=== PATIENT | female | born 1970 | race African-American/Black ===

== ENCOUNTER 2016-11-16 19:51 | Emergency (ER) | payer MEDICARE, MEDICAID ==
[2016-11-16] MEDS ORDERED: ASPIRIN 81 MG TABLET, CHEWABLE PO ONE (20:00)
--- NOTE | 2016-11-16 20:00 | ER Document Report ---
ED Medical Screen (RME) - General Stated Complaint: LEG CRAMPING,DIZZINESS Time seen by provider: 19:54 Mode of Arrival: Wheelchair Information source: Patient Notes: 45-year-old female presents to ED for dizziness and leg cramps with body aches. This happened last week and actually passed out she went to the doctor received a new diagnosis she is unsure of the exact Today she states she was very dizzy felt like she was going pass out again had leg cramps both legs and body aches. Now is having some chest tightness feels like somebody is pushing on her chest for the last 20 minutes. She states again she felt like she was can pass out and she was starting to fall with when her fianc had to call catcher. States her mother had a heart attack or first one in her 40s she is now. I have greeted and performed a rapid initial assessment of this patient. A comprehensive ED assessment and evaluation of the patient, analysis of test results and completion of medical decision making process will be conducted by an additional ED providers. TRAVEL OUTSIDE OF THE [place] IN LAST 30 DAYS: No - Related Data Allergies/Adverse Reactions: codeine [Codeine] Allergy (Verified 11/16/16 19:54) Penicillins Allergy (Verified 11/16/16 19:54) Sulfa (Sulfonamide Antibiotics) Allergy (Verified 11/16/16 19:54) Past Medical History - Past Medical History Cardiac Medical History: Reports: Hx Hypertension - stopped meds 2 years ago Musculoskeltal Medical History: Reports Hx Arthritis - Rheumatoid Past Surgical History: Reports: Hx Cholecystectomy, Hx Orthopedic Surgery - Immunizations Immunizations up to date: No Hx Diphtheria, Pertussis, Tetanus Vaccination: Yes - unknown
[2016-11-16] MEDS ORDERED: ASPIRIN 81 MG TABLET, CHEWABLE ONE (20:02)
[2016-11-16] MEDS ORDERED: NORMAL SALINE 1000 ML 500 ML IV ONE (20:51)
[2016-11-16] MEDS ORDERED: LEVOFLOXACIN 500 MG/D5W RTU 100 ML IV ONE (20:51)
--- NOTE | 2016-11-16 20:54 | EKG REPORT ---
SEVERITY:- BORDERLINE ECG - SINUS RHYTHM BORDERLINE T WAVE ABNORMALITIES : Confirmed by: Moises Amezquita MD 16-Nov-2016 20:53:22
[2016-11-16 22:19] LABS: ALANINE AMINOTRANSFERASE 34 U/L (9-52); ALBUMIN 3.5 g/dL (3.5-5.0); ALKALINE PHOSPHATASE 63 U/L (38-126); ANION GAP 9 (5-19); ASPARTATE AMINO TRANSFERASE 19 U/L (14-36); BILIRUBIN,DIRECT 0.1 mg/dL (0.0-0.3); BILIRUBIN,TOTAL 0.3 mg/dL (0.2-1.3); BLOOD UREA NITROGEN 11 mg/dL (7-20); CALCIUM 8.6 mg/dL (8.4-10.2); CARBON DIOXIDE 29 mmol/L (22-30); CHLORIDE 101 mmol/L (98-107); CREATINE KINASE 25 U/L (30-135); CREATININE RESULT 0.68 mg/dL (0.52-1.25); GLUCOSE 149 mg/dL (75-110); MAGNESIUM 1.9 mg/dL (1.6-2.3); POTASSIUM 3.3 mmol/L (3.6-5.0); SODIUM 138.9 mmol/L (137-145); TOTAL PROTEIN 5.8 g/dL (6.3-8.2)
[2016-11-16 22:31] LABS: CREATINE KINASE MB 0.45 ng/mL (<4.55); TROPONIN I 0.026 ng/mL
[2016-11-16] MEDS ORDERED: POTASSIUM CHLORIDE 10 MEQ TABLET.SA PO ONE (22:46)
[2016-11-16 23:07] LABS: ABSOLUTE BASOPHILS # (AUTO) 0.1 10^3/uL (0.0-0.2); ABSOLUTE EOSINOPHILS # (AUTO) 0.1 10^3/uL (0.0-0.6); ABSOLUTE LYMPHOCYTES (AUTO) 1.8 10^3/uL (0.5-4.7); ABSOLUTE MONOCYTES (AUTO) 0.6 10^3/uL (0.1-1.4); ABSOLUTE NEUT (AUTO) 12.9 10^3/uL (1.7-8.2); BASOPHILS % (AUTO) 0.4 % (0-2); EOSINOPHILS % (AUTO) 0.8 % (0-6); HEMOGLOBIN 10.4 g/dL (12.0-15.5); HGB HCT DIFFERENCE -0.8; LYMPHOCYTES % (AUTO) 11.5 % (13-45); MEAN CORPUSCULAR HEMOGLOBIN 25.9 pg (27.0-33.4); MEAN CORPUSCULAR HGB CONC 32.3 g/dL (32.0-36.0); MEAN CORPUSCULAR VOLUME 80 fl (80-97); MONOCYTES % (AUTO) 4.1 % (3-13); RED CELL DISTRIBUTION WIDTH 18.8 % (11.5-14.0); SEGMENTED NEUTROPHILS % (AUTO) 83.2 % (42-78); WHITE BLOOD COUNT 15.5 10^3/uL (4.0-10.5)
--- NOTE | 2016-11-17 00:10 | ER Document Report ---
ED General - General Chief Complaint: Leg Pain Stated Complaint: LEG CRAMPING,DIZZINESS Mode of Arrival: Wheelchair TRAVEL OUTSIDE OF THE [place] IN LAST 30 DAYS: No - HPI Patient complains to provider of: leg cramping dizziness body aches Notes: Patient with a history of lupus coming in for dizziness and body aches states is been ongoing for the last few days. Patient denies any fevers chills nausea vomiting chest pain abdominal pain. Denies any recent travel patient states she has been compliant with her medications. States night sweats at home. - Related Data Allergies/Adverse Reactions: codeine [Codeine] Allergy (Verified 11/16/16 19:54) Penicillins Allergy (Verified 11/16/16 19:54) Sulfa (Sulfonamide Antibiotics) Allergy (Verified 11/16/16 19:54) Past Medical History - General Information source: Patient - Social History Smoking Status: Current Every Day Smoker Chew tobacco use (# tins/day): No Frequency of alcohol use: None Drug Abuse: None Family History: None, Hypertension Patient has suicidal ideation: No Patient has homicidal ideation: No - Past Medical History Cardiac Medical History: Reports: Hx Hypertension - stopped meds 2 years ago Renal/ Medical History: Denies: Hx Peritoneal Dialysis Musculoskeltal Medical History: Reports Hx Arthritis - Rheumatoid Past Surgical History: Reports: Hx Cholecystectomy, Hx Orthopedic Surgery - Immunizations Immunizations up to date: No Hx Diphtheria, Pertussis, Tetanus Vaccination: Yes - unknown Review of Systems - Review of Systems Constitutional: Other - Dizziness body aches cramps EENT: No symptoms reported Cardiovascular: No symptoms reported Respiratory: No symptoms reported Gastrointestinal: No symptoms reported Genitourinary: No symptoms reported Female Genitourinary: No symptoms reported Musculoskeletal: No symptoms reported Skin: No symptoms reported Hematologic/Lymphatic: No symptoms reported Neurological/Psychological: No symptoms reported Physical Exam - Vital signs Vitals: Temp Pulse Resp BP Pulse Ox 98.8 F 103 H 17 105/66 98 11/16/16 19:56 11/16/16 19:56 11/16/16 19:56 11/16/16 19:56 11/16/16 19:56 Interpretation: Normal - General General appearance: Appears well, Alert - HEENT Head: Normocephalic, Atraumatic Eyes: Normal Pupils: PERRL - Respiratory Respiratory status: No respiratory distress Chest status: Nontender Breath sounds: Normal Chest palpation: Normal - Cardiovascular Rhythm: Regular Heart sounds: Normal auscultation Murmur: No - Abdominal Inspection: Normal Distension: No distension Bowel sounds: Normal Tenderness: Nontender Organomegaly: No organomegaly - Back Back: Normal, Nontender - Extremities General upper extremity: Normal inspection, Nontender, Normal color, Normal ROM , Normal temperature General lower extremity: Normal inspection, Nontender, Normal color, Normal ROM , Normal temperature, Normal weight bearing. No: Lele's sign - Neurological Neuro grossly intact: Yes Cognition: Normal Orientation: AAOx4 [place] Coma Scale Eye Opening: Spontaneous Baltazar Coma Scale Verbal: Oriented [place] Coma Scale Motor: Obeys Commands Baltazar Coma Scale Total: 15 Speech: Normal Motor strength normal: LUE, RUE, LLE, RLE Sensory: Normal - Psychological Associated symptoms: Normal affect, Normal mood - Skin Skin Temperature: Warm Skin Moisture: Dry Skin Color: Normal Course - Re-evaluation Re-evalutation: 11/17/16 00:09 Chest x-ray shows possible developing pneumonia must with explain the patient's night sweats. Patient does have elevation in her WBCs. Patient was given a dose of Levaquin. Patient also shows that her potassium is low and magnesium looks within normal limits. Patient was given oral potassium here IV fluids blood pressure improved. Patient feeling better agrees with plan to be discharged home. 11/17/16 00:34 - Vital Signs Vital signs: Temp Pulse Resp BP Pulse Ox 98.6 F 96 18 111/61 99 11/16/16 23:15 11/16/16 23:15 11/16/16 23:15 11/16/16 23:15 11/16/16 23:15 - Laboratory Result Diagrams: 11/16/16 22:55 11/16/16 21:40 Laboratory results interpreted by me: 11/16/16 11/16/16 21:40 22:55 WBC 15.5 H Hgb 10.4 L Hct 32.0 L MCH 25.9 L RDW 18.8 H Seg Neutrophils % 83.2 H Lymphocytes % 11.5 L Absolute Neutrophils 12.9 H Potassium 3.3 L Glucose 149 H Creatine Kinase 25 L Total Protein 5.8 L Discharge - Discharge Clinical Impression: Hypokalemia, Dehydration Pneumonia Qualifiers: Pneumonia type: due to unspecified organism Laterality: left Lung location: lower lobe of lung Qualified Code(s): J18.1 - Lobar pneumonia, unspecified organism Condition: Good Disposition: HOME, SELF-CARE Instructions: Pneumonia ([facility]), Levofloxacin, Leg Cramps ([facility]), Hypokalemia ([facility] ) Additional Instructions: Please follow-up with your primary care physician. You may need potassium replacement. Please take antibiotics as prescribed. Please drink plenty of fluids to stay hydrated. Prescriptions: Hydrocodone Bit/Acetaminophen [Hydrocodon-Acetaminophen 5-325] 1 each PO Q6 #14 tablet Levofloxacin [Levaquin] 500 mg PO DAILY 9 Days Referrals: EVANGELIST GOODE MD [Primary Care Provider] - Follow up as needed
[2016-11-17] MEDS ORDERED: HYDROCODONE/ACETAMINOPHEN 5-325 MG 6 TAB/DSPK PO PRN (00:32)
[2016-11-17 00:54] VITALS: BP 106/62
== END 2016-11-17 00:51 | disposition home or self-care (01) ==
LOC: ER 19:51
DX: E87.6 Hypokalemia (principal); E86.0 Dehydration; J18.1 Lobar pneumonia, unspecified organism; D72.829 Elevated white blood cell count, unspecified; R42 Dizziness and giddiness; R25.2 Cramp and spasm; R61 Generalized hyperhidrosis; I10 Essential (primary) hypertension; F17.200 Nicotine dependence, unspecified, uncomplicated; Z79.899 Other long term (current) drug therapy; Z88.5 Allergy status to narcotic agent; Z88.0 Allergy status to penicillin; Z88.2 Allergy status to sulfonamides
CPT/HCPCS: 93005; 99283; 96365; 36415; 87040; 82553; 82550; 83735; 85025; 80053; 84484; 71020; 93010; A9270 ×3; J1956; J7030

== ENCOUNTER → 2016-12-03 | Outpatient (CLI) | payer MEDICARE, MEDICAID | LOC: RAD 07:57 | PROVIDERS: ATTEND Internal Medicine | DX: M54.12 Radiculopathy, cervical region (principal) | CPT/HCPCS: 72141 ==

== ENCOUNTER → 2017-04-10 | Outpatient (CLI) | payer MEDICARE, MEDICAID ==
--- NOTE | 2017-04-10 13:55 | RADIOLOGY REPORT (SQ) ---
EXAM DESCRIPTION: SACROILIAC JOINTS COMPLETED DATE/TIME: 04/10/2017 1:11 pm REASON FOR STUDY: SACROILIITIS M46.1 SACROILIITIS, NOT ELSEWHERE CLASSIFIED COMPARISON: 08/09/2015 NUMBER OF VIEWS: Three views. TECHNIQUE: AP and oblique views of the sacroiliac joints. LIMITATIONS: None. FINDINGS: MINERALIZATION: Normal. BONES: No acute fracture or dislocation. No worrisome bone lesions. No significant osteophytes. JOINTS: The sacroiliac joints are patent. No unusual widening, sclerosis, or fusion. SOFT TISSUES: No soft tissue swelling. No radio-opaque foreign body. OTHER: Bilateral total hip arthroplasties noted, unchanged IMPRESSION: NORMAL STUDY OF THE SACROILIAC JOINTS. TECHNICAL DOCUMENTATION: JOB ID: [id number] [employer]- All Rights Reserved
== END ==
LOC: OD 12:56
PROVIDERS: ATTEND Internal Medicine
DX: M46.1 Sacroiliitis, not elsewhere classified (principal)
CPT/HCPCS: 72200

== ENCOUNTER 2017-04-18 11:05 | Emergency (ER) | payer MEDICARE, MEDICAID ==
[2017-04-18 11:10] VITALS: BP 156/103
[2017-04-18] MEDS ORDERED: CYCLOBENZAPRINE HCL 10 MG TABLET PO ONE (12:05)
[2017-04-18] MEDS ORDERED: KETOROLAC TROMETHAMINE 60 MG/2 ML SDV IM ONE (12:05)
--- NOTE | 2017-04-18 12:05 | ER Document Report ---
ED Neck/Back Problem - General Chief Complaint: Back Pain Stated Complaint: BACK PAIN Time Seen by Provider: 04/18/17 11:39 Notes: Patient is a 46-year-old female presents emergency department complaining of right sciatica that she has had since 2014 but has become worse over the past month. Patient has associated radiculopathy from associated lupus and rheumatoid arthritis. Patient states that she has been taking Aleve over-the- counter with mild relief in her symptoms. Is followed with Dr. Strong diagnosed her with sciatica. She is scheduled to [place] [facility] on May 03. She denies any urinary/stool incontinence, saddle anesthesia. Past medical history significant for lupus, rheumatoid arthritis, history of pneumonia, sciatica, hypertension, migraines Past surgical history significant for GABBY 3 on the right, TNA, D&C, history of a left salpingo-oophorectomy, left ulnar release, right trigger finger release, bilateral carpal tunnel release Social history admits to daily tobacco use, denies any alcohol or drug use. Allergies to penicillin, sulfa and codeine. TRAVEL OUTSIDE OF THE [place] IN LAST 30 DAYS: No - Related Data Allergies/Adverse Reactions: codeine [Codeine] Allergy (Verified 04/18/17 11:09) Penicillins Allergy (Verified 04/18/17 11:09) Sulfa (Sulfonamide Antibiotics) Allergy (Verified 04/18/17 11:09) Past Medical History - Social History Smoking Status: Current Every Day Smoker Family History: None, Hypertension Patient has suicidal ideation: No Patient has homicidal ideation: No - Past Medical History Cardiac Medical History: Reports: Hx Hypertension - stopped meds 2 years ago Renal/ Medical History: Denies: Hx Peritoneal Dialysis Musculoskeltal Medical History: Reports Hx Arthritis - Rheumatoid Past Surgical History: Reports: Hx Cholecystectomy, Hx Orthopedic Surgery - Immunizations Immunizations up to date: No Hx Diphtheria, Pertussis, Tetanus Vaccination: Yes - unknown Review of Systems - Review of Systems Constitutional: No symptoms reported Cardiovascular: No symptoms reported Respiratory: No symptoms reported Musculoskeletal: See HPI -: Yes All other systems reviewed and negative Physical Exam - Vital signs Vitals: Temp Pulse Resp BP Pulse Ox 98.6 F 92 18 156/103 H 98 04/18/17 11:09 04/18/17 11:09 04/18/17 11:04/18/17 11:04/18/17 11:09 - General General appearance: Appears well, Alert In distress: None - Back Back: Normal, Tender - right lumbar paraspinal muscle tenderness. No: Deformity /step-off, CVA tenderness, Vertebra tenderness, Scars, Scoliosis, Wounds - Extremities General upper extremity: Normal inspection, Nontender, Normal ROM General lower extremity: Normal inspection, Nontender, Normal color, Normal ROM , Normal strength, Normal temperature, Normal weight bearing. No: Edema - Neurological Neuro grossly intact: Yes Cognition: Normal Orientation: AAOx4 Baltazar Coma Scale Eye Opening: Spontaneous Baltazar Coma Scale Verbal: Oriented [place] Coma Scale Motor: Obeys Commands Baltazar Coma Scale Total: 15 - Skin Skin Temperature: Warm Skin Moisture: Dry Skin Color: Normal Skin Turgor: Elastic Course - Re-evaluation Re-evalutation: 04/18/17 12:05 The patient presents with low back pain without signs of spinal cord compression , cauda equina syndrome, infection, aneurysm, or other serious etiology. The patient is neurologically intact. Given the extremely low risk of these diagnoses further testing and evaluation for these possibilities does not appear to be indicated at this time. The patient has been instructed to return if the symptoms worsen or change in any way. - Vital Signs Vital signs: Temp Pulse Resp BP Pulse Ox 98.6 F 92 18 156/103 H 98 04/18/17 11:04/18/17 11:04/18/17 11:04/18/17 11:04/18/17 11:09
== END 2017-04-18 12:22 | disposition home or self-care (01) ==
LOC: ER 11:05
DX: M54.41 Lumbago with sciatica, right side (principal); M06.9 Rheumatoid arthritis, unspecified; M54.10 Radiculopathy, site unspecified; I10 Essential (primary) hypertension; F17.200 Nicotine dependence, unspecified, uncomplicated; Z96.641 Presence of right artificial hip joint; Z88.2 Allergy status to sulfonamides; Z88.0 Allergy status to penicillin; Z88.5 Allergy status to narcotic agent
CPT/HCPCS: 99283; 96372; A9270; J1885

== ENCOUNTER 2017-05-08 19:06 | Emergency (ER) | payer MEDICARE, MEDICAID ==
[2017-05-08 19:15] VITALS: BP 122/75
== END 2017-05-08 20:10 | disposition left against medical advice (07) ==
LOC: ER 19:06
DX: Z53.21 Procedure and treatment not carried out due to patient leaving prior to being seen by health care provider (principal)

== ENCOUNTER 2017-05-13 07:20 | Emergency (ER) | payer MEDICARE, MEDICAID ==
--- NOTE | 2017-05-13 08:43 | RADIOLOGY REPORT (SQ) ---
EXAM DESCRIPTION: CHEST PA/LAT COMPLETED DATE/TIME: 05/13/2017 8:09 am REASON FOR STUDY: cough, fever, chills, tachycardia COMPARISON: 11/16/2016 EXAM PARAMETERS: NUMBER OF VIEWS: two views TECHNIQUE: Digital Frontal and Lateral radiographic views of the chest acquired. RADIATION DOSE: NA LIMITATIONS: none FINDINGS: LUNGS AND PLEURA: Mild increased density in the right lung base consistent with atelectasi s or pneumonia. MEDIASTINUM AND HILAR STRUCTURES: No masses or contour abnormalities. Mild vascular congestion, chronic finding. No evidence for failure. BONES: No acute findings. HARDWARE: None in the chest. OTHER: No other significant finding. IMPRESSION: 1. Mild right basilar atelectasis or pneumonia. 2. Mild vascular congestion. TECHNICAL DOCUMENTATION: JOB ID: [id number] [employer]- All Rights Reserved
[2017-05-13] MEDS ORDERED: AZITHROMYCIN 250 MG TABLET PO ONE (08:51)
[2017-05-13] MEDS ORDERED: IBUPROFEN 800 MG TABLET PO ONE (08:51)
--- NOTE | 2017-05-13 08:51 | ER Document Report ---
ED ENT - General Chief Complaint: Sinus Congestion Stated Complaint: COLD SYMTPOMS Time Seen by Provider: 05/13/17 07:47 Mode of Arrival: Ambulatory Information source: Patient Notes: Is a 46-year-old female who presents to the ER today for sinus pressure, runny nose, sore throat, productive cough 2 weeks. Patient states that she has been taking [id number] cough medicine which has not been helping. She states that her worst symptom is the sinus pressure. She is using Flonase 3 times a day. She admits to fever and chills but has not taken her temperature. She admits to body aches. TRAVEL OUTSIDE OF THE [place] IN LAST 30 DAYS: No - Related Data Allergies/Adverse Reactions: codeine [Codeine] Allergy (Verified 05/13/17 07:31) Penicillins Allergy (Verified 05/13/17 07:31) Sulfa (Sulfonamide Antibiotics) Allergy (Verified 05/13/17 07:31) Past Medical History - General Information source: Patient - Social History Smoking Status: Current Every Day Smoker Chew tobacco use (# tins/day): No Frequency of alcohol use: Occasional Family History: None, Hypertension Patient has suicidal ideation: No Patient has homicidal ideation: No - Past Medical History Cardiac Medical History: Reports: Hx Hypertension - stopped meds 2 years ago Pulmonary Medical History: Reports: Hx Pneumonia Neurological Medical History: Reports: Hx Migraine Renal/ Medical History: Denies: Hx Peritoneal Dialysis Musculoskeltal Medical History: Reports Hx Arthritis - Rheumatoid Past Surgical History: Reports: Hx Cholecystectomy, Hx Gynecologic Surgery, Hx Orthopedic Surgery, Hx Tonsillectomy - Immunizations Immunizations up to date: No Hx Diphtheria, Pertussis, Tetanus Vaccination: Yes - unknown Review of Systems - Review of Systems Constitutional: See HPI EENT: See HPI Cardiovascular: No symptoms reported Respiratory: See HPI Gastrointestinal: No symptoms reported Genitourinary: No symptoms reported Female Genitourinary: No symptoms reported Musculoskeletal: No symptoms reported Skin: No symptoms reported Hematologic/Lymphatic: No symptoms reported Neurological/Psychological: No symptoms reported Physical Exam - Vital signs Vitals: Temp Pulse Resp BP Pulse Ox 99.5 F 108 H 20 116/87 H 97 05/13/17 07:31 05/13/17 07:31 05/13/17 07:31 05/13/17 07:31 05/13/17 07:31 - Notes Notes: PHYSICAL EXAMINATION: GENERAL: Mildly ill-appearing, but in no acute distress. HEAD: Atraumatic, normocephalic. EYES: Pupils equal round and reactive to light, extraocular movements intact, sclera anicteric, conjunctiva are normal. ENT: ear canals without erythema or foreign body, TMs pearly del real with good bony landmarks, nares with mucoid discharge , oropharynx erythematous without enlarged tonsils without exudates. Moist mucous membranes. maxillary and frontal sinuses tender to palpation NECK: Normal range of motion, supple without lymphadenopathy LUNGS: CTAB and equal. No wheezes rales or rhonchi. HEART: Regular rate and rhythm without murmurs EXTREMITIES: Normal range of motion, no pitting edema. No cyanosis. NEUROLOGICAL: Cranial nerves grossly intact. Normal sensory/motor exams. PSYCH: Normal mood, normal affect. SKIN: Warm, Dry, normal turgor, no rashes or lesions noted Course - Vital Signs Vital signs: Temp Pulse Resp BP Pulse Ox 99.3 F 93 16 109/68 97 05/13/17 09:08 05/13/17 09:08 05/13/17 09:08 05/13/17 09:08 05/13/17 09:08 Discharge - Discharge Clinical Impression: Bronchitis Sinusitis Qualifiers: Sinusitis location: maxillary Chronicity: acute Recurrence: non-recurrent Qualified Code(s): J01.00 - Acute maxillary sinusitis, unspecified Condition: Stable Disposition: HOME, SELF-CARE Additional Instructions: Drink plenty of fluids. Return immediately for any new or worsening symptoms. Follow up with primary care provider, call tomorrow to make followup appointment. Prescriptions: Azithromycin [Zithromax 250 mg Tablet] 250 mg PO ASDIR PRN #6 tablet PRN Reason: Ibuprofen [Motrin 800 mg Tablet] 800 mg PO Q8H PRN #30 tab PRN Reason: Forms: Return to Work Referrals: EVANGELIST GOODE MD [Primary Care Provider] - Follow up as needed
[2017-05-13 09:10] VITALS: BP 109/68
== END 2017-05-13 09:26 | disposition home or self-care (01) ==
LOC: ER 07:20
DX: J40 Bronchitis, not specified as acute or chronic (principal); J01.00 Acute maxillary sinusitis, unspecified; F17.200 Nicotine dependence, unspecified, uncomplicated; I10 Essential (primary) hypertension; Z88.0 Allergy status to penicillin; Z88.6 Allergy status to analgesic agent; Z88.2 Allergy status to sulfonamides; Z90.49 Acquired absence of other specified parts of digestive tract
CPT/HCPCS: 99283; 71020; A9270 ×2

== ENCOUNTER 2017-06-19 12:54 | Emergency (ER) | payer MEDICARE, MEDICAID ==
[2017-06-19 13:23] VITALS: BP 130/80
--- NOTE | 2017-06-19 13:51 | ER Document Report ---
HPI - HPI Patient complains to provider of: dysuria Pain Level: 4 Context: 46 yo female c/o dysuria, urgency, frequency and small voids x 3 days. no fever , back pain, headache, n/v Associated Symptoms: None Exacerbated by: Denies Relieved by: Denies Similar symptoms previously: Yes Recently seen / treated by doctor: No - ROS Systems Reviewed and Negative: Yes All other systems reviewed and negative - REPRODUCTIVE Reproductive: DENIES: : - DERM Skin Color: Normal Past Medical History - General Information source: Patient - Social History Smoking Status: Current Every Day Smoker Frequency of alcohol use: None Lives with: Family Family History: None, Hypertension Patient has suicidal ideation: No Patient has homicidal ideation: No - Past Medical History Cardiac Medical History: Reports: Hx Hypertension - stopped meds 2 years ago Pulmonary Medical History: Reports: Hx Pneumonia Neurological Medical History: Reports: Hx Migraine Renal/ Medical History: Denies: Hx Peritoneal Dialysis Musculoskeltal Medical History: Reports Hx Arthritis - Rheumatoid Past Surgical History: Reports: Hx Cholecystectomy, Hx Gynecologic Surgery, Hx Orthopedic Surgery, Hx Tonsillectomy - Immunizations Immunizations up to date: No Hx Diphtheria, Pertussis, Tetanus Vaccination: Yes - unknown Vertical Provider Document - CONSTITUTIONAL Agree With Documented VS: Yes Exam Limitations: No Limitations - INFECTION CONTROL TRAVEL OUTSIDE OF THE [place] IN LAST 30 DAYS: No - HEENT HEENT: Atraumatic, PERRLA - NECK Neck: Normal Inspection, Supple - RESPIRATORY Respiratory: Breath Sounds Normal, No Respiratory Distress O2 Sat by Pulse Oximetry: 97 - CARDIOVASCULAR Cardiovascular: Regular Rate, Regular Rhythm - BACK Back: Normal Inspection. negative: CVA Tenderness-Right, CVA Tenderness-Left - MUSCULOSKELETAL/EXTREMETIES Musculoskeletal/Extremeties: MAEW, FROM, Non-Tender - NEURO Level of Consciousness: Awake, Alert, Appropriate - DERM Integumentary: Warm, Dry, No Rash Course - Re-evaluation Re-evalutation: 06/19/17 14:21 urinalysis consistent with UTI. pt is nontoxic, afebrile. will treat as uncomplicated cystitis. pt stable for discharge. urine culture added - Vital Signs Vital signs: Temp Pulse Resp BP Pulse Ox 98.3 F 80 20 130/80 H 97 06/19/17 13:20 06/19/17 13:20 06/19/17 13:20 06/19/17 13:20 06/19/17 13:20 Discharge - Discharge Clinical Impression: UTI (urinary tract infection) Qualifiers: Urinary tract infection type: acute cystitis Hematuria presence: without hematuria Qualified Code(s): N30.00 - Acute cystitis without hematuria Condition: Stable Disposition: HOME, SELF-CARE Instructions: Nitrofurantoin ([facility]), Urinary Anesthetic Agent ([facility]), Urinary Tract Infection ([facility]) Additional Instructions: You have a urinary tract infection please take all antibiotic as prescribed push fluids follow up with your primary care if symptoms persist return to ER for any worsening Prescriptions: Fluconazole [Diflucan] 150 mg PO ONCE PRN #1 tablet PRN Reason: Nitrofurantoin Macrocrystal [Macrodantin] 100 mg PO QID #28 capsule Phenazopyridine HCl [Pyridium 200 mg Tablet] 200 mg PO TID #15 tablet
[2017-06-19 14:15] LABS: APPEARANCE,URINE CLOUDY; BILIRUBIN,URINE NEGATIVE (NEGATIVE); GLUCOSE, URINE NEGATIVE (NEGATIVE); KETONES,URINE NEGATIVE (NEGATIVE); LEUKOCYTE ESTERASE,URINE TRACE (NEGATIVE); NITRITE,URINE POSITIVE (NEGATIVE); PROTEIN,URINE 100 mg/dL (NEGATIVE); URINE SPECIFIC GRAVITY 1.014
== END 2017-06-19 14:36 | disposition home or self-care (01) ==
LOC: ER 12:54
DX: N30.00 Acute cystitis without hematuria (principal); I10 Essential (primary) hypertension; F17.200 Nicotine dependence, unspecified, uncomplicated
CPT/HCPCS: 81001; 87086; 87088; 87186; 99283

== ENCOUNTER 2017-07-29 22:55 | Emergency (ER) | payer MEDICARE, MEDICAID ==
[2017-07-29 23:20] VITALS: BP 155/84
== END 2017-07-30 00:20 | disposition left against medical advice (07) ==
LOC: ER 22:55
DX: Z53.21 Procedure and treatment not carried out due to patient leaving prior to being seen by health care provider (principal)

== ENCOUNTER 2017-10-09 19:06 | Emergency (ER) | payer MEDICARE, MEDICAID ==
[2017-10-09] MEDS ORDERED: DEXAMETHASONE SOD PHOS INJ 10 MG/1 ML VIAL IM ONE (21:34)
[2017-10-09] MEDS ORDERED: KETOROLAC TROMETHAMINE INJ/PF 30 MG/1 ML SDV IM ONE (21:34)
--- NOTE | 2017-10-09 21:43 | ER Document Report ---
HPI - HPI Pain Level: 5 Notes: Patient is a 46-year-old female with a history of lupus, rheumatoid arthritis, sciatica, hypertension, migraines, GABBY 3 in the right, T and A, D&C, left salpingo-oophorectomy, left CTR, right trigger finger release who presents to the ED c/o acute exacerbation of her chronic back pain/sciatica x2-3 days. patient states that she usually just takes ibuprofen for her pain, but that pain has been progressing as it has done in the past before. Patient states that truncal movements exacerbate her pain as well as ambulation. Patient states the pain is primarily to the right lower side and right superior buttock. Patient denies any injections or surgeries to her lower back recently. She denies any IV drug use or history of diabetes. Patient is eating and drinking without difficulties. She is urinating normally and having normal bowel movements. Denies any headache, fever, neck pain, URI, sore throat , chest pain, palpitations, syncope, cough, shortness of breath, wheeze, dyspnea , abdominal pain, nausea/vomiting/diarrhea, urinary retention, dysuria, hematuria, loss of control of bowel or bladder, numbness/tingling, saddle anesthesia, muscle paralysis/weakness, or rash. - ROS Notes: REVIEW OF SYSTEMS: CONSTITUTIONAL : Denies fever, chills, or sweats. Denies recent illness. EENT: Denies eye, ear, throat, or mouth pain or symptoms. Denies nasal or sinus congestion or discharge. Denies throat, tongue, or mouth swelling or difficulty swallowing. CARDIOVASCULAR: Denies chest pain. Denies palpitations or racing or irregular heart beat. Denies ankle edema. RESPIRATORY: Denies cough, cold, or chest congestion. Denies shortness of breath, difficulty breathing, or wheezing. GASTROINTESTINAL: Denies abdominal pain or distention. Denies nausea, vomiting , or diarrhea. Denies blood in vomitus, stools, or per rectum. Denies black, tarry stools. Denies constipation. GENITOURINARY: Denies difficulty urinating, painful urination, burning, frequency, blood in urine, or discharge. MUSCULOSKELETAL: see hpi SKIN: Denies rash, lesions or sores. NEUROLOGICAL: Denies dizziness or lightheadedness. Denies headache. Denies weakness or paralysis or loss of use of either side. Denies sensory loss, numbness, or tingling. ALL OTHER SYSTEMS REVIEWED AND NEGATIVE. Dictation was performed using [employer] voice recognition software - CONSTITUTIONAL Constitutional: REPORTS: Chills. DENIES: Fever - REPRODUCTIVE Reproductive: DENIES: : Past Medical History - Social History Smoking Status: Current Every Day Smoker Family History: None, Hypertension Patient has suicidal ideation: No Patient has homicidal ideation: No - Past Medical History Cardiac Medical History: Reports: Hx Hypertension - stopped meds 2 years ago Pulmonary Medical History: Reports: Hx Pneumonia Neurological Medical History: Reports: Hx Migraine Renal/ Medical History: Denies: Hx Peritoneal Dialysis Musculoskeltal Medical History: Reports Hx Arthritis - Rheumatoid Past Surgical History: Reports: Hx Cholecystectomy, Hx Gynecologic Surgery, Hx Orthopedic Surgery - hip x3, Hx Tonsillectomy - Immunizations Immunizations up to date: No Hx Diphtheria, Pertussis, Tetanus Vaccination: Yes - unknown Vertical Provider Document - CONSTITUTIONAL Agree With Documented VS: Yes Notes: PHYSICAL EXAMINATION: GENERAL: Well-appearing, well-nourished and in no acute distress. A&Ox4 LUNGS: Breath sounds clear to auscultation bilaterally and equal. No wheezes rales or rhonchi. HEART: Regular rate and rhythm without murmurs, rubs, gallops. ABDOMEN: Soft, nontender, nondistended abdomen. No guarding, no rebound. No masses appreciated. Normal bowel sounds present. No CVA tenderness bilaterally. No pulsatile mass. Musculoskeletal: Ext b/l: FROM to passive/active. Strength 5+/5. No deficits noted. No bony tenderness of extremities. Back: LROM to passive/active flexion. Strength 5+/5. No vertebral point tenderness, stepoffs, or deformities. No other bony tenderness, erythema, or ecchymosis. SLR negative b/l. + tenderness to the rt L-paraspinal mm and rt SI jt to palp. Extremities: No cyanosis, clubbing, or edema b/l. Peripheral pulses 2+. Capillary refill less than 2 seconds. NEUROLOGICAL: Normal speech, ataxic gait. Normal sensory, motor exams. Reflexes 2+ b/l. PSYCH: Normal mood, normal affect. SKIN: Warm, Dry, normal turgor, no rashes or lesions noted. - INFECTION CONTROL TRAVEL OUTSIDE OF THE [place] IN LAST 30 DAYS: No - RESPIRATORY O2 Sat by Pulse Oximetry: 100 Course - Re-evaluation Re-evalutation: 10/09/17 21:41 Patient is an afebrile, well-hydrated 46-year-old female presents ED with acute on chronic exacerbation of low back pain, suspect strain. Vitals are stable. PE is otherwise unremarkable for any focal neurological deficits. No imaging or labs warranted at this time based on H&P. Low suspicion for any meningitis, fracture, expanding/ruptured AAA, cauda equina syndrome, epidural mass lesion/ abscess, herniated disc causing severe spinal stenosis, or other systemic infection at this time. Patient is aware that her condition can change from initial presentation and that she needs monitor symptoms closely for any acute changes. Toradol and Decadron given today. I will send her home with a prescription for baclofen. Conservative measures for symptoms otherwise. Recheck with your PCM in 3-5 days. Consider consult with orthopedics and physical therapy. Return to the ED with any worsening/concerning symptoms otherwise as reviewed in discharge. Patient is in agreement. - Vital Signs Vital signs: Temp Pulse Resp BP Pulse Ox 98.7 F 93 18 138/76 H 100 10/09/17 19:26 10/09/17 19:26 10/09/17 19:26 10/09/17 19:26 10/09/17 19:26 Discharge - Discharge Clinical Impression: Low back strain Qualifiers: Encounter type: initial encounter Qualified Code(s): S39.012A - Strain of muscle, fascia and tendon of lower back, initial encounter Condition: Stable Disposition: HOME, SELF-CARE Instructions: Ice Packs ([facility]), Warm Packs ([facility]), Low Back Pain ([facility]), Muscle Strain ([facility]) Additional Instructions: Rest, Ice Tylenol/ibuprofen as needed Light stretches daily Strength exercises as able Moist heat and massage may help F/u with your PCP in 3-5 days for a recheck Consider consult(s) with Orthopedics/physical therapy for ongoing/worsening symptoms Return to the ED with any worsening symptoms and/or development of fever, headache, chest pain, palpitations, syncope, shortness of breath, trouble breathing, abdominal pain, n/v/d, blood in stool/urine, loss of control of bowel /bladder, urinary retention, muscle weakness/paralysis, saddle anesthesia, numbness/tingling, or other worsening symptoms that are concerning to you. Prescriptions: Baclofen [Baclofen 10 mg Tablet] 5 - 10 mg PO BID PRN #10 tablet PRN Reason: Forms: Elevated Blood Pressure Referrals: EVANGELIST GOODE MD [Primary Care Provider] - Follow up in 3-5 days [facility] [Provider Group] - Follow up as needed
[2017-10-09 22:29] VITALS: BP 140/69
== END 2017-10-09 22:21 | disposition home or self-care (01) ==
LOC: ER 19:06
DX: S39.012A Strain of muscle, fascia and tendon of lower back, initial encounter (principal); M54.9 Dorsalgia, unspecified; G89.29 Other chronic pain; I10 Essential (primary) hypertension; M06.9 Rheumatoid arthritis, unspecified; F17.200 Nicotine dependence, unspecified, uncomplicated; X58.XXXA Exposure to other specified factors, initial encounter
CPT/HCPCS: 99283; 96372; J1885; J1100

== ENCOUNTER 2017-11-23 11:11 | Inpatient (IN) | payer MEDICARE, MEDICAID ==
--- NOTE | 2017-11-23 11:40 | ER Document Report ---
ED Medical Screen (RME) - General Chief Complaint: Weakness Stated Complaint: PAIN ALL OVER Time Seen by Provider: 11/23/17 11:21 Mode of Arrival: Ambulatory Information source: Patient Notes: 46-year-old female history of lupus presents with 3 day duration of constant sleeping as well as generalized body aches. Patient notes she is forgetful Accu-Chek 115 I have greeted and performed a rapid initial assessment of this patient. A comprehensive ED assessment and evaluation of the patient, analysis of test results and completion of the medical decision making process will be conducted by additional ED providers. PHYSICAL EXAMINATION: GENERAL: Well-appearing, well-nourished and in no acute distress. HEAD: Atraumatic, normocephalic. EYES: Pupils equal round extraocular movements intact, conjunctiva are normal. ENT: Nares patent NECK: Normal range of motion LUNGS: No respiratory distress Musculoskeletal: Normal range of motion NEUROLOGICAL: Normal speech, normal gait. PSYCH: Normal mood, normal affect. SKIN: Warm, Dry, normal turgor, no rashes or lesions noted. TRAVEL OUTSIDE OF THE [place] IN LAST 30 DAYS: No - Related Data Allergies/Adverse Reactions: codeine [Codeine] Allergy (Verified 11/23/17 11:12) Penicillins Allergy (Verified 11/23/17 11:12) Sulfa (Sulfonamide Antibiotics) Allergy (Verified 11/23/17 11:12) Past Medical History - Social History Chew tobacco use (# tins/day): No Frequency of alcohol use: None Drug Abuse: None - Past Medical History Cardiac Medical History: Reports: Hx Hypertension - stopped meds 2 years ago Pulmonary Medical History: Reports: Hx Pneumonia Neurological Medical History: Reports: Hx Migraine Renal/ Medical History: Denies: Hx Peritoneal Dialysis Musculoskeltal Medical History: Reports Hx Arthritis - Rheumatoid Past Surgical History: Reports: Hx Cholecystectomy, Hx Gynecologic Surgery, Hx Orthopedic Surgery - hip x3, Hx Tonsillectomy - Immunizations Immunizations up to date: No Hx Diphtheria, Pertussis, Tetanus Vaccination: Yes - unknown Physical Exam - Vital signs Vitals: Temp Pulse Resp BP Pulse Ox 98.6 F 116 H 20 121/88 H 97 11/23/17 11:15 11/23/17 11:15 11/23/17 11:15 11/23/17 11:15 11/23/17 11:15 Course - Vital Signs Vital signs: Temp Pulse Resp BP Pulse Ox 98.6 F 116 H 20 121/88 H 97 11/23/17 11:15 11/23/17 11:15 11/23/17 11:15 11/23/17 11:15 11/23/17 11:15
--- NOTE | 2017-11-23 13:00 | RADIOLOGY REPORT (SQ) ---
EXAM DESCRIPTION: CT HEAD WITHOUT COMPLETED DATE/TIME: 11/23/2017 12:44 pm REASON FOR STUDY: altered COMPARISON: None. TECHNIQUE: Axial images acquired through the brain without intravenous contrast. Images reviewed wi th bone, brain and subdural windows. Images stored on PACS. All CT scanners at this facility use dose modulation, iterative reconstruction, and/or weight based d osing when appropriate to reduce radiation dose to as low as reasonably achievable (ALARA). [facility]: Dose Right [facility]: CareDose [facility]: Dose Right [facility]: Teradose 4D [facility]: Smart TravelAI RADIATION DOSE: CT Rad equipment meets quality standard of care and radiation dose reduction techniq ues were employed. CTDIvol: 64.6 mGy. DLP: 1163 mGy-cm. mGy. LIMITATIONS: None. FINDINGS: VENTRICLES: Normal size and contour. CEREBRUM: No mass effect. No hemorrhage. No midline shift. Normal alves/white matter differentiatio n. No evidence for acute territorial infarction. CEREBELLUM: No mass effect. No hemorrhage. No alteration of density. No evidence for acute infarct ion. EXTRAAXIAL SPACES: No fluid collections. ORBITS AND GLOBE: Symmetrical contour of the globes. CALVARIUM: No depressed skull fracture. PARANASAL SINUSES: No air-fluid level. Mild mucosal thickening in the bilateral maxillary sinuses an d ethmoidal air cells. SOFT TISSUES: No hematoma. IMPRESSION: No acute intracranial hemorrhage or acute territorial infarct. EVIDENCE OF ACUTE STROKE: NO. COMMENT: Quality ID # [id number]: Final reports with documentation of one or more dose reduction techniques (e.g., Automated exposure control, adjustment of the mA and/or kV according to patient size, use of iterative reconstruction technique) TECHNICAL DOCUMENTATION: JOB ID: [id number] 2010 [employer]- All Rights Reserved
[2017-11-23 13:07] LABS: ABSOLUTE EOSINOPHILS # (AUTO) 0.1 10^3/uL (0.0-0.6); ABSOLUTE LYMPHOCYTES (AUTO) 1.4 10^3/uL (0.5-4.7); ABSOLUTE MONOCYTES (AUTO) 0.8 10^3/uL (0.1-1.4); ABSOLUTE NEUT (AUTO) 7.5 10^3/uL (1.7-8.2); BASOPHILS % (AUTO) 0.3 % (0-2); HEMATOCRIT 41.2 % (36.0-47.0); HEMOGLOBIN 13.6 g/dL (12.0-15.5); LYMPHOCYTES % (AUTO) 13.9 % (13-45); MEAN CORPUSCULAR HEMOGLOBIN 24.2 pg (27.0-33.4); MEAN CORPUSCULAR VOLUME 73 fl (80-97); PLATELET COUNT 168 10^3/uL (150-450); RED BLOOD COUNT 5.62 10^6/uL (3.72-5.28); RED CELL DISTRIBUTION WIDTH 19.8 % (11.5-14.0); SEGMENTED NEUTROPHILS % (AUTO) 76.8 % (42-78); TOTAL CELLS COUNTED % (AUTO) 100 %; WHITE BLOOD COUNT 9.8 10^3/uL (4.0-10.5)
--- NOTE | 2017-11-23 13:29 | ER Document Report ---
ED General - General Chief Complaint: Weakness Stated Complaint: PAIN ALL OVER Time Seen by Provider: 11/23/17 11:21 Mode of Arrival: Ambulatory Notes: Patient is here to be evaluated for excessive sleepiness over the past 3 days. says he works from 7 AM to 3 PM and whenever he has been at home, outside of his work, although patient does is sleep. He is not sure if she is getting up to use the bathroom and she does not recall either. They said that she is acting "foggy" and forgetful along with all the sleeping. She always is hurting because she has been diagnosed with lupus 26 years ago. She is on multiple medications for this disorder including Plaquenil. She also has sacroiliac pain and is currently on prednisone in a declining dosage. Patient' s says that she has been missing work and doing nothing but laying in the bed sleeping all the time. 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 Patient has occasional nausea, but not vomiting. No diarrhea. Developed a right temporal headache when she arrived here today. It is typical of previous headaches that the patient has often had. She also has some chest soreness, which she says is from coughing so much. She has had a primarily dry cough over the past few days and getting up very little phlegm. No blood seen. Is not aware of any fevers, although she has had some chills. Denies any UTI symptoms. Patient is on the Depakote shot for control. Seen at [facility] office about 4 weeks ago and put on prednisone for sciatica on a tapered dose which she is still taking Patient denies any mental conditions or depression, anxiety, etc. TRAVEL OUTSIDE OF THE [place] IN LAST 30 DAYS: No - Related Data Allergies/Adverse Reactions: codeine [Codeine] Allergy (Verified 11/23/17 11:12) Penicillins Allergy (Verified 11/23/17 11:12) Sulfa (Sulfonamide Antibiotics) Allergy (Verified 11/23/17 11:12) Past Medical History - General Information source: Patient - Social History Smoking Status: Current Every Day Smoker Chew tobacco use (# tins/day): No Frequency of alcohol use: None Drug Abuse: None Family History: None, Reviewed & Not Pertinent, Hypertension Patient has suicidal ideation: No Patient has homicidal ideation: No - Past Medical History Cardiac Medical History: Reports: Hx Hypertension - stopped meds 2 years ago Denies: Hx Coronary Artery Disease Pulmonary Medical History: Reports: Hx Pneumonia Neurological Medical History: Reports: Hx Migraine Endocrine Medical History: Denies: Hx Diabetes Mellitus Type 1, Hx Diabetes Mellitus Type 2 Musculoskeltal Medical History: Reports Hx Arthritis - Rheumatoid, Reports Other - Lupus diagnosed when patient was 20 years old. Past Surgical History: Reports: Hx Cholecystectomy, Hx Gynecologic Surgery, Hx Orthopedic Surgery - hip x3; bilateral total hip replacements., Hx Tonsillectomy - Immunizations Immunizations up to date: No Hx Diphtheria, Pertussis, Tetanus Vaccination: Yes - unknown Review of Systems - Review of Systems Notes: REVIEW OF SYSTEMS: CONSTITUTIONAL : Denies fever. Says she has had some chills. EENT: Denies eye, ear, nose or mouth or throat pain or other symptoms. CARDIOVASCULAR: Denies chest pain, just soreness from coughing. RESPIRATORY: Has a dry cough. Feel short of breath. No significant phlegm production and no blood noted. GASTROINTESTINAL: Denies abdominal pain or nausea, vomiting, or diarrhea. GENITOURINARY: Denies difficulty or painful urinating, urinary frequency, blood in urine. MUSCULOSKELETAL: Denies back or neck pain. Denies joint pain or swelling. SKIN: Denies rash or skin lesions. NEUROLOGICAL: See HPI. Denies LOC or altered mental status but excessive sleeping described in HPI. Has a right temporal headache, which just started upon arrival in the emergency department. She has had similar headaches many times in the past. Denies sensory loss or motor deficits. ALL OTHER SYSTEMS REVIEWED AND NEGATIVE. Physical Exam - Vital signs Vitals: Temp Pulse Resp BP Pulse Ox 98.6 F 116 H 20 121/88 H 97 11/23/17 11:15 11/23/17 11:15 11/23/17 11:15 11/23/17 11:15 11/23/17 11:15 Interpretation: Normal, Tachycardic - Minor at 116 in triage. - Notes Notes: PHYSICAL EXAMINATION: GENERAL: Well-appearing, in no acute distress. Helped to the restroom in a wheelchair, but when she returned, she was able to stand and transfer to the bed without any difficulty. Appears to be very awake and answers questions appropriately except for those that she says she does not remember, such as whether she has been going to the bathroom to urinate, or eating any food, etc. HEAD: Atraumatic, normocephalic. EYES: Pupils equal round and reactive to light, extraocular movements intact. ENT: oropharynx clear without exudates. Moist mucous membranes. NECK: Normal range of motion, supple. Carotid arteries without bruits heard. LUNGS: Breath sounds clear and equal bilaterally. HEART: Regular rate and rhythm without murmurs. Heart rate about 100 by me at bedside. ABDOMEN: Soft, nontender. No guarding or rebound. No masses. BACK: No tenderness throughout entire back. EXTREMITIES: Normal range of motion without pain. NEUROLOGICAL: Normal speech, normal gait. Normal sensory, motor, and reflex exams. Awake, alert, and oriented x3. Memory seems decreased. May be confused. Cranial nerves normal. PSYCH: Normal mood, normal affect. SKIN: Warm, dry, no rashes. Course - Re-evaluation Re-evalutation: 11/23/17 17:07 Patient's potassium was 2.7. Urinalysis looks like definite UTI. Patient has received a liter of saline and KCl 40 mg p.o. Spoke with patient's primary care provider, Dr. Strong, and he will admit the patient for observation for UTI, dehydration, hypokalemia. - Vital Signs Vital signs: Temp Pulse Resp BP Pulse Ox 98.6 F 116 H 20 121/88 H 97 11/23/17 11:15 11/23/17 11:15 11/23/17 11:15 11/23/17 11:15 11/23/17 11:15 - Laboratory Result Diagrams: 11/23/17 12:22 11/23/17 15:10 Laboratory results interpreted by me: 11/23/17 11/23/17 11/23/17 11:39 12:00 12:22 RBC 5.62 H MCV 73 L MCH 24.2 L RDW 19.8 H Sodium Potassium Chloride Carbon Dioxide BUN POC Glucose 115 H Calcium Urine Protein 100 H Urine Blood LARGE H Urine Urobilinogen 4.0 H Ur Leukocyte Esterase MODERATE H 11/23/17 15:10 RBC MCV MCH RDW Sodium 136.2 L Potassium 2.6 L* Chloride 92 L Carbon Dioxide 33 H BUN 22 H POC Glucose Calcium 8.2 L Urine Protein Urine Blood Urine Urobilinogen Ur Leukocyte Esterase - EKG Interpretation by Me EKG shows normal: Sinus rhythm Rate: Tachycardia Rhythm: NSR Additional EKG results interpreted by me: 11/23/17 17:[address] changes which are different than EKG that she had done here about a year ago. Discharge - Discharge Clinical Impression: Urinary tract infection, Hypokalemia, Dehydration Condition: Stable Disposition: ADMITTED OBSERVATION Admitting Provider: [facility] Admitted: Telemetry
--- NOTE | 2017-11-23 13:56 | RADIOLOGY REPORT (SQ) ---
EXAM DESCRIPTION: CHEST PA/LAT COMPLETED DATE/TIME: 11/23/2017 1:06 pm REASON FOR STUDY: altered COMPARISON: 05/13/2017 EXAM PARAMETERS: NUMBER OF VIEWS: two views TECHNIQUE: Digital Frontal and Lateral radiographic views of the chest acquired. RADIATION DOSE: NA LIMITATIONS: none FINDINGS: LUNGS AND PLEURA: No infiltrate, masses or pneumothorax. No pleural effusion. MEDIASTINUM AND HILAR STRUCTURES: No masses or contour abnormalities. HEART AND VASCULAR STRUCTURES: Heart normal size. No evidence for failure. BONES: Dorsal scoliosis convex left. Changes of a cervical rib. HARDWARE: None in the chest. OTHER: No other significant finding. IMPRESSION: NO ACUTE DISEASE. TECHNICAL DOCUMENTATION: JOB ID: [id number] [place]-[id number] 2010 [employer]- All Rights Reserved
[2017-11-23 14:12] LABS: AMORPHOUS SEDIMENT,URINE TRACE /HPF; APPEARANCE,URINE TURBID; BILIRUBIN,URINE NEGATIVE (NEGATIVE); GLUCOSE, URINE NEGATIVE (NEGATIVE); KETONES,URINE NEGATIVE (NEGATIVE); LEUKOCYTE ESTERASE,URINE MODERATE (NEGATIVE); NITRITE,URINE NEGATIVE (NEGATIVE); PROTEIN,URINE 100 mg/dL (NEGATIVE); URINE SPECIFIC GRAVITY 1.023
[2017-11-23 14:13] LABS: COLOR,URINE DARK YELLOW
[2017-11-23 14:21] LABS: URINE AMPHETAMINES SCREEN NEGATIVE; URINE BARBITURATES SCREEN NEGATIVE; URINE BENZODIAZEPINES SCREEN NEGATIVE; URINE COCAINE SCREEN NEGATIVE; URINE MARIJUANA (THC) SCREEN NEGATIVE; URINE METHADONE SCREEN NEGATIVE; URINE PHENCYCLIDINE SCREEN NEGATIVE
[2017-11-23] MEDS ORDERED: CEFTRIAXONE INJ 1000 MG VIAL IV ONE (14:51)
[2017-11-23] MEDS ORDERED: RINGERS SOLUTION,LACTATED 1,000 ML IV ONE (15:54)
[2017-11-23 16:01] LABS: ALANINE AMINOTRANSFERASE 31 U/L (9-52); ALBUMIN 3.9 g/dL (3.5-5.0); ALKALINE PHOSPHATASE 75 U/L (38-126); ANION GAP 11 (5-19); ASPARTATE AMINO TRANSFERASE 35 U/L (14-36); BILIRUBIN,DIRECT 0.4 mg/dL (0.0-0.4); BILIRUBIN,TOTAL 0.5 mg/dL (0.2-1.3); BLOOD UREA NITROGEN 22 mg/dL (7-20); CALCIUM 8.2 mg/dL (8.4-10.2); CARBON DIOXIDE 33 mmol/L (22-30); CHLORIDE 92 mmol/L (98-107); GLUCOSE 102 mg/dL (75-110); SODIUM 136.2 mmol/L (137-145); TOTAL PROTEIN 6.7 g/dL (6.3-8.2)
[2017-11-23 16:11] LABS: POTASSIUM 2.6 mmol/L (3.6-5.0)
[2017-11-23] MEDS ORDERED: POTASSIUM CHLORIDE 10 MEQ TABLET.SA PO ONE (16:11)
[2017-11-23] MEDS ORDERED: LEVOFLOXACIN 750 MG/D5W RTU 750 MG/150 ML RTUPB IV ONE (23:00)
[2017-11-23] MEDS ORDERED: POTASSI CL 40 MEQ/NS 1L 1,000 ML IV PRN (23:13)
[2017-11-24 01:15] LABS: INTERNATIONAL RATION (INR) 0.93; PROTHROMBIN TIME 13.2 SEC (11.4-15.4)
[2017-11-24 01:16] LABS: PARTIAL THROMBOPLASTIN TIME 40.1 SEC (23.5-35.8)
[2017-11-24 01:29] LABS: MAGNESIUM 2.2 mg/dL (1.6-2.3); PHOSPHORUS 2.9 mg/dL (2.5-4.5)
[2017-11-24 01:42] LABS: TROPONIN I 0.035 ng/mL
[2017-11-24 01:46] LABS: CREATINE KINASE MB < 0.22 ng/mL (<4.55); FREE T4 (FREE THYROXINE) 1.95 ng/dL (0.78-2.19)
[2017-11-24 02:00] LABS: THYROID STIMULATING HORMONE 1.82 uIU/mL (0.47-4.68)
[2017-11-24 04:11] LABS: APPEARANCE,URINE SLIGHTLY-CLOUDY; BILIRUBIN,URINE NEGATIVE (NEGATIVE); COLOR,URINE YELLOW; GLUCOSE, URINE NEGATIVE (NEGATIVE); KETONES,URINE NEGATIVE (NEGATIVE); LEUKOCYTE ESTERASE,URINE NEGATIVE (NEGATIVE); NITRITE,URINE NEGATIVE (NEGATIVE); PROTEIN,URINE 30 mg/dL (NEGATIVE); URINE SPECIFIC GRAVITY 1.016
[2017-11-24 04:32] LABS: UR PRO/CREAT RATIO RESULT 0.2 mg/mg (0.0-0.2); URINE CREATININE 146.8 mg/dL (15-278); URINE PROTEIN 31.8 mg/dL (<12)
[2017-11-24 06:26] LABS: ALANINE AMINOTRANSFERASE 36 U/L (9-52); ALBUMIN 3.3 g/dL (3.5-5.0); ALKALINE PHOSPHATASE 71 U/L (38-126); ANION GAP 7 (5-19); ASPARTATE AMINO TRANSFERASE 28 U/L (14-36); BILIRUBIN,DIRECT 0.2 mg/dL (0.0-0.4); BILIRUBIN,TOTAL 0.5 mg/dL (0.2-1.3); BLOOD UREA NITROGEN 15 mg/dL (7-20); CALCIUM 8.6 mg/dL (8.4-10.2); CARBON DIOXIDE 32 mmol/L (22-30); CHLORIDE 95 mmol/L (98-107); CHOLESTEROL 114.34 mg/dL (0-200); CREATINE KINASE 80 U/L (30-135); GLUCOSE 116 mg/dL (75-110); SODIUM 134.1 mmol/L (137-145); TOTAL PROTEIN 5.7 g/dL (6.3-8.2); TRIGLYCERIDES 394 mg/dL (<150)
[2017-11-24 06:37] LABS: DIRECT LDL 38 mg/dL (<100)
[2017-11-24 06:38] LABS: TROPONIN I 0.033 ng/mL; VLDL CHOLESTEROL 78.8 mg/dL (10-31)
[2017-11-24 06:40] LABS: POTASSIUM 2.8 mmol/L (3.6-5.0)
[2017-11-24 06:48] LABS: CREATINE KINASE MB < 0.22 ng/mL (<4.55)
[2017-11-24 07:24] LABS: ABSOLUTE BASOPHILS # (AUTO) 0.1 10^3/uL (0.0-0.2); ABSOLUTE EOSINOPHILS # (AUTO) 0.1 10^3/uL (0.0-0.6); ABSOLUTE LYMPHOCYTES (AUTO) 1.6 10^3/uL (0.5-4.7); ABSOLUTE MONOCYTES (AUTO) 0.9 10^3/uL (0.1-1.4); ABSOLUTE NEUT (AUTO) 5.3 10^3/uL (1.7-8.2); BASOPHILS % (AUTO) 0.8 % (0-2); EOSINOPHILS % (AUTO) 1.7 % (0-6); HEMATOCRIT 36.5 % (36.0-47.0); HEMOGLOBIN 11.9 g/dL (12.0-15.5); LYMPHOCYTES % (AUTO) 20.2 % (13-45); MEAN CORPUSCULAR HEMOGLOBIN 23.7 pg (27.0-33.4); MEAN CORPUSCULAR HGB CONC 32.7 g/dL (32.0-36.0); MEAN CORPUSCULAR VOLUME 73 fl (80-97); MONOCYTES % (AUTO) 11.3 % (3-13); PLATELET COUNT 141 10^3/uL (150-450); RED BLOOD COUNT 5.03 10^6/uL (3.72-5.28); RED CELL DISTRIBUTION WIDTH 19.1 % (11.5-14.0); TOTAL CELLS COUNTED % (AUTO) 100 %
[2017-11-24] MEDS ORDERED: ACETAMINOPHEN 325 MG TABLET PO PRN (09:37)
[2017-11-24] MEDS ORDERED: ONDANSETRON 4 MG TAB.RAPDIS PO PRN (09:38)
[2017-11-24] MEDS: ENOXAPARIN SODIUM INJ 40 MG/0.4 ML DISP.SYRIN SUBCUT SCH (10:07)
--- NOTE | 2017-11-24 11:55 | EKG REPORT ---
SEVERITY:- ABNORMAL ECG - SINUS TACHYCARDIA RIGHT ATRIAL ABNORMALITY REPOL ABNRM SUGGESTS ISCHEMIA, ANT-LAT LEADS BORDERLINE PROLONGED QT INTERVAL : Confirmed by: Sparkle Palomares MD 24-Nov-2017 11:54:30
[2017-11-24] MEDS ORDERED: CYCLOBENZAPRINE HCL 10 MG TABLET PO PRN (12:05)
[2017-11-24 12:20] LABS: TROPONIN I 0.022 ng/mL
[2017-11-24 12:22] LABS: CREATINE KINASE MB < 0.22 ng/mL (<4.55)
[2017-11-24] MEDS ORDERED: HYDROXYCHLOROQUINE SULFATE 200 MG TABLET PO ONE (12:45)
[2017-11-24] MEDS ORDERED: LISINOPRIL 5 MG TABLET PO ONE (12:45)
[2017-11-24] MEDS ORDERED: LANSOPRAZOLE 30 MG TAB.RAP.DR PO ONE (13:00)
[2017-11-24 14:26] LABS: ALANINE AMINOTRANSFERASE 41 U/L (9-52); ALBUMIN 3.6 g/dL (3.5-5.0); ALKALINE PHOSPHATASE 79 U/L (38-126); ANION GAP 10 (5-19); ASPARTATE AMINO TRANSFERASE 31 U/L (14-36); BILIRUBIN,DIRECT 0.2 mg/dL (0.0-0.4); BILIRUBIN,TOTAL 0.4 mg/dL (0.2-1.3); BLOOD UREA NITROGEN 13 mg/dL (7-20); CARBON DIOXIDE 29 mmol/L (22-30); CHLORIDE 97 mmol/L (98-107); GLUCOSE 88 mg/dL (75-110); POTASSIUM 3.4 mmol/L (3.6-5.0); SODIUM 136.2 mmol/L (137-145); TOTAL PROTEIN 6.1 g/dL (6.3-8.2)
[2017-11-24] MEDS: PREGABALIN 75 MG CAPSULE PO SCH ×2 (14:27→21:38)
[2017-11-24] MEDS: POTASSI CL 20 MEQ/50 ML RIDER 20 MEQ/50 ML RTUPB IV SCH ×2 (14:32→16:55)
--- NOTE | 2017-11-24 14:36 | RADIOLOGY REPORT (SQ) ---
EXAM DESCRIPTION: MRI HEAD COMBO COMPLETED DATE/TIME: 11/24/2017 1:33 pm REASON FOR STUDY: encephalopathy E08.29 DIABETES DUE TO UNDRL CONDITION W OTH DIABETIC KIDNEY I50. 21 ACUTE SYSTOLIC (CONGESTIVE) HEART FAILURE D46.20 REFRACTORY ANEMIA WITH EXCESS OF BLASTS, UNSPEC IFIED COMPARISON: CT from yesterday. TECHNIQUE: Multiplanar imaging includes noncontrasted T1, T2, FLAIR, and Diffusion with ADC map seq uences. Contrast enhanced T1 images. Images stored on PACS. CONTRAST TYPE AND DOSE: 15 mL Multihance. RENAL FUNCTION: GFR > 60. LIMITATIONS: None. FINDINGS: ANATOMY: No anomalies. Normal vascular flow voids. Pituitary fossa normal. CSF SPACES: Normal size and contour. No hemorrhage. CEREBRUM: A few high-signal intensity lesions scattered throughout the white matter on FLAIR imaging likely reflecting chronic microvascular ischemic change. Sulci and gyri normal in size and contour. N o evidence of hemorrhage, mass or extraaxial fluid collection. No enhancing lesions. POSTERIOR FOSSA: No signal alteration. No hemorrhage. No edema, masses or mass effect. Internal audit ory canals, cerebello-pontine angles, mastoids normal. DIFFUSION: Negative for acute or subacute infarction. ORBITS: No masses. Globes normal. PARANASAL SINUSES: Mild mucosal thickening. Mild sphenoid sinus fluid. OTHER: No other significant finding. IMPRESSION: 1. Suspect very mild small vessel vasculopathy. 2. Mild sinus disease. This may includ e a component of acute disease given fluid in the sphenoid sinus. 3. No recent CVA. No enhancing le sions. EVIDENCE OF ACUTE STROKE: NO. TECHNICAL DOCUMENTATION: JOB ID: [id number] All Rights Reserved
--- NOTE | 2017-11-24 15:47 | PDOC H&P ---
History of Present Illness Admission Date/PCP: 11/23/17 17:59 EVANGELIST GOODE MD History of Present Illness: VIPIN DUNN is a 46 year old female, she was brought to the emergency room for evaluation of excessive somnolence for the last 3 days, patient spouse brought patient to the emergency room for evaluation, he works from 7 AM to 3 PM and the history was that whenever he has been home, outside his workplace , all patient does is sleep . She stated that she does not remember what happened in the last 3 days, she denies any history of feeling sick prior to the last 3 days when she became excessive stuporous. In the emergency room she was evaluated CT head was done it was negative for any acute pathology, the urinalysis suggests urinary tract infection also found was severe hypokalemia. She has a history of systemic lupus erythematosus, on maintenance therapy with Plaquenil. There is no apparent metabolic explanation for the encephalopathic symptoms, the liver function test was normal, the electrolytes other than the potassium was normal. She has no history of seizure that she know of, MRI brain was done today, it showed a few I signal intensity lesions scattered throughout the white matter on FLAIR imaging likely representing chronic microvascular ischemic change. Sulci and gyri are normal in size and contour, no evidence of hemorrhage, mass or extra is a fluid collection no enhancing lesions no evidence of acute infarction there is mild mucosal thickening of the paranasal sinuses Past Medical History Cardiac Medical History: Reports: Hypertension - stopped meds 2 years ago Pulmonary Medical History: Reports: Pneumonia Neurological Medical History: Reports: Migraine Musculoskeltal Medical History: Reports: Arthritis - Rheumatoid, Other - Lupus diagnosed when patient was 20 years old. Past Surgical History Past Surgical History: Reports: Cholecystectomy, Orthopedic Surgery - hip x3; bilateral total hip replacements., Tonsillectomy Social History Smoking Status: Never Smoker Frequency of Alcohol Use: None Hx Recreational Drug Use: No Drugs: None Hx Prescription Drug Abuse: No Family History Family History: None, Reviewed & Not Pertinent, Hypertension Parental Family History Reviewed: Yes Children Family History Reviewed: Yes Sibling(s) Family History Reviewed.: Yes Medication/Allergy Home Medications: Alprazolam [Xanax 0.5 mg Tablet] 0.5 mg PO BID 11/24/17 Cyclobenzaprine HCl [Flexeril 10 mg Tablet] 10 mg PO TIDP PRN 11/24/17 Hydroxychloroquine Sulfate [Plaquenil 200 mg Tablet] 200 mg PO BID 11/24/17 Ibuprofen [Motrin 800 mg Tablet] 800 mg PO Q8H PRN 11/24/17 Lisinopril [Prinivil 5 mg Tablet] 5 mg PO DAILY 11/24/17 Omeprazole 40 mg PO DAILY 11/24/17 Pregabalin [Lyrica 75 mg Capsule] 75 mg PO Q8 11/24/17 Allergies/Adverse Reactions: codeine [Codeine] Allergy (Verified 11/23/17 11:12) Penicillins Allergy (Verified 11/23/17 11:12) Sulfa (Sulfonamide Antibiotics) Allergy (Verified 11/23/17 11:12) Review of Systems Constitutional: ABSENT: chills, fever(s), headache(s), weight gain, weight loss Eyes: ABSENT: visual disturbances Ears: ABSENT: hearing changes Cardiovascular: ABSENT: chest pain, dyspnea on exertion, edema, orthropnea, palpitations Respiratory: ABSENT: cough, hemoptysis Gastrointestinal: ABSENT: abdominal pain, constipation, diarrhea, hematemesis, hematochezia, nausea, vomiting Genitourinary: ABSENT: dysuria, hematuria Musculoskeletal: PRESENT: back pain, other Integumentary: ABSENT: rash, wounds Neurological: ABSENT: abnormal gait, abnormal speech, confusion, dizziness, focal weakness, syncope Psychiatric: ABSENT: anxiety, depression, homidical ideation, suicidal ideation Endocrine: ABSENT: cold intolerance, heat intolerance, menstrual abnormalities, polydipsia, polyuria Hematologic/Lymphatic: ABSENT: easy bleeding, easy bruising, lymphadenopathy Physical Exam Vital Signs: Temp Pulse Resp BP Pulse Ox 98.5 F 100 20 140/73 H 97 11/24/17 11:17 11/24/17 11:17 11/24/17 11:17 11/24/17 11:17 11/24/17 07:50 Intake & Output 11/23/17 11/24/17 11/25/17 06:59 06:59 06:59 Intake Total 672 Output Total 200 Balance 472 Weight 88.6 kg General appearance: PRESENT: no acute distress, well-developed, well-nourished Head exam: PRESENT: atraumatic, normocephalic Eye exam: PRESENT: conjunctiva pink, EOMI, PERRLA Ear exam: PRESENT: normal external ear exam Mouth exam: PRESENT: moist, neck supple, tongue midline Neck exam: PRESENT: full ROM Respiratory exam: PRESENT: clear to auscultation andrey Cardiovascular exam: PRESENT: RRR, +S1, +S2 Vascular exam: PRESENT: normal capillary refill GI/Abdominal exam: PRESENT: normal bowel sounds, soft Rectal exam: PRESENT: deferred Neurological exam: PRESENT: alert, awake, oriented to person, oriented to place , oriented to time, oriented to situation, CN II-XII grossly intact Psychiatric exam: PRESENT: appropriate affect, normal mood Skin exam: PRESENT: dry, intact, warm Results Laboratory Results: 11/24/17 07:15 11/24/17 11:30 11/24/17 11/24/17 11/24/17 00:48 00:48 00:48 WBC RBC Hgb Hct MCV MCH MCHC RDW Plt Count Seg Neutrophils % Lymphocytes % Monocytes % Eosinophils % Basophils % Absolute Neutrophils Absolute Lymphocytes Absolute Monocytes Absolute Eosinophils Absolute Basophils Sodium Potassium Chloride Carbon Dioxide Anion Gap BUN Creatinine Est GFR ( Amer) Est GFR (Non-Af Amer) Glucose Calcium Phosphorus 2.9 Magnesium 2.2 Total Bilirubin AST ALT Alkaline Phosphatase Ammonia < 8.7 L Total Protein Albumin Triglycerides Cholesterol LDL Cholesterol Direct VLDL Cholesterol HDL Cholesterol Amylase 96 Lipase 109.0 TSH 1.82 Free T4 1.95 Urine Color Urine Appearance Urine pH Ur Specific [place] Urine Protein Urine Glucose (UA) Urine Ketones Urine Blood Urine Nitrite Ur Leukocyte Esterase Urine WBC (Auto) Urine RBC (Auto) 11/24/17 11/24/17 11/24/17 00:48 03:40 04:50 WBC RBC Hgb Hct MCV MCH MCHC RDW Plt Count Seg Neutrophils % Lymphocytes % Monocytes % Eosinophils % Basophils % Absolute Neutrophils Absolute Lymphocytes Absolute Monocytes Absolute Eosinophils Absolute Basophils Sodium 134.1 L Potassium 2.8 L* Chloride 95 L Carbon Dioxide 32 H Anion Gap 7 BUN 15 Creatinine 0.64 Est GFR ( Amer) > 60 Est GFR (Non-Af Amer) > 60 Glucose 116 H Calcium 8.6 Phosphorus Magnesium Total Bilirubin 0.5 AST 28 ALT 36 Alkaline Phosphatase 71 Ammonia Total Protein Cancelled 5.7 L Albumin Cancelled 3.3 L Triglycerides 394 H Cholesterol 114.34 LDL Cholesterol Direct 38 VLDL Cholesterol 78.8 H HDL Cholesterol 21 L Amylase Lipase TSH Free T4 Urine Color YELLOW Urine Appearance SLIGHTLY-CLOUDY Urine pH 6.0 Ur Specific [place] 1.016 Urine Protein 30 H Urine Glucose (UA) NEGATIVE Urine Ketones NEGATIVE Urine Blood LARGE H Urine Nitrite NEGATIVE Ur Leukocyte Esterase NEGATIVE Urine WBC (Auto) 4 Urine RBC (Auto) 111 11/24/17 11/24/17 11/24/17 04:50 07:15 11:30 WBC Cancelled 8.0 RBC Cancelled 5.03 Hgb Cancelled 11.9 L Hct Cancelled 36.5 MCV Cancelled 73 L MCH Cancelled 23.7 L MCHC Cancelled 32.7 RDW Cancelled 19.1 H Plt Count Cancelled 141 L Seg Neutrophils % Cancelled 66.0 Lymphocytes % Cancelled 20.2 Monocytes % Cancelled 11.3 Eosinophils % Cancelled 1.7 Basophils % Cancelled 0.8 Absolute Neutrophils Cancelled 5.3 Absolute Lymphocytes Cancelled 1.6 Absolute Monocytes Cancelled 0.9 Absolute Eosinophils Cancelled 0.1 Absolute Basophils Cancelled 0.1 Sodium 136.2 L Potassium 3.4 L Chloride 97 L Carbon Dioxide 29 Anion Gap 10 BUN 13 Creatinine 0.63 Est GFR ( Amer) > 60 Est GFR (Non-Af Amer) > 60 Glucose 88 Calcium 9.0 Phosphorus Magnesium Total Bilirubin 0.4 AST 31 ALT 41 Alkaline Phosphatase 79 Ammonia Total Protein 6.1 L Albumin 3.6 Triglycerides Cholesterol LDL Cholesterol Direct VLDL Cholesterol HDL Cholesterol Amylase Lipase TSH Free T4 Urine Color Urine Appearance Urine pH Ur Specific [place] Urine Protein Urine Glucose (UA) Urine Ketones Urine Blood Urine Nitrite Ur Leukocyte Esterase Urine WBC (Auto) Urine RBC (Auto) 11/24/17 11/24/17 11/24/17 00:48 00:48 00:48 Creatine Kinase 75 CK-MB (CK-2) < 0.22 Troponin I 0.035 NT-Pro-B Natriuret Pep 25 11/24/17 11/24/17 11/24/17 04:50 04:50 11:30 Creatine Kinase 80 82 CK-MB (CK-2) < 0.22 Troponin I 0.033 NT-Pro-B Natriuret Pep 11/24/17 11:30 Creatine Kinase CK-MB (CK-2) < 0.22 Troponin I 0.022 NT-Pro-B Natriuret Pep Impressions: Chest X-Ray 11/23/17 11:40 IMPRESSION: NO ACUTE DISEASE. Head CT 11/23/17 11:40 IMPRESSION: No acute intracranial hemorrhage or acute territorial infarct. EVIDENCE OF ACUTE STROKE: NO. Head MRI 11/24/17 00:00 IMPRESSION: 1. Suspect very mild small vessel vasculopathy. 2. Mild sinus disease. This may include a component of acute disease given fluid in the sphenoid sinus. 3. No recent CVA. No enhancing lesions. EVIDENCE OF ACUTE STROKE: NO. Assessment & Plan - Diagnosis (1) Encephalopathy Is this a current diagnosis for this admission?: Yes Plan: The etiology of the encephalopathy is not clear he does not seems to be infectious, there is no fever, there is no neck rigidity to suggest meningoencephalitis MRI of the brain is not diagnostic of any specific pathology that explain the symptoms she is manifesting. She may need to have CT-guided lumbar puncture in the morning to rule out other etiologies that is not presently apparent (2) Systemic lupus erythematosus Qualifiers: Systemic lupus erythematosus type: other Systemic lupus erythematosus organ involvement: unspecified Qualified Code(s): M32.8 - Other forms of systemic lupus erythematosus Is this a current diagnosis for this admission?: Yes Plan: There is no evidence presently of active lupus (3) Hypokalemia Is this a current diagnosis for this admission?: Yes (4) Urinary tract infection Qualifiers: Urinary tract infection type: site unspecified Hematuria presence: without hematuria Qualified Code(s): N39.0 - Urinary tract infection, site not specified Is this a current diagnosis for this admission?: Yes Plan: Treated with antibiotic
[2017-11-24] MEDS: HYDROXYCHLOROQUINE SULFATE 200 MG TABLET PO SCH (18:03)
[2017-11-24 19:44] LABS: URINE AMPHETAMINES SCREEN NEGATIVE; URINE BARBITURATES SCREEN NEGATIVE; URINE BENZODIAZEPINES SCREEN NEGATIVE; URINE COCAINE SCREEN NEGATIVE; URINE MARIJUANA (THC) SCREEN NEGATIVE; URINE METHADONE SCREEN NEGATIVE; URINE PHENCYCLIDINE SCREEN NEGATIVE
[2017-11-24 20:06] LABS: INTERNATIONAL RATION (INR) 1.02; PROTHROMBIN TIME 14.1 SEC (11.4-15.4)
[2017-11-24] MEDS ORDERED: IBUPROFEN 800 MG TABLET PO PRN (20:07)
[2017-11-24] MEDS: ALPRAZOLAM 0.5 MG TABLET PO SCH (21:38)
[2017-11-24] MEDS ORDERED: LEVOFLOXACIN 750 MG/D5W RTU 750 MG/150 ML RTUPB IV SCH (22:00)
[2017-11-25] MEDS: PREGABALIN 75 MG CAPSULE PO SCH ×3 (05:13→21:23)
[2017-11-25] MEDS: LANSOPRAZOLE 30 MG TAB.RAP.DR PO SCH (05:14)
[2017-11-25 06:48] LABS: ABSOLUTE EOSINOPHILS # (AUTO) 0.1 10^3/uL (0.0-0.6); ABSOLUTE MONOCYTES (AUTO) 0.7 10^3/uL (0.1-1.4); ABSOLUTE NEUT (AUTO) 3.8 10^3/uL (1.7-8.2); BASOPHILS % (AUTO) 0.3 % (0-2); EOSINOPHILS % (AUTO) 2.1 % (0-6); HEMATOCRIT 34.1 % (36.0-47.0); HEMOGLOBIN 11.2 g/dL (12.0-15.5); LYMPHOCYTES % (AUTO) 30.4 % (13-45); MEAN CORPUSCULAR HGB CONC 32.7 g/dL (32.0-36.0); MEAN CORPUSCULAR VOLUME 73 fl (80-97); MONOCYTES % (AUTO) 9.8 % (3-13); PLATELET COUNT 168 10^3/uL (150-450); RED BLOOD COUNT 4.65 10^6/uL (3.72-5.28); RED CELL DISTRIBUTION WIDTH 19.2 % (11.5-14.0); SEGMENTED NEUTROPHILS % (AUTO) 57.4 % (42-78); TOTAL CELLS COUNTED % (AUTO) 100 %; WHITE BLOOD COUNT 6.7 10^3/uL (4.0-10.5)
[2017-11-25 07:10] LABS: ALANINE AMINOTRANSFERASE 26 U/L (9-52); ALBUMIN 3.6 g/dL (3.5-5.0); ALKALINE PHOSPHATASE 70 U/L (38-126); ANION GAP 9 (5-19); ASPARTATE AMINO TRANSFERASE 26 U/L (14-36); BILIRUBIN,DIRECT 0.3 mg/dL (0.0-0.4); BILIRUBIN,TOTAL 0.3 mg/dL (0.2-1.3); BLOOD UREA NITROGEN 7 mg/dL (7-20); CALCIUM 8.8 mg/dL (8.4-10.2); CARBON DIOXIDE 29 mmol/L (22-30); CHLORIDE 102 mmol/L (98-107); GLUCOSE 82 mg/dL (75-110); POTASSIUM 3.6 mmol/L (3.6-5.0); SODIUM 139.9 mmol/L (137-145); TOTAL PROTEIN 6.1 g/dL (6.3-8.2)
[2017-11-25] MEDS: LISINOPRIL 5 MG TABLET PO SCH (10:02)
[2017-11-25] MEDS: ALPRAZOLAM 0.5 MG TABLET PO SCH ×2 (10:02→21:23)
[2017-11-25] MEDS: ENOXAPARIN SODIUM INJ 40 MG/0.4 ML DISP.SYRIN SUBCUT SCH (10:03)
[2017-11-25 12:01] LABS: APPEARANCE ALL TUBES CLEAR; COLOR ALL TUBES COLORLESS; CSF TUBE NUMBER 3; RED BLOOD CELL,CSF 0 /uL (0-10); WHITE BLOOD CELL,CSF 2 /uL (0-5)
[2017-11-25 12:22] LABS: H. INFLUENZAE TYPE B AG NEGATIVE (NEGATIVE); S. PNEUMONIAE AG NEGATIVE (NEGATIVE); STREP. GROUP B AG NEGATIVE (NEGATIVE)
[2017-11-25] MEDS: HYDROXYCHLOROQUINE SULFATE 200 MG TABLET PO SCH ×2 (13:07→17:13)
--- NOTE | 2017-11-25 13:20 | RADIOLOGY REPORT (SQ) ---
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 FLUOROSCOPY TIME: 31 seconds 1 images saved to PACS. TECHNIQUE: Fluoroscopic guided lumbar puncture with opening and closing pressures. LIMITATIONS: None. PROCEDURE: After written consent and assessment were obtained, the patient was brought into the fluo roscopy room and placed prone on the table. The patient's lower back was prepped in a sterile fashio n and an entry site was selected under live fluoroscopic guidance. The entry site was anesthetized wi th 1% lidocaine. A 22 gauge needle was advanced through the skin and into the thecal sac at the level of L3-L4. An opening pressure of 21 water units was obtained. After approximately 8ml of CSF was dr ained, a closing pressure of 14 water units was obtained. The needle was removed and a sterile bandag e was placed of the site. Specimens were sent to the lab for testing. A fluoroscopic spot image was s aved to PACS confirming level access. FINDINGS: Clear CSF IMPRESSION: Lumbar puncture under fluoroscopy. No immediate complication. COMMENT: Patient medication list reviewed:Yes- Quality ID# [id number]:Eligible professional attests to docu menting in the medical record they obtained, updated, or reviewed the patient's current medications.. Quality ID [id number]: Final reports for procedures using fluoroscopy that document radiation exposure siomara lydia, or exposure time and number of fluorographic images (if radiation exposure indices are not avail able) TECHNICAL DOCUMENTATION: JOB ID: [id number] [employer]- All Rights Reserved
--- NOTE | 2017-11-25 21:38 | PDOC PROGRESS REPORT ---
Subjective Progress Note for:: 11/25/17 Subjective:: She had lumbar puncture done today, there is still no explanation for patient's encephalopathyI spoke to the spouse today for a very long time Reason For Visit: UTI, ENCEPHALOPATHY, HYPOKALEMIA, SLE, PROTEINURIA Physical Exam Vital Signs: Temp Pulse Resp BP Pulse Ox 97.8 F 99 16 109/68 100 11/25/17 16:00 11/25/17 16:00 11/25/17 16:00 11/25/17 16:00 11/25/17 16:00 Intake & Output 11/24/17 11/25/17 11/26/17 06:59 06:59 06:59 Intake Total 859 952 4971 Output Total 200 400 Balance 346 457 8595 Weight 88.6 kg 91.8 kg Results Laboratory Results: 11/25/17 06:23 11/25/17 06:23 11/24/17 11/25/17 11/25/17 04:50 06:23 06:23 WBC Cancelled 6.7 RBC Cancelled 4.65 Hgb Cancelled 11.2 L Hct Cancelled 34.1 L MCV Cancelled 73 L MCH Cancelled 24.0 L MCHC Cancelled 32.7 RDW Cancelled 19.2 H Plt Count Cancelled 168 Seg Neutrophils % Cancelled 57.4 Lymphocytes % Cancelled 30.4 Monocytes % Cancelled 9.8 Eosinophils % Cancelled 2.1 Basophils % Cancelled 0.3 Absolute Neutrophils Cancelled 3.8 Absolute Lymphocytes Cancelled 2.0 Absolute Monocytes Cancelled 0.7 Absolute Eosinophils Cancelled 0.1 Absolute Basophils Cancelled 0.0 Sodium 139.9 Potassium 3.6 Chloride 102 Carbon Dioxide 29 Anion Gap 9 BUN 7 Creatinine 0.63 Est GFR ( Amer) > 60 Est GFR (Non-Af Amer) > 60 Glucose 82 Calcium 8.8 Total Bilirubin 0.3 AST 26 ALT 26 Alkaline Phosphatase 70 Total Protein 6.1 L Albumin 3.6 Fluid Tube Number CSF Volume CSF Appearance CSF Color CSF WBC CSF RBC CSF Comment CSF Total Protein 11/25/17 11/25/17 11/25/17 11:02 11:02 11:02 WBC RBC Hgb Hct MCV MCH MCHC RDW Plt Count Seg Neutrophils % Lymphocytes % Monocytes % Eosinophils % Basophils % Absolute Neutrophils Absolute Lymphocytes Absolute Monocytes Absolute Eosinophils Absolute Basophils Sodium Potassium Chloride Carbon Dioxide Anion Gap BUN Creatinine Est GFR ( Amer) Est GFR (Non-Af Amer) Glucose Calcium Total Bilirubin AST ALT Alkaline Phosphatase Total Protein Albumin Fluid Tube Number 3 CSF Volume 8.0 CSF Appearance CLEAR CSF Color COLORLESS CSF WBC 2 CSF RBC 0 CSF Comment CSF CULTURE ORDERED CSF Total Protein 53 11/24/17 11/24/17 11/24/17 00:48 00:48 00:48 Creatine Kinase 75 CK-MB (CK-2) < 0.22 Troponin I 0.035 NT-Pro-B Natriuret Pep 25 11/24/17 11/24/17 11/24/17 04:50 04:50 11:30 Creatine Kinase 80 82 CK-MB (CK-2) < 0.22 Troponin I 0.033 NT-Pro-B Natriuret Pep 11/24/17 11:30 Creatine Kinase CK-MB (CK-2) < 0.22 Troponin I 0.022 NT-Pro-B Natriuret Pep Impressions: Chest X-Ray 11/23/17 11:40 IMPRESSION: NO ACUTE DISEASE. Head CT 11/23/17 11:40 IMPRESSION: No acute intracranial hemorrhage or acute territorial infarct. EVIDENCE OF ACUTE STROKE: NO. Head MRI 11/24/17 00:00 IMPRESSION: 1. Suspect very mild small vessel vasculopathy. 2. Mild sinus disease. This may include a component of acute disease given fluid in the sphenoid sinus. 3. No recent CVA. No enhancing lesions. EVIDENCE OF ACUTE STROKE: NO. Guidance Fluoroscopy 11/25/17 00:00 IMPRESSION: Lumbar puncture under fluoroscopy. No immediate complication. Lumbar Puncture 11/25/17 08:00 IMPRESSION: Lumbar puncture under fluoroscopy. No immediate complication. Assessment & Plan - Diagnosis (1) Encephalopathy Is this a current diagnosis for this admission?: Yes (2) Systemic lupus erythematosus Qualifiers: Systemic lupus erythematosus type: other Systemic lupus erythematosus organ involvement: unspecified Qualified Code(s): M32.8 - Other forms of systemic lupus erythematosus Is this a current diagnosis for this admission?: Yes (3) Hypokalemia Is this a current diagnosis for this admission?: Yes (4) Urinary tract infection Qualifiers: Urinary tract infection type: site unspecified Hematuria presence: without hematuria Qualified Code(s): N39.0 - Urinary tract infection, site not specified Is this a current diagnosis for this admission?: Yes
[2017-11-25] MEDS ORDERED: LEVOFLOXACIN 750 MG TABLET PO SCH (22:00)
[2017-11-26 05:42] LABS: ABSOLUTE EOSINOPHILS # (AUTO) 0.1 10^3/uL (0.0-0.6); ABSOLUTE LYMPHOCYTES (AUTO) 3.4 10^3/uL (0.5-4.7); ABSOLUTE NEUT (AUTO) 5.1 10^3/uL (1.7-8.2); BASOPHILS % (AUTO) 0.3 % (0-2); EOSINOPHILS % (AUTO) 1.5 % (0-6); HEMATOCRIT 32.4 % (36.0-47.0); HEMOGLOBIN 10.6 g/dL (12.0-15.5); LYMPHOCYTES % (AUTO) 35.3 % (13-45); MEAN CORPUSCULAR HEMOGLOBIN 24.1 pg (27.0-33.4); MEAN CORPUSCULAR HGB CONC 32.7 g/dL (32.0-36.0); MEAN CORPUSCULAR VOLUME 74 fl (80-97); MONOCYTES % (AUTO) 10.3 % (3-13); PLATELET COUNT 198 10^3/uL (150-450); RED BLOOD COUNT 4.39 10^6/uL (3.72-5.28); RED CELL DISTRIBUTION WIDTH 19.7 % (11.5-14.0); SEGMENTED NEUTROPHILS % (AUTO) 52.6 % (42-78); TOTAL CELLS COUNTED % (AUTO) 100 %; WHITE BLOOD COUNT 9.7 10^3/uL (4.0-10.5)
[2017-11-26 06:08] LABS: ALANINE AMINOTRANSFERASE 32 U/L (9-52); ALBUMIN 3.5 g/dL (3.5-5.0); ALKALINE PHOSPHATASE 64 U/L (38-126); ANION GAP 9 (5-19); ASPARTATE AMINO TRANSFERASE 23 U/L (14-36); BILIRUBIN,DIRECT 0.2 mg/dL (0.0-0.4); BILIRUBIN,TOTAL 0.2 mg/dL (0.2-1.3); BLOOD UREA NITROGEN 6 mg/dL (7-20); CALCIUM 9.1 mg/dL (8.4-10.2); CARBON DIOXIDE 28 mmol/L (22-30); CHLORIDE 103 mmol/L (98-107); GLUCOSE 87 mg/dL (75-110); SODIUM 139.9 mmol/L (137-145); TOTAL PROTEIN 5.9 g/dL (6.3-8.2)
[2017-11-26] MEDS: LANSOPRAZOLE 30 MG TAB.RAP.DR PO SCH (06:16)
[2017-11-26] MEDS: PREGABALIN 75 MG CAPSULE PO SCH ×2 (06:16→18:12)
[2017-11-26] MEDS: ALPRAZOLAM 0.5 MG TABLET PO SCH (09:49)
[2017-11-26] MEDS: HYDROXYCHLOROQUINE SULFATE 200 MG TABLET PO SCH ×2 (09:49→18:12)
[2017-11-26] MEDS: LISINOPRIL 5 MG TABLET PO SCH (09:49)
[2017-11-26] MEDS: ENOXAPARIN SODIUM INJ 40 MG/0.4 ML DISP.SYRIN SUBCUT SCH (09:51)
[2017-11-26 14:40] LABS: ALBUMIN 3 2.9 g/dL (2.9-4.4); ALPHA-1-GLOBULIN 0.3 g/dL (0.0-0.4); BETA GLOBULIN 0.9 g/dL (0.7-1.3); GAMMA GLOBULINS 0.7 g/dL (0.4-1.8); IMMUNOGLOBULIN A 151 mg/dL (87-352); IMMUNOGLOBULIN G 749 mg/dL (700-1600); MONOCLONAL-SPIKE Not Observed g/dL (Not Observed); PROTEIN TOTAL SERUM 5.9 g/dL (6.0-8.5)
[2017-11-26 14:50] LABS: IMMUNOGLOBULIN M 18 mg/dL (26-217)
[2017-11-26 16:39] LABS: ALBUMIN UR 41.2 % (.); ALPHA-1-GLOBULIN URINE 3.3 % (.); ALPHA-2-GLOBULIN URINE 12.3 % (.); GAMMA GLOBULIN URINE 8.7 % (.); M-SPIKE % UR Not Observed % (Not Observed); PROTEIN TOTAL URINE 27.5 mg/dL (Not Estab.)
[2017-11-26 18:37] LABS: HSV I DNA Negative (Negative)
--- NOTE | 2017-11-26 20:17 | PDOC DISCHARGE SUMMARY ---
General - Admit/Disc Date/PCP Admission Date/Primary Care Provider: 11/23/17 17:59 EVANGELIST GOODE MD Discharge Date: 11/26/17 - Discharge Diagnosis (1) Encephalopathy Is this a current diagnosis for this admission?: Yes (2) Systemic lupus erythematosus Is this a current diagnosis for this admission?: Yes (3) Hypokalemia Is this a current diagnosis for this admission?: Yes (4) Urinary tract infection Is this a current diagnosis for this admission?: Yes - Additional Information Home Medications: RX: Alprazolam [Xanax 0.5 mg Tablet] 0.5 mg PO BID 11/24/17 RX: Cyclobenzaprine HCl [Flexeril 10 mg Tablet] 10 mg PO TIDP PRN 11/24/17 RX: Hydroxychloroquine Sulfate [Plaquenil 200 mg Tablet] 200 mg PO BID 11/24/17 RX: Ibuprofen [Motrin 800 mg Tablet] 800 mg PO Q8H PRN 11/24/17 RX: Lisinopril [Prinivil 5 mg Tablet] 5 mg PO DAILY 11/24/17 RX: Omeprazole 40 mg PO DAILY 11/24/17 RX: Pregabalin [Lyrica 75 mg Capsule] 75 mg PO Q8 11/24/17 History of Present Illness History of Present Illness: VIPIN DUNN is a 46 year old female, she was brought to the emergency room for evaluation of excessive somnolence for the last 3 days, patient spouse brought patient to the emergency room for evaluation, he works from 7 AM to 3 PM and the history was that whenever he has been home, outside his workplace , all patient does is sleep . She stated that she does not remember what happened in the last 3 days, she denies any history of feeling sick prior to the last 3 days when she became excessive stuporous. In the emergency room she was evaluated CT head was done it was negative for any acute pathology, the urinalysis suggests urinary tract infection also found was severe hypokalemia. She has a history of systemic lupus erythematosus, on maintenance therapy with Plaquenil. There is no apparent metabolic explanation for the encephalopathic symptoms, the liver function test was normal, the electrolytes other than the potassium was normal. She has no history of seizure that she know of, MRI brain was done today, it showed a few I signal intensity lesions scattered throughout the white matter on FLAIR imaging likely representing chronic microvascular ischemic change. Sulci and gyri are normal in size and contour, no evidence of hemorrhage, mass or extra is a fluid collection no enhancing lesions no evidence of acute infarction there is mild mucosal thickening of the paranasal sinuses Hospital Course Hospital Course: She was admitted for the management of unspecified encephalopathy, lumbar puncture was done and also MRI blood came back negative EEG was ordered but patient could not have this done because of hairstyle. She was empirically treated with IV antibiotic for UTI though no specific pathogen was culture from the urine. She remains stable throughout hospital stay there was no evidence of confusion or excessive somnolence Physical Exam Vital Signs: Temp Pulse Resp BP Pulse Ox 98.4 F 105 H 18 124/77 99 11/26/17 19:34 11/26/17 19:34 11/26/17 19:34 11/26/17 19:34 11/26/17 19:34 Intake & Output 11/25/17 11/26/17 11/27/17 06:59 06:59 06:59 Intake Total 600 2280 1000 Output Total 400 Balance 200 2280 1000 Weight 91.8 kg 93.8 kg General appearance: PRESENT: no acute distress, well-developed, well-nourished Head exam: PRESENT: atraumatic, normocephalic Eye exam: PRESENT: conjunctiva pink, EOMI, PERRLA Ear exam: PRESENT: normal external ear exam Mouth exam: PRESENT: moist, tongue midline Neck exam: PRESENT: full ROM Respiratory exam: PRESENT: clear to auscultation andrey Cardiovascular exam: PRESENT: RRR, +S1, +S2 Pulses: PRESENT: normal dorsalis pedis pul, +2 pedal pulses bilateral Vascular exam: PRESENT: normal capillary refill GI/Abdominal exam: PRESENT: soft Rectal exam: PRESENT: deferred Neurological exam: PRESENT: alert, awake, oriented to person, oriented to place , oriented to time, oriented to situation, CN II-XII grossly intact Psychiatric exam: PRESENT: appropriate affect, normal mood Skin exam: PRESENT: dry, intact, warm Results Laboratory Results: 11/26/17 05:13 11/26/17 05:13 11/24/17 11/26/17 11/26/17 00:48 05:13 05:13 WBC 9.7 RBC 4.39 Hgb 10.6 L Hct 32.4 L MCV 74 L MCH 24.1 L MCHC 32.7 RDW 19.7 H Plt Count 198 Seg Neutrophils % 52.6 Lymphocytes % 35.3 Monocytes % 10.3 Eosinophils % 1.5 Basophils % 0.3 Absolute Neutrophils 5.1 Absolute Lymphocytes 3.4 Absolute Monocytes 1.0 Absolute Eosinophils 0.1 Absolute Basophils 0.0 Sodium 139.9 Potassium 4.0 Chloride 103 Carbon Dioxide 28 Anion Gap 9 BUN 6 L Creatinine 0.72 Est GFR ( Amer) > 60 Est GFR (Non-Af Amer) > 60 Glucose 87 Calcium 9.1 Total Bilirubin 0.2 AST 23 ALT 32 Alkaline Phosphatase 64 Total Protein 5.9 L 5.9 L Albumin 2.9 3.5 11/24/17 11/24/17 11/24/17 00:48 00:48 00:48 Creatine Kinase 75 CK-MB (CK-2) < 0.22 Troponin I 0.035 NT-Pro-B Natriuret Pep 25 11/24/17 11/24/17 11/24/17 04:50 04:50 11:30 Creatine Kinase 80 82 CK-MB (CK-2) < 0.22 Troponin I 0.033 NT-Pro-B Natriuret Pep 11/24/17 11:30 Creatine Kinase CK-MB (CK-2) < 0.22 Troponin I 0.022 NT-Pro-B Natriuret Pep Impressions: Chest X-Ray 11/23/17 11:40 IMPRESSION: NO ACUTE DISEASE. Head CT 11/23/17 11:40 IMPRESSION: No acute intracranial hemorrhage or acute territorial infarct. EVIDENCE OF ACUTE STROKE: NO. Head MRI 11/24/17 00:00 IMPRESSION: 1. Suspect very mild small vessel vasculopathy. 2. Mild sinus disease. This may include a component of acute disease given fluid in the sphenoid sinus. 3. No recent CVA. No enhancing lesions. EVIDENCE OF ACUTE STROKE: NO. Guidance Fluoroscopy 11/25/17 00:00 IMPRESSION: Lumbar puncture under fluoroscopy. No immediate complication. Lumbar Puncture 11/25/17 08:00
[2017-11-26 21:27] VITALS: BP 124/77
[2017-11-27 07:16] LABS: HSV II DNA Negative (Negative)
[2017-11-27 11:40] LABS: ANTICHROMATIN AB 1.7 AI (0.0-0.9); CENTROMERE B AB <0.2 AI (0.0-0.9); JO-1 ANTIBODY (ANACOMP) <0.2 AI (0.0-0.9); RNP AB 3.8 AI (0.0-0.9); SCLERODERMA-70 ANTIBODIES <0.2 AI (0.0-0.9); SJOGREN'S ANTI-SS-B AB <0.2 AI (0.0-0.9); SJOGREN'S SS-A ANTIBODY <0.2 AI (0.0-0.9); SMITH AB ANA <0.2 AI (0.0-0.9)
[2017-11-27 13:45] LABS: DNA DOUBLE STRAND ANTIBODY ANA 23 IU/mL (0-9)
--- NOTE | 2017-11-28 08:44 | EKG REPORT ---
SEVERITY:- ABNORMAL ECG - SINUS TACHYCARDIA RIGHT ATRIAL ABNORMALITY REPOL ABNRM SUGGESTS ISCHEMIA, ANT-LAT LEADS BORDERLINE PROLONGED QT INTERVAL : Confirmed on behalf of: Moises Amezquita MD 28-Nov-2017 08:44:24
[2017-11-29 15:38] LABS: ALPHA-1-GLOBULIN 1 5.2 % (1.1-6.6); CSF ALBUMIN 61.3 % (56.8-76.4); PRE ALBUMIN 4.2 % (2.2-7.1); TOTAL PROTEIN CSF PE 44.9 mg/dL (0.0-44.0)
[2017-12-01 10:44] LABS: CSF PE GAMMA GLOBULIN 8.3 % (3.0-13.0); PROT ELEC MSPIKE Not Observed % (Not Observed)
== END 2017-11-26 21:15 | disposition home or self-care (01) | DRG 689 ==
LOC: ER 11:11 → OBSVTOIN 17:59 → EH 17:59 → 4S 11-24 01:05
PROVIDERS: ADMIT Internal Medicine; ATTEND Internal Medicine
PROC: 009U3ZX Drainage of Spinal Canal, Percutaneous Approach, Diagnostic (ICD-10-PCS; principal; 2017-11-25)
PROC: B01B1ZZ Fluoroscopy of Spinal Cord using Low Osmolar Contrast (ICD-10-PCS; 2017-11-25)
DX: N39.0 Urinary tract infection, site not specified (principal); G93.40 Encephalopathy, unspecified; M32.8 Other forms of systemic lupus erythematosus; E87.6 Hypokalemia; I10 Essential (primary) hypertension; G43.909 Migraine, unspecified, not intractable, without status migrainosus; F17.210 Nicotine dependence, cigarettes, uncomplicated; E86.0 Dehydration; M06.9 Rheumatoid arthritis, unspecified; Z90.49 Acquired absence of other specified parts of digestive tract; Z96.643 Presence of artificial hip joint, bilateral; Z79.899 Other long term (current) drug therapy; Z88.6 Allergy status to analgesic agent; Z88.0 Allergy status to penicillin; Z88.2 Allergy status to sulfonamides; Z82.49 Family history of ischemic heart disease and other diseases of the circulatory system
CPT/HCPCS: 36415; 62270; 70450; 70553; 71046; 77003; 80048; 80053; 80061; 80076; 80307; 81001; 82140; 82150; 82550; 82553; 82570; 82962; 83036; 83690; 83735; 83880; 83916; 84100; 84156; 84157; 84166; 84439; 84443; 84484; 84703; 85025; 85610; 85652; 85730; 86140; 86225; 86235; 86320; 86403; 87015; 87040; 87070; 87086; 87116; 87205; 87206; 87210; 87252; 87529; 89050; 93005; 93010; 96361; 96365; 99285; A9577; J0696; J1650; J1956; J3480; J3490; J7120; S0119

== ENCOUNTER 2018-01-12 09:45 | Inpatient (IN) | payer MEDICARE, MEDICAID ==
[2018-01-12] MEDS ORDERED: NORMAL SALINE 1000 ML 1,000 ML IV ONE ×2 (10:18→18:30)
--- NOTE | 2018-01-12 10:32 | ER Document Report ---
ED General - General Chief Complaint: General Weakness Stated Complaint: NUMBNESS IN LEGS Time Seen by Provider: 01/12/18 10:12 Mode of Arrival: Wheelchair Information source: Relative Cannot obtain history due to: Altered mental status - CONFUSED TRAVEL OUTSIDE OF THE [place] IN LAST 30 DAYS: No - HPI Onset: Yesterday - EVENING Onset/Duration: Gradual Quality of pain: Other - CAN'T DESCRIBE Associated symptoms: Productive cough, Fever, Weakness, Other - CONFUSION Exacerbated by: Denies Relieved by: Denies Similar symptoms previously: Yes - NOT RECENT Recently seen / treated by doctor: No Notes: Patient's spouse states that, prior to onset of present illness, patient was alert, functional, and was compliant with all of her prescribed medications. - Related Data Allergies/Adverse Reactions: codeine [Codeine] Allergy (Verified 01/12/18 09:46) Penicillins Allergy (Verified 01/12/18 09:46) Sulfa (Sulfonamide Antibiotics) Allergy (Verified 01/12/18 09:46) Past Medical History - General Information source: Relative - Social History Smoking Status: Unknown if Ever Smoked Frequency of alcohol use: None Drug Abuse: None Lives with: Spouse/Significant other Family History: None, Reviewed & Not Pertinent, Hypertension Patient has suicidal ideation: No Patient has homicidal ideation: No - Past Medical History Cardiac Medical History: Reports: Hx Hypertension - stopped meds 2 years ago Denies: Hx Coronary Artery Disease Pulmonary Medical History: Reports: Hx Pneumonia Neurological Medical History: Reports: Hx Migraine Endocrine Medical History: Denies: Hx Diabetes Mellitus Type 1, Hx Diabetes Mellitus Type 2 Renal/ Medical History: Denies: Hx Peritoneal Dialysis Musculoskeltal Medical History: Reports Hx Arthritis - Rheumatoid, Reports Other - LUPUS Skin Medical History: Reports Other - LUPOID RASH Psychiatric Medical History: Reports: None Denies: Hx Depression Past Surgical History: Reports: Hx Cholecystectomy, Hx Gynecologic Surgery, Hx Orthopedic Surgery - hip x3; bilateral total hip replacements., Hx Tonsillectomy - Immunizations Immunizations up to date: No Hx Diphtheria, Pertussis, Tetanus Vaccination: Yes - unknown Review of Systems - Review of Systems Constitutional: Fever, Weakness EENT: No symptoms reported Cardiovascular: No symptoms reported Respiratory: Cough Gastrointestinal: No symptoms reported Genitourinary: No symptoms reported Female Genitourinary: No symptoms reported Musculoskeletal: Joint pain - CHRONIC Skin: See HPI Neurological/Psychological: Confusion, Headaches Physical Exam - Vital signs Vitals: Temp Resp BP Pulse Ox 101.8 F H 29 H 88/55 L 87 L 01/12/18 10:20 01/12/18 10:20 01/12/18 10:20 01/12/18 10:20 Interpretation: Tachycardic, Hypoxic, Febrile. No: Tachypneic - General General appearance: Lethargic In distress: None - HEENT Head: Normocephalic Eyes: Normal Conjunctiva: Normal Ears: Normal Nasal: Normal Mouth/Lips: Normal Mucous membranes: Dry Neck: Normal, Supple - Respiratory Respiratory status: No respiratory distress Breath sounds: Rhonchi - Cardiovascular Rhythm: Regular, Tachycardia Heart sounds: Normal auscultation Murmur: No - Abdominal Inspection: Obese - Extremities General upper extremity: Normal inspection General lower extremity: Normal inspection - Neurological Neuro grossly intact: No Cognition: Confused, Other - LETHARGIC BUT AROUSES TO TOUCH - Skin Skin Temperature: Hot Skin Moisture: Dry Skin Color: Normal Skin Turgor: Elastic Skin irregularity: other - DIFFUSE LUPOID RASH Course - Vital Signs Vital signs: Temp Pulse Resp BP Pulse Ox 101.0 F H 16 130/79 H 98 01/12/18 12:31 01/12/18 12:31 01/12/18 12:31 01/12/18 12:31 - Laboratory Result Diagrams: 01/12/18 10:15 01/12/18 10:15 Laboratory results interpreted by me: 01/12/18 01/12/18 01/12/18 10:15 10:15 10:15 WBC 25.2 H MCV 77 L MCH 24.4 L MCHC 31.6 L RDW 19.7 H Monocytes % (Manual) 2 L Abs Neuts (Manual) 17.9 H Abs Lymphs (Manual) 6.8 H ESR 32 H VBG pH Potassium 3.1 L Est GFR ( Amer) 57 L Est GFR (Non-Af Amer) 47 L Lactic Acid Direct Bilirubin 0.8 H AST 40 H ALT 59 H NT-Pro-B Natriuret Pep 568 H Total Protein 5.8 L Albumin 3.4 L 01/12/18 01/12/18 10:15 10:58 WBC MCV MCH MCHC RDW Monocytes % (Manual) Abs Neuts (Manual) Abs Lymphs (Manual) ESR VBG pH 7.47 H Potassium Est GFR ( Amer) Est GFR (Non-Af Amer) Lactic Acid 4.0 H Direct Bilirubin AST ALT NT-Pro-B Natriuret Pep Total Protein Albumin - Diagnostic Test Radiology reviewed: Image reviewed, Reports reviewed - EKG Interpretation by Me EKG shows normal: Sinus rhythm, [place], Intervals, QRS Complexes. abnormal: ST-T Waves - LAT. REPOL. ABNL. Rate: Tachycardia - Consults DR. ROPER Time consulted: 11:13 Reason for consultation: 01/12/18 11:15 AGREES WITH ADMISSION TO ICU Consulted provider: will see as inpatient Critical Care Note - Critical Care Note Total time excluding time spent on procedures (mins): 60 Comments: SEVERE SEPSIS, SEPTIC SHOCK, UNSTABLE VITAL SIGNS, AGGRESSIVE INTERVENTIONS AND FREQUENT RE-EVALUATIONS NECESSARY. Discharge - Discharge Clinical Impression: Hypoxemia, Hypokalemia Sepsis Qualifiers: Sepsis type: sepsis due to unspecified organism Qualified Code(s): A41.9 - Sepsis, unspecified organism Pneumonia Qualifiers: Pneumonia type: due to unspecified organism Laterality: right Lung location: middle lobe of lung Qualified Code(s): J18.1 - Lobar pneumonia, unspecified organism Systemic lupus erythematosus Qualifiers: Systemic lupus erythematosus type: unspecified Systemic lupus erythematosus organ involvement: unspecified Qualified Code(s): M32.9 - Systemic lupus erythematosus, unspecified Condition: Serious Disposition: ADMITTED INPATIENT [facility] Unit Admitted: ICU
[2018-01-12] MEDS ORDERED: RINGERS SOLUTION,LACTATED 1,000 ML IV ONE (10:41)
[2018-01-12 10:50] LABS: HEMATOCRIT 39.5 % (36.0-47.0); HEMOGLOBIN 12.5 g/dL (12.0-15.5); MEAN CORPUSCULAR HEMOGLOBIN 24.4 pg (27.0-33.4); MEAN CORPUSCULAR HGB CONC 31.6 g/dL (32.0-36.0); MEAN CORPUSCULAR VOLUME 77 fl (80-97); PLATELET COUNT 258 10^3/uL (150-450); RED BLOOD COUNT 5.12 10^6/uL (3.72-5.28); RED CELL DISTRIBUTION WIDTH 19.7 % (11.5-14.0); WHITE BLOOD COUNT 25.2 10^3/uL (4.0-10.5)
[2018-01-12] MEDS ORDERED: LEVOFLOXACIN 750 MG/D5W RTU 750 MG/150 ML RTUPB IV ONE (10:52)
--- NOTE | 2018-01-12 11:03 | RADIOLOGY REPORT (SQ) ---
EXAM DESCRIPTION: CHEST SINGLE VIEW COMPLETED DATE/TIME: 01/12/2018 10:52 am REASON FOR STUDY: FEVER, HYPOXEMIA COMPARISON: Two-view chest 11/23/2017 EXAM PARAMETERS: NUMBER OF VIEWS: One view. TECHNIQUE: Single frontal radiographic view of the chest acquired. RADIATION DOSE: NA LIMITATIONS: None. FINDINGS: LUNGS AND PLEURA: Dense consolidation throughout the right middle lobe lateral segment wor risome for pneumonia. No left-sided pulmonary infiltrates No gross pleural effusion or pneumothorax MEDIASTINUM AND HILAR STRUCTURES: No masses. Contour normal. HEART AND VASCULAR STRUCTURES: Next cardiac silhouette size accentuated by lordotic positioning BONES: No acute findings. HARDWARE: None in the chest. OTHER: No other significant finding. IMPRESSION: Dense consolidation right middle lobe worrisome for pneumonia TECHNICAL DOCUMENTATION: JOB ID: [id number] [employer]- All Rights Reserved Reading location - IP/workstation name: [email or web address]
[2018-01-12 11:08] LABS: ALANINE AMINOTRANSFERASE 59 U/L (9-52); ALBUMIN 3.4 g/dL (3.5-5.0); ALKALINE PHOSPHATASE 67 U/L (38-126); ANION GAP 13 (5-19); ASPARTATE AMINO TRANSFERASE 40 U/L (14-36); BILIRUBIN,TOTAL 1.2 mg/dL (0.2-1.3); BLOOD UREA NITROGEN 15 mg/dL (7-20); CALCIUM 9.3 mg/dL (8.4-10.2); CARBON DIOXIDE 25 mmol/L (22-30); CHLORIDE 102 mmol/L (98-107); CREATINE KINASE 40 U/L (30-135); GLUCOSE 83 mg/dL (75-110); POTASSIUM 3.1 mmol/L (3.6-5.0); SODIUM 140.1 mmol/L (137-145); TOTAL PROTEIN 5.8 g/dL (6.3-8.2)
[2018-01-12 11:10] LABS: ABSOLUTE LYMPHOCYTES# (MANUAL) 6.8 10^3/uL (0.5-4.7); ABSOLUTE MONOCYTES # (MANUAL) 0.5 10^3/uL (0.1-1.4); ABSOLUTE NEUTROPHILS# (MANUAL) 17.9 10^3/uL (1.7-8.2); BAND NEUTROPHILS % (MANUAL) 5 % (3-5); BASOPHILS % (MANUAL) 0 % (0-2); EOSINOPHILS % (MANUAL) 0 % (0-6); LYMPHOCYTES % (MANUAL) 27 % (13-45); MONOCYTES % (MANUAL) 2 % (3-13); SEGMENTED NEUTROPHILS % (MAN) 66 % (42-78); TOTAL CELLS COUNTED 100
[2018-01-12] MEDS ORDERED: DEXTROSE 5%-WATER 250 ML with PHENYLEPHRINE HCL 40 MG IV PRN ×4 (11:11→12:17)
[2018-01-12 11:12] LABS: ANISOCYTOSIS 2+; OVALOCYTES 1+; PLATELET COMMENT ADEQUATE; POIKILOCYTOSIS SLIGHT; POLYCHROMASIA SLIGHT; TOXIC GRANULATION SLIGHT; TOXIC VACUOLATION PRESENT
[2018-01-12 11:14] LABS: BILIRUBIN,DIRECT 0.8 mg/dL (0.0-0.4)
[2018-01-12] MEDS ORDERED: NOREPINEPHRINE BITARTRATE INJ/PF 4 MG/4 ML SDV IV ONE ×4 (11:15→20:29)
[2018-01-12] MEDS ORDERED: PHENYLEPHRINE HCL INJ/PF 10 MG/1 ML SDV ONE (11:17)
[2018-01-12 11:18] LABS: VENOUS BLOOD BASE EXCESS 3.5 mmol/L; VENOUS BLOOD HCO3 27.4 mmol/L (20-32); VENOUS BLOOD PCO2 38.9 mmHg (35-63); VENOUS BLOOD PH 7.47 (7.30-7.42)
[2018-01-12 11:20] LABS: CREATINE KINASE MB 0.36 ng/mL (<4.55)
[2018-01-12 11:22] LABS: TROPONIN I 0.112 ng/mL
[2018-01-12 11:28] LABS: ERYTHROCYTE SEDIMENTATION RATE 32 mm/hr (0-20)
[2018-01-12] MEDS ORDERED: GLUCAGON,HUMAN RECOMB 1 MG INJ SUBCUT PRN (12:08)
[2018-01-12] MEDS ORDERED: DEXTROSE 40% GEL 15 GM TUBE PO PRN ×2 (12:08)
[2018-01-12] MEDS ORDERED: IPRATROPIUM/ALBUTEROL 0.5-2.5 MG/3 ML AMPUL NEB PRN (12:08)
[2018-01-12] MEDS ORDERED: GUAIFENESIN SYRP 200 MG/10 ML UDC PO PRN (12:08)
[2018-01-12] MEDS ORDERED: DEXTROSE 50%-WATER 25 GM/50 ML DISP.SYRIN IV PRN ×2 (12:08)
[2018-01-12] MEDS ORDERED: ACETAMINOPHEN 325 MG TABLET PO PRN (12:08)
[2018-01-12] MEDS ORDERED: NORMAL SALINE 1000 ML 1,000 ML IV PRN (12:08)
[2018-01-12] MEDS ORDERED: PROPOFOL 100 ML IV PRN (12:17)
[2018-01-12] MEDS ORDERED: KETAMINE HCL INJ 500 MG/10 ML VIAL ONE (12:18)
[2018-01-12] MEDS ORDERED: FENTANYL CITRATE INJ/PF 100 MCG/2 ML AMPUL ONE ×2 (12:19→19:58)
[2018-01-12] MEDS: KETAMINE HCL INJ 500 MG/10 ML VIAL IV ONE (12:22)
[2018-01-12] MEDS: SUCCINYLCHOLINE CHLORIDE INJ 200 MG/10 ML VIAL IV ONE ×2 (12:23→14:15)
[2018-01-12] MEDS ORDERED: PROPOFOL 100 ML IV ONE (12:29)
[2018-01-12] MEDS: FENTANYL CITRATE INJ/PF 100 MCG/2 ML AMPUL IV ONE (12:30)
[2018-01-12] MEDS ORDERED: ACETAMINOPHEN 100 ML IV ONE (12:30)
[2018-01-12] MEDS: PROPOFOL INJ 200 MG/20 ML VIAL IV ONE ×2 (12:37→14:15)
[2018-01-12] MEDS ORDERED: VANCOMYCIN HCL 0 MG in DEXTROSE 5%-WATER 250 ML IV NR (12:45)
[2018-01-12] MEDS ORDERED: VECURONIUM BROMIDE INJ 10 MG VIAL IV ONE (12:46)
[2018-01-12] MEDS: VECURONIUM BROMIDE INJ 10 MG VIAL IV ONE ×2 (12:46→14:15)
[2018-01-12] MEDS ORDERED: VANCOMYCIN HCL 1,000 MG in DEXTROSE 5%-WATER 250 ML IV ONE (13:00)
--- NOTE | 2018-01-12 13:01 | RADIOLOGY REPORT (SQ) ---
EXAM DESCRIPTION: CHEST SINGLE VIEW COMPLETED DATE/TIME: 01/12/2018 12:45 pm REASON FOR STUDY: POST INTUBATION, NG TUBE PLACEMENT COMPARISON: Chest films 01/12/2018, 11/23/2017, 05/13/2017 EXAM PARAMETERS: NUMBER OF VIEWS: One view. TECHNIQUE: Single frontal radiographic view of the chest acquired. RADIATION DOSE: NA LIMITATIONS: None. FINDINGS: LUNGS AND PLEURA: Furtherl opacification of the right hemithorax from airspace disease and pleural effusion compared to 1045 hours today There is now blunting of the left lateral costophrenic sulcus from airspace disease or fluid. No pneumothorax MEDIASTINUM AND HILAR STRUCTURES: No masses. Contour normal. HEART AND VASCULAR STRUCTURES: No cardiomegaly BONES: No acute findings. HARDWARE: Endotracheal tube tip III cm above the sawyer. Nasoenteric tube tip below the hemidiaphrag ms OTHER: No other significant finding. IMPRESSION: ETT, NG tube in good positioning. Increasing bilateral airspace disease/pleural fluid compared to 1045 hours today TECHNICAL DOCUMENTATION: JOB ID: [id number] [employer]- All Rights Reserved Reading location - IP/workstation name: [email or web address]
--- NOTE | 2018-01-12 13:22 | PDOC H&P ---
History of Present Illness Admission Date/PCP: 01/12/18 11:34 EVANGELIST GOODE MD Patient complains of: Generalized weakness, numbness in legs, confusion History of Present Illness: VIPIN DUNN is a 47 year old female patient of Dr Goode who was brought to the ED by spouse due to reported worsening confusion. Spouse reported onset of productive coughing yesterday and associated fever with generalized weakness. Due to worsening confusion he decided to bring spouse to the E for further evaluation. Her initial assessment in the ED revealed temperature of 101.8F, hypotension and tachycardia as while as tachypnea. Her chest X ray suggested right middle lobe consolidation and laboratory test revealed associated significant leukocytosis. She was eventually intubated due to persistent hypoxemia and inability to protect her airway. She will be admitted to ICU. Her morbidities include SLE, Rheumatoid arthritis, migraine headache. Past Medical History Cardiac Medical History: Reports: Hypertension - stopped meds 2 years ago Denies: Coronary Artery Disease Pulmonary Medical History: Reports: Pneumonia Neurological Medical History: Reports: Migraine Endocrine Medical History: Denies: Diabetes Mellitus Type 1, Diabetes Mellitus Type 2 Musculoskeltal Medical History: Reports: Arthritis - Rheumatoid, Other - LUPUS Skin Medical History: Reports: Other - LUPOID RASH Psychiatric Medical History: Reports: None Denies: Depression Past Surgical History Past Surgical History: Reports: Cholecystectomy, Orthopedic Surgery - hip x3; bilateral total hip replacements., Tonsillectomy Social History Lives with: Spouse/Significant other Smoking Status: Unknown if Ever Smoked Frequency of Alcohol Use: None Hx Recreational Drug Use: No Drugs: None Hx Prescription Drug Abuse: No Family History Family History: None, Reviewed & Not Pertinent, Hypertension Parental Family History Reviewed: Yes Children Family History Reviewed: Yes Sibling(s) Family History Reviewed.: Yes Medication/Allergy Home Medications: Alprazolam [Xanax 0.25 mg Tablet] 0.125 mg PO Q12 01/12/18 Baclofen [Baclofen 10 mg Tablet] 10 mg PO TID 01/12/18 Furosemide [Lasix 40 mg Tablet] 40 mg PO DAILY 01/12/18 Hydroxychloroquine Sulfate [Plaquenil 200 mg Tablet] 200 mg PO DAILY 01/12/18 Ibuprofen [Motrin 800 mg Tablet] 800 mg PO Q8HP PRN 01/12/18 Omeprazole 40 mg PO DAILY 01/12/18 Potassium Chloride [Klor-Con M20] 40 meq PO DAILY 01/12/18 Pregabalin [Lyrica 75 mg Capsule] 75 mg PO Q8 01/12/18 Allergies/Adverse Reactions: codeine [Codeine] Allergy (Verified 01/12/18 09:46) Penicillins Allergy (Verified 01/12/18 09:46) Sulfa (Sulfonamide Antibiotics) Allergy (Verified 01/12/18 09:46) Review of Systems ROS unobtainable: Due to endotracheal tube Physical Exam Vital Signs: Temp Pulse Resp BP Pulse Ox 101.0 F H 16 130/79 H 98 01/12/18 12:31 01/12/18 12:31 01/12/18 12:31 01/12/18 12:31 Physical Exam: Intubated and vent supported, ET and NG tubes in situ. Head exam: PRESENT: atraumatic, normocephalic Eye exam: PRESENT: conjunctiva pink, PERRLA. ABSENT: scleral icterus Ear exam: PRESENT: normal external ear exam Mouth exam: PRESENT: moist Neck exam: PRESENT: full ROM. ABSENT: carotid bruit, JVD, lymphadenopathy, thyromegaly Respiratory exam: PRESENT: clear to auscultation andrey, decreased breath sounds - Right lower zone Cardiovascular exam: PRESENT: tachycardia. ABSENT: diastolic murmur, rubs, systolic murmur Pulses: PRESENT: normal dorsalis pedis pul, +2 pedal pulses bilateral Vascular exam: PRESENT: normal capillary refill. ABSENT: pallor GI/Abdominal exam: PRESENT: normal bowel sounds, soft. ABSENT: distended, guarding, mass, organolmegaly, rebound, tenderness Rectal exam: PRESENT: deferred Extremities exam: ABSENT: pedal edema Musculoskeletal exam: PRESENT: normal inspection Neurological exam: PRESENT: altered - and sedated on propofol Psychiatric exam: PRESENT: other - limited due to confusion and sedation protocol Skin exam: PRESENT: dry, intact, warm. ABSENT: cyanosis, rash Results Laboratory Results: I reviewed her lab results on jaeyos and form significant part of my clinical decision making. Impressions: Chest X-Ray 01/12/18 10:22 IMPRESSION: Dense consolidation right middle lobe worrisome for pneumonia Assessment & Plan - Diagnosis (1) Lobar pneumonia, unspecified organism Is this a current diagnosis for this admission?: Yes Plan: See covering attending physician orders. (2) SIRS due to infectious process with organ dysfunction Is this a current diagnosis for this admission?: Yes Plan: See covering attending physician orders. (3) Acute respiratory failure with hypoxemia Is this a current diagnosis for this admission?: Yes Plan: See covering attending physician orders. (4) Toxic metabolic encephalopathy Is this a current diagnosis for this admission?: Yes Plan: See covering attending physician orders. (5) Hypokalemia Is this a current diagnosis for this admission?: Yes Plan: See covering attending physician orders. (6) Systemic lupus erythematosus Qualifiers: Systemic lupus erythematosus type: unspecified Systemic lupus erythematosus organ involvement: unspecified Qualified Code(s): M32.9 - Systemic lupus erythematosus, unspecified Is this a current diagnosis for this admission?: Yes Plan: See covering attending physician orders. - Time Time Spent: 50 to 70 Minutes Critical Time spent with patient: 15-24 minutes Medications reviewed and adjusted accordingly: Yes Anticipated discharge: Other Within: Other - Inpatient Certification Based on my medical assessment, after consideration of the patient's comorbidities, presenting symptoms, or acuity I expect that the services needed warrant INPATIENT care.: Yes I certify that my determination is in accordance with my understanding of Medicare's requirements for reasonable and necessary INPATIENT services [42 CFR 412.3e].: Yes Medical Necessity: Need Close Monitoring Due to Risk of Patient Decompensation, Need For IV Fluids, Need For Continuous Telemetry Monitoring, Need for Nebulizer Therapy and Monitoring of Response, Need for IV Antibiotics, Risk of Complication if Not Cared For in Hospital Post Hospital Care: Other - Plan Summary Plan Summary: See covering attending physician orders.
[2018-01-12] MEDS ORDERED: AZTREONAM 1 GM in DEXTROSE 5%-WATER 50 ML IV SCH (14:00)
[2018-01-12] MEDS ORDERED: AZTREONAM 1 GM in NORMAL SALINE 100 ML IV SCH (14:00)
--- NOTE | 2018-01-12 14:06 | RADIOLOGY REPORT (SQ) ---
EXAM DESCRIPTION: CHEST SINGLE VIEW COMPLETED DATE/TIME: 01/12/2018 1:09 pm REASON FOR STUDY: CL PLACEMENT COMPARISON: Chest x-ray 01/12/2018 at 12:33 hours. EXAM PARAMETERS: NUMBER OF VIEWS: One view TECHNIQUE: Single frontal radiograph of the chest on 01/12/2018 at 13:00 hours. RADIATION DOSE: N/A LIMITATIONS: The patient is rotated FINDINGS: TEMPORARY SUPPORT DEVICES:ETT in expected location. The NG tube courses along the midline , its tip is not included on this exam. Interval placement of a right IJ central line with the tip ov erlying the region of the SVC. LUNGS AND PLEURA: Persistent bilateral pleural effusions with bilateral airspace opacities, right mor e than left. No pneumothorax. MEDIASTINUM AND HILAR STRUCTURES: Stable. HEART AND VASCULAR STRUCTURES: The heart is upper normal limit in size. BONES: No acute findings. IMPRESSION: 1. No significant interval change in the bilateral pleural effusions and airspace opacit ies, right more than left. 2. No pneumothorax status post central line placement. TECHNICAL DOCUMENTATION: JOB ID: [id number] [employer]- All Rights Reserved Reading location - IP/workstation name: [email or web address]
[2018-01-12 14:18] LABS: APPEARANCE,URINE CLOUDY; ARTERIAL BLOOD BASE EXCESS -1.1 mmol/L; ARTERIAL BLOOD FIO2 100%; ARTERIAL BLOOD H2CO3 1.75 mmol/L (1.05-1.35); ARTERIAL BLOOD HCO3 26.5 mmol/L (20-26); ARTERIAL BLOOD O2 SATURATION 99.3 % (94-98); ARTERIAL BLOOD PCO2 58.3 mmHg (35-45); ARTERIAL BLOOD PH 7.28 (7.35-7.45); ARTERIAL BLOOD PO2 221.2 mmHg (80-100); ARTERIAL BLOOD TOTAL CO2 28.3 mmol/L (21-25); BILIRUBIN,URINE NEGATIVE (NEGATIVE); GLUCOSE, URINE NEGATIVE (NEGATIVE); KETONES,URINE NEGATIVE (NEGATIVE); LEUKOCYTE ESTERASE,URINE NEGATIVE (NEGATIVE); NITRITE,URINE NEGATIVE (NEGATIVE); PROTEIN,URINE >=500 mg/dL (NEGATIVE); URINE SPECIFIC GRAVITY 1.018
[2018-01-12] MEDS: POTASSI CL 20 MEQ/50 ML RIDER 20 MEQ/50 ML RTUPB IV SCH ×3 (14:18→18:00)
[2018-01-12 14:19] LABS: COLOR,URINE YELLOW
[2018-01-12 14:32] LABS: URINE AMPHETAMINES SCREEN NEGATIVE; URINE BARBITURATES SCREEN NEGATIVE; URINE BENZODIAZEPINES SCREEN NEGATIVE; URINE COCAINE SCREEN NEGATIVE; URINE MARIJUANA (THC) SCREEN NEGATIVE; URINE METHADONE SCREEN NEGATIVE; URINE PHENCYCLIDINE SCREEN NEGATIVE
[2018-01-12] MEDS ORDERED: MIDAZOLAM HCL 50 MG/100 ML RTUINJ IV ONE (15:36)
[2018-01-12] MEDS ORDERED: MIDAZOLAM HCL 50 MG/100 ML RTUINJ IV PRN (15:51)
[2018-01-12] MEDS ORDERED: SUCCINYLCHOLINE CHLORIDE INJ 200 MG/10 ML VIAL ONE (16:14)
[2018-01-12] MEDS ORDERED: HYDROCORTISONE SOD SUCCINATE INJ/PF 100 MG/2 ML SDV IV ONE (16:30)
[2018-01-12] MEDS ORDERED: NORMAL SALINE 500 ML IV ONE (16:45)
[2018-01-12 16:49] LABS: ARTERIAL BLOOD BASE EXCESS -4.9 mmol/L; ARTERIAL BLOOD H2CO3 1.35 mmol/L (1.05-1.35); ARTERIAL BLOOD HCO3 21.4 mmol/L (20-26); ARTERIAL BLOOD O2 SATURATION 96.9 % (94-98); ARTERIAL BLOOD PCO2 44.7 mmHg (35-45); ARTERIAL BLOOD PO2 98.9 mmHg (80-100); ARTERIAL BLOOD TOTAL CO2 22.8 mmol/L (21-25)
[2018-01-12 16:50] LABS: ARTERIAL BLOOD FIO2 80%
[2018-01-12] MEDS ORDERED: DEXTROSE 5%-WATER 250 ML with NOREPINEPHRINE BITARTRATE 4 MG IV PRN ×2 (17:32)
--- NOTE | 2018-01-12 18:19 | Progress Note ---
Provider Note Provider Note: Transfer attempts with [facility] was not possible due to no ICU bed and [facility] will call back for case discussion.
[2018-01-12 18:33] LABS: CREATINE KINASE MB 3.96 ng/mL (<4.55)
[2018-01-12 18:34] LABS: TROPONIN I 0.194 ng/mL
[2018-01-12 19:36] LABS: ARTERIAL BLOOD BASE EXCESS -8.1 mmol/L; ARTERIAL BLOOD FIO2 60%; ARTERIAL BLOOD H2CO3 1.02 mmol/L (1.05-1.35); ARTERIAL BLOOD O2 SATURATION 98.2 % (94-98); ARTERIAL BLOOD PCO2 33.9 mmHg (35-45); ARTERIAL BLOOD PH 7.32 (7.35-7.45); ARTERIAL BLOOD PO2 122.6 mmHg (80-100); ARTERIAL BLOOD TOTAL CO2 18.1 mmol/L (21-25)
[2018-01-12] MEDS ORDERED: FENTANYL CITRATE INJ/PF 100 MCG/2 ML AMPUL IV ONE (20:15)
--- NOTE | 2018-01-12 20:37 | PDOC TRANSFER SUMMARY ---
General Admission Date/PCP: 01/12/18 11:34 EVANGELIST GOODE MD Admission Date: 01/12/18 Transfer Date: 01/12/18 Accepting Facility: [facility] Accepting Physician: Dr Nicolas Resuscitation Status: Full Code - Transfer Diagnosis (1) Lobar pneumonia, unspecified organism Is this a current diagnosis for this admission?: Yes (2) SIRS due to infectious process with organ dysfunction Is this a current diagnosis for this admission?: Yes (3) Acute respiratory failure with hypoxemia Is this a current diagnosis for this admission?: Yes (4) Toxic metabolic encephalopathy Is this a current diagnosis for this admission?: Yes (5) Hypokalemia Is this a current diagnosis for this admission?: Yes (6) Systemic lupus erythematosus Is this a current diagnosis for this admission?: Yes - Transfer Medications Home Medications: Alprazolam [Xanax 0.25 mg Tablet] 0.125 mg PO Q12 01/12/18 Baclofen [Baclofen 10 mg Tablet] 10 mg PO TID 01/12/18 Furosemide [Lasix 40 mg Tablet] 40 mg PO DAILY 01/12/18 Hydroxychloroquine Sulfate [Plaquenil 200 mg Tablet] 200 mg PO DAILY 01/12/18 Ibuprofen [Motrin 800 mg Tablet] 800 mg PO Q8HP PRN 01/12/18 Omeprazole 40 mg PO DAILY 01/12/18 Potassium Chloride [Klor-Con M20] 40 meq PO DAILY 01/12/18 Pregabalin [Lyrica 75 mg Capsule] 75 mg PO Q8 01/12/18 Transfer Medications: Current Medications Acetaminophen (Tylenol 325 Mg Tablet) 650 mg PO Q4HP PRN PRN Reason: pain or temp greater than 101F Stop: 02/11/18 12:07 Albuterol/Ipratropium (Duoneb 3 Ml Ampul) 3 ml NEB RTQ4HP PRN PRN Reason: SHORTNESS OF BREATH Stop: 02/11/18 12:07 Dextrose (Dextrose Inj 50% Syringe (25 Gm/50 Ml)) 12.5 gm IV PRN PRN; Protocol PRN Reason: FOR BG 50-69 IN ALERT PATIENT Stop: 02/11/18 12:07 Dextrose (Dextrose Inj 50% Syringe (25 Gm/50 Ml)) 25 gm IV PRN PRN; Protocol PRN Reason: See Label Comments Stop: 02/11/18 12:07 Enoxaparin Sodium (Lovenox Inj 40 Mg/0.4 Ml Disp.Syrin) 40 mg SUBCUT DAILY [facility] Stop: 02/12/18 09:59 Glucagon (Glucagen Inj 1 Mg Vial) 1 mg SUBCUT PRN PRN; Protocol PRN Reason: Evaluate for BG < 70 Stop: 02/11/18 12:07 Glucose (Glutose 40% Gel 15 Gm Tube) 15 gm PO PRN PRN; Protocol PRN Reason: For BG 50-69 in Alert Patient Stop: 02/11/18 12:07 Glucose (Glutose 40% Gel 15 Gm Tube) 30 gm PO PRN PRN; Protocol PRN Reason: FOR BG < 50 IN ALERT PATIENT Stop: 02/11/18 12:07 Guaifenesin (Robitussin Syrup 200 Mg/10 Ml Ud Cup) 200 mg PO Q4HP PRN PRN Reason: COUGH Stop: 02/11/18 12:07 Levofloxacin/Dextrose (Levaquin Rtu 750 Mg/D5w 150 Ml Premix) 750 mg in 150 mls @ 100 mls/hr IV DAILY [facility] Stop: 01/20/18 09:59 Sodium Chloride (Nacl 0.9% 1000 Ml Iv Soln) 1,000 mls @ 125 mls/hr IV CONTINUOUS PRN PRN Reason: THIS MED IS NOT "PRN" Stop: 02/11/18 12:07 Hard Fat/Phenylephrine 40 mg/ (Dextrose) 254 mls @ 0 mls/hr IV CONTINUOUS PRN; Protocol; Titrate PRN Reason: THIS MED IS NOT "PRN" Stop: 02/11/18 12:16 Last Admin: 01/12/18 19:36 Dose: 40 mg Propofol (Diprivan Rtu 1000 Mg/100 Ml Inf.Bottle) 100 mls @ 0 mls/hr IV CONTINUOUS PRN; Titrate PRN Reason: THIS MED IS NOT "PRN" Stop: 02/11/18 12:16 Last Admin: 01/12/18 12:34 Dose: 100 ml Vancomycin HCl 1,000 mg/ (Dextrose) 250 mls @ 166.667 mls/hr IV Q12 [facility] Stop: 01/19/18 21:59 Aztreonam 1 gm/ Sodium (Chloride) 100 mls @ 200 mls/hr IV Q8 [facility] Stop: 01/19/18 13:59 Last Admin: 01/12/18 15:17 Dose: 1 gm Midazolam HCl (Versed Rtu 50 Mg/100 Ml Premix Bag) 50 mg in 100 mls @ 0 mls/hr IV CONTINUOUS PRN; Protocol; Titrate PRN Reason: THIS MED IS NOT "PRN" Stop: 01/19/18 15:50 Norepinephrine Bitartrate 4 mg (/ Dextrose) 250 mls @ 0 mls/hr IV CONTINUOUS PRN; Protocol; Titrate PRN Reason: THIS MED IS NOT "PRN" Stop: 02/11/18 17:31 Lansoprazole (Prevacid 30 Mg Odt Tablet) 30 mg PO Q6AM [facility] Stop: 02/12/18 05:59 Sodium Chloride (Saline Flush 2.5 Ml Monoject Prefil Syrin) 2.5 ml IV Q8 [facility] Stop: 02/11/18 13:59 Last Admin: 01/12/18 15:12 Dose: 2.5 ml - Allergies Allergies/Adverse Reactions: codeine [Codeine] Allergy (Verified 01/12/18 09:46) Penicillins Allergy (Verified 01/12/18 09:46) Sulfa (Sulfonamide Antibiotics) Allergy (Verified 01/12/18 09:46) - Diet/Activity Discharge Diet: Other (Comments) - NNPO pressently Hospital Course Hospital Course: She was admitted to ICU for right lobar pneumonia with SIRS and acute respiratory failure, associated lekocytosis, elevated lactic acid level and persistent hypotension. She was intubated with ventilatory and pressor support in the ICU. She received several bolus of IV Normal saline, antibiotic therapy including IV Vancomycin, Levofloxacin, and Aztreonam due to history of penicillin allergy. Despite improvement in her oxygenation, she needed IV fluid support and maximum dose of IV Hubert-Synephrine and Levophed to sustain her blood pressure. Also, she sustained tachycardia above 120/min. Her latest cardiac enzyme revealed slight increase in Troponin level that may be related to cardiac leakage from her tachycardia. I discussed her case with Dr Nicolas, cake puncher at [facility], patient hs been accepted to his service for further evaluation and management. She will be transferred to [facility] when bed is available. Physical Exam Vital Signs: Temp Pulse Resp BP Pulse Ox 98.1 F 134 H 28 H 105/59 L 100 01/12/18 18:00 01/12/18 18:00 01/12/18 18:15 01/12/18 18:15 01/12/18 18:15 Intake & Output 01/11/18 01/12/18 01/13/18 06:59 06:59 06:59 Intake Total 2925 Output Total 115 Balance 2810 Weight 94.7 kg Intubated and vent supported, ET and NG tubes in situ. Head exam: PRESENT: atraumatic, normocephalic Eye exam: PRESENT: conjunctiva pink, PERRLA. ABSENT: scleral icterus Ear exam: PRESENT: normal external ear exam Mouth exam: PRESENT: moist Neck exam: PRESENT: full ROM. ABSENT: carotid bruit, JVD, lymphadenopathy, thyromegaly Respiratory exam: PRESENT: clear to auscultation andrey, decreased breath sounds - Right lower zone Cardiovascular exam: PRESENT: tachycardia. ABSENT: diastolic murmur, rubs, systolic murmur Pulses: PRESENT: normal dorsalis pedis pul, +2 pedal pulses bilateral Vascular exam: PRESENT: normal capillary refill. ABSENT: pallor GI/Abdominal exam: PRESENT: normal bowel sounds, soft. ABSENT: distended, guarding, mass, organolmegaly, rebound, tenderness Rectal exam: PRESENT: deferred Extremities exam: ABSENT: pedal edema Musculoskeletal exam: PRESENT: normal inspection Neurological exam: PRESENT: altered - and sedated on propofol Psychiatric exam: PRESENT: other - limited due to confusion and sedation protocol Skin exam: PRESENT: dry, intact, warm. ABSENT: cyanosis, rash Results Laboratory Results: 01/12/18 01/12/18 01/12/18 13:38 13:38 14:50 Carbonic Acid 1.75 H HCO3/H2CO3 Ratio 15:1 ABG pH 7.28 L ABG pCO2 58.3 H ABG pO2 221.2 H ABG HCO3 26.5 H ABG O2 Saturation 99.3 H ABG Base Excess -1.1 FiO2 100% Lactic Acid 2.8 H Urine Color YELLOW Urine Appearance CLOUDY Urine pH 5.0 Ur Specific [place] 1.018 Urine Protein >=500 H Urine Glucose (UA) NEGATIVE Urine Ketones NEGATIVE Urine Blood SMALL H Urine Nitrite NEGATIVE Ur Leukocyte Esterase NEGATIVE Urine WBC (Auto) 14 Urine RBC (Auto) 36 01/12/18 01/12/18 16:40 19:20 Carbonic Acid 1.35 1.02 L HCO3/H2CO3 Ratio 15:1 16:1 ABG pH 7.30 L 7.32 L ABG pCO2 44.7 33.9 L ABG pO2 98.9 122.6 H ABG HCO3 21.4 17.0 L ABG O2 Saturation 96.9 98.2 H ABG Base Excess -4.9 -8.1 FiO2 80% 60% Lactic Acid Urine Color Urine Appearance Urine pH Ur Specific [place] Urine Protein Urine Glucose (UA) Urine Ketones Urine Blood Urine Nitrite Ur Leukocyte Esterase Urine WBC (Auto) Urine RBC (Auto) 01/12/18 01/12/18 17:35 17:35 Creatine Kinase 123 CK-MB (CK-2) 3.96 Troponin I 0.194 Impressions: Chest X-Ray 01/12/18 10:22 IMPRESSION: Dense consolidation right middle lobe worrisome for pneumonia Plan Discharge Plan: Transfer to [facility] under care of Dr Nicolas for further evaluation and management.
[2018-01-12] MEDS ORDERED: ACETAMINOPHEN 325 MG TABLET NG PRN (20:39)
[2018-01-12 21:39] VITALS: BP 123/101
[2018-01-12] MEDS ORDERED: VANCOMYCIN HCL 1,000 MG in DEXTROSE 5%-WATER 250 ML IV SCH (22:00)
[2018-01-13] MEDS ORDERED: LANSOPRAZOLE 30 MG TAB.RAP.DR PO SCH (06:00)
[2018-01-13] MEDS ORDERED: LEVOFLOXACIN 750 MG/D5W RTU 750 MG/150 ML RTUPB IV SCH (10:00)
[2018-01-13] MEDS ORDERED: ENOXAPARIN SODIUM INJ 40 MG/0.4 ML DISP.SYRIN SUBCUT SCH (10:00)
--- NOTE | 2018-01-13 22:16 | PDOC CONSULTATION ---
Consultation Consult Date: 01/12/18 Attending physician:: SYLVESTER ROPER Consult reason:: respiratory failure History of Present Illness Admission Date/PCP: 01/12/18 11:34 EVANGELIST GOODE MD History of Present Illness: VIPIN DUNN is a 47 year old female patient presented to ED increasing confusion and elevated temp,hypotensive ;tachypnic and tachycardic CXR c/w R sided pneumonia.She was subsequently intubated. Past Medical History Cardiac Medical History: Reports: Hypertension - stopped meds 2 years ago Denies: Coronary Artery Disease Pulmonary Medical History: Reports: Pneumonia Neurological Medical History: Reports: Migraine Endocrine Medical History: Denies: Diabetes Mellitus Type 1, Diabetes Mellitus Type 2 Musculoskeltal Medical History: Reports: Arthritis - Rheumatoid, Other - LUPUS Skin Medical History: Reports: Other - LUPOID RASH Psychiatric Medical History: Reports: None, Depression Past Surgical History Past Surgical History: Reports: Cholecystectomy, Orthopedic Surgery - hip x3; bilateral total hip replacements., Tonsillectomy Social History Information Source: [facility] [place] Records Lives with: Spouse/Significant other Smoking Status: Current Every Day Smoker Cigarettes Packs Per Day: 2 Passive smoke exposure as: Both Frequency of Alcohol Use: None Hx Recreational Drug Use: No Drugs: None Hx Prescription Drug Abuse: No - Advance Directive Resuscitation Status: Full Code Family History Family History: Hypertension Parental Family History Reviewed: No Children Family History Reviewed: No Sibling(s) Family History Reviewed.: No Medication/Allergy Home Medications: Alprazolam [Xanax 0.25 mg Tablet] 0.125 mg PO Q12 01/12/18 Baclofen [Baclofen 10 mg Tablet] 10 mg PO TID 01/12/18 Furosemide [Lasix 40 mg Tablet] 40 mg PO DAILY 01/12/18 Hydroxychloroquine Sulfate [Plaquenil 200 mg Tablet] 200 mg PO DAILY 01/12/18 Ibuprofen [Motrin 800 mg Tablet] 800 mg PO Q8HP PRN 01/12/18 Omeprazole 40 mg PO DAILY 01/12/18 Potassium Chloride [Klor-Con M20] 40 meq PO DAILY 01/12/18 Pregabalin [Lyrica 75 mg Capsule] 75 mg PO Q8 01/12/18 Allergies/Adverse Reactions: codeine [Codeine] Allergy (Verified 01/12/18 09:46) Penicillins Allergy (Verified 01/12/18 09:46) Sulfa (Sulfonamide Antibiotics) Allergy (Verified 01/12/18 09:46) Review of Systems ROS unobtainable: Due to endotracheal tube Physical Exam Vital Signs: Temp Pulse Resp BP Pulse Ox 98.1 F 136 H 24 H 123/101 H 97 01/12/18 18:00 01/12/18 21:51 01/12/18 20:30 01/12/18 20:29 01/12/18 20:45 Intake & Output 01/12/18 01/13/18 01/14/18 06:59 06:59 06:59 Intake Total 3273 Output Total 265 Balance 3008 Weight 94.7 kg General appearance: PRESENT: no acute distress, disheveled, obese. ABSENT: cooperative Head exam: PRESENT: atraumatic, normocephalic Eye exam: PRESENT: conjunctiva pale. ABSENT: EOMI, nystagmus, periorbital swelling, scleral icterus Mouth exam: PRESENT: dry mucosa, neck supple, tongue midline, other - ET tube Neck exam: ABSENT: carotid bruit, JVD, lymphadenopathy, thyromegaly, tracheal deviation, tracheostomy Respiratory exam: PRESENT: crackles, decreased breath sounds, prolonged expiratory phas, rales, rhonchi, symmetrical, tachypnea, wheezes. ABSENT: retraction, stridor Cardiovascular exam: PRESENT: RRR, +S1, +S2 Pulses: PRESENT: normal radial pulses GI/Abdominal exam: PRESENT: diminished bowel sounds, soft Extremities exam: ABSENT: calf tenderness, clubbing, joint swelling Musculoskeletal exam: ABSENT: ambulatory, deformity, dislocation Neurological exam: ABSENT: alert, awake, oriented to person Skin exam: PRESENT: dry, warm Results Laboratory Results: 01/12/18 01/12/18 17:35 17:35 Creatine Kinase 123 CK-MB (CK-2) 3.96 Troponin I 0.194 Impressions: Chest X-Ray 01/12/18 10:22 IMPRESSION: Dense consolidation right middle lobe worrisome for pneumonia Assessment & Plan - Diagnosis (1) Acute respiratory failure with hypoxemia Is this a current diagnosis for this admission?: Yes Plan: pna intubated (2) Encephalopathy Is this a current diagnosis for this admission?: Yes Plan: in shock metabolic vs infectious (3) Lobar pneumonia, unspecified organism Is this a current diagnosis for this admission?: Yes (4) Systemic lupus erythematosus Qualifiers: Systemic lupus erythematosus type: unspecified Systemic lupus erythematosus organ involvement: unspecified Qualified Code(s): M32.9 - Systemic lupus erythematosus, unspecified Is this a current diagnosis for this admission?: Yes - Time Total Critical Time (Minutes): 45
--- NOTE | 2018-01-13 23:40 | EKG REPORT ---
SEVERITY:- ABNORMAL ECG - SINUS TACHYCARDIA MULTIPLE ATRIAL PREMATURE COMPLEXES INFERIOR INFARCT, AGE INDETERMINATE : Confirmed by: Fernanda East 13-Jan-2018 23:39:43
--- NOTE | 2018-01-17 22:05 | EKG REPORT ---
SEVERITY:- ABNORMAL ECG - SINUS TACHYCARDIA PROBABLE LVH WITH SECONDARY REPOL ABNRM : Confirmed by: Fernanda East 17-Jan-2018 22:05:28
== END 2018-01-12 21:03 | disposition short-term general hospital (02) | DRG 871 ==
LOC: ER 09:45 → EH 11:34 → ICU 13:30
PROVIDERS: ADMIT Internal Medicine; ATTEND Internal Medicine
PROC: 5A1935Z Respiratory Ventilation, Less than 24 Consecutive Hours (ICD-10-PCS; principal; 2018-01-12)
PROC: 3E0F73Z Introduction of Anti-inflammatory into Respiratory Tract, Via Natural or Artificial Opening (ICD-10-PCS; 2018-01-12)
PROC: 0BH17EZ Insertion of Endotracheal Airway into Trachea, Via Natural or Artificial Opening (ICD-10-PCS; 2018-01-12)
PROC: 02HV33Z Insertion of Infusion Device into Superior Vena Cava, Percutaneous Approach (ICD-10-PCS; 2018-01-12)
DX: A41.9 Sepsis, unspecified organism (principal); J18.1 Lobar pneumonia, unspecified organism; J96.01 Acute respiratory failure with hypoxia; G92 Toxic encephalopathy; M32.9 Systemic lupus erythematosus, unspecified; E87.6 Hypokalemia; F17.210 Nicotine dependence, cigarettes, uncomplicated; I10 Essential (primary) hypertension; G43.909 Migraine, unspecified, not intractable, without status migrainosus; F32.9 Major depressive disorder, single episode, unspecified; Z79.899 Other long term (current) drug therapy; Z88.6 Allergy status to analgesic agent; Z88.0 Allergy status to penicillin; Z88.2 Allergy status to sulfonamides; Z90.49 Acquired absence of other specified parts of digestive tract; Z96.643 Presence of artificial hip joint, bilateral; Z82.49 Family history of ischemic heart disease and other diseases of the circulatory system
CPT/HCPCS: 36415; 71045; 80053; 80307; 81001; 82550; 82553; 82803; 82962; 83605; 83735; 83880; 84478; 84484; 85025; 85652; 87040; 87070; 87077; 87086; 87186; 87205; 93005; 93010; 94002; 96360; 99291; J0131; J0330; J1720; J1956; J2250; J2370; J2704; J3010; J3370; J3480; J3490; J7030; J7040; J7060; J7120

== ENCOUNTER 2018-02-21 14:24 | Emergency (ER) | payer MEDICARE, MEDICAID ==
[2018-02-21] MEDS ORDERED: KETOROLAC TROMETHAMINE INJ/PF 30 MG/1 ML SDV IM ONE (14:55)
[2018-02-21] MEDS ORDERED: DEXAMETHASONE SOD PHOS INJ 10 MG/1 ML VIAL IM ONE (14:55)
--- NOTE | 2018-02-21 14:56 | ER Document Report ---
HPI - HPI Pain Level: 4 Context: Patient is a 47-year-old female presents emergency department complaining of right sciatica. 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 Patient states that she recently returned to work after hospitalization for pneumonia a month ago so she is been working a lot of [id number] shifts. She states that she denies any focal injury but has been working a lot over the past couple of days and is felt pain in her right buttock radiating down her leg. She states that she has been taking home baclofen and Mobic. She denies any urinary/stool incontinence, saddle anesthesia. Denies any fall or trauma. Past medical history significant for lupus, hypertension Primary care is with Dr. Goode - CONSTITUTIONAL Constitutional: DENIES: Fever, Chills - EENT EENT: DENIES: Sore Throat, Ear Pain, Eye problems - NEURO Neurology: DENIES: Headache, Weakness, Vision blurred, Dizzinesss / Vertigo - CARDIOVASCULAR Cardiovascular: DENIES: Chest pain - RESPIRATORY Respiratory: DENIES: Trouble Breathing, Coughing - GASTROINTESTINAL Gastrointestinal: DENIES: Abdominal Pain, Black / Bloody Stools - URINARY Urinary: DENIES: Dysuria, Urgency, Frequency - REPRODUCTIVE Reproductive: DENIES: : - MUSCULOSKELETAL Musculoskeletal: DENIES: Extremity pain Past Medical History - Social History Smoking Status: Never Smoker Chew tobacco use (# tins/day): No Frequency of alcohol use: None Drug Abuse: None Family History: Hypertension Patient has suicidal ideation: No Patient has homicidal ideation: No - Past Medical History Cardiac Medical History: Reports: Hx Hypertension - stopped meds 2 years ago Denies: Hx Coronary Artery Disease Pulmonary Medical History: Reports: Hx Pneumonia Neurological Medical History: Reports: Hx Migraine Endocrine Medical History: Denies: Hx Diabetes Mellitus Type 1, Hx Diabetes Mellitus Type 2 Renal/ Medical History: Denies: Hx Peritoneal Dialysis Musculoskeltal Medical History: Reports Hx Arthritis - Rheumatoid Psychiatric Medical History: Reports: Hx Depression Past Surgical History: Reports: Hx Cholecystectomy, Hx Gynecologic Surgery, Hx Orthopedic Surgery - hip x3; bilateral total hip replacements., Hx Tonsillectomy - Immunizations Immunizations up to date: No Hx Diphtheria, Pertussis, Tetanus Vaccination: Yes - unknown Vertical Provider Document - CONSTITUTIONAL Agree With Documented VS: Yes Notes: PHYSICAL EXAM GENERAL: Alert, interacts well. HEAD: Normocephalic, atraumatic. NECK: Full range of motion. Supple. Trachea midline. EXTREMITIES: Moves all 4 extremities spontaneously. No edema, radial and dorsalis pedis pulses 2/4 bilaterally. No cyanosis. Back: Pain reproducible palpation of the right paralumbar and right buttock musculature. No spinous process tenderness, deformities or step-offs. 5 out of 5 strength both distally and proximally bilateral lower extremities. 2+ patellar reflexes bilaterally. No clonus. Sensation grossly intact in the bilateral lower extremities. Patient is able to ambulate without difficulty. NEUROLOGICAL: Alert and oriented x4. Normal speech. PSYCH: Normal affect, normal mood. SKIN: Warm, dry, normal turgor. No rashes or lesions noted. - INFECTION CONTROL TRAVEL OUTSIDE OF THE [place] IN LAST 30 DAYS: No Course - Re-evaluation Re-evalutation: 02/21/18 15:40 Patient is a 47-year-old female presents with symptoms consistent with her acute on chronic sciatica. The patient presents without signs of spinal cord compression, cauda equina syndrome, infection, aneurysm, or other serious etiology. The patient is neurologically intact. Given the extremely low risk of these diagnoses further testing and evaluation for these possibilities does not appear to be indicated at this time. The patient has been instructed to return if the symptoms worsen or change in any way. - Vital Signs Vital signs: Temp Pulse Resp BP Pulse Ox 98.6 F 108 H 18 145/88 H 98 02/21/18 14:29 02/21/18 14:29 02/21/18 14:29 02/21/18 14:29 02/21/18 14:29 Discharge - Discharge Clinical Impression: Sciatica Qualifiers: Laterality: right Qualified Code(s): M54.31 - Sciatica, right side Condition: Good Disposition: HOME, SELF-CARE Instructions: Sciatica ([facility]) Forms: Return to Work Referrals: EVANGELIST GOODE MD [Primary Care Provider] - Follow up in 3-5 days
[2018-02-21 15:31] VITALS: BP 140/90
== END 2018-02-21 15:31 | disposition home or self-care (01) ==
LOC: ER 14:24
DX: M54.31 Sciatica, right side (principal); Z90.49 Acquired absence of other specified parts of digestive tract; Z96.643 Presence of artificial hip joint, bilateral
CPT/HCPCS: 99283; 96372; J1885; J1100

== ENCOUNTER 2018-04-15 14:29 | Emergency (ER) | payer MEDICARE, MEDICAID ==
[2018-04-15 14:37] VITALS: BP 135/80
[2018-04-15] MEDS ORDERED: ACETAMINOPHEN 325 MG TABLET PO ONE (15:20)
[2018-04-15] MEDS ORDERED: KETOROLAC TROMETHAMINE 60 MG/2 ML SDV IM ONE (15:20)
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
== END 2018-04-15 15:45 | disposition home or self-care (01) ==
LOC: ER 14:29
DX: S39.012A Strain of muscle, fascia and tendon of lower back, initial encounter (principal); M54.31 Sciatica, right side; F17.200 Nicotine dependence, unspecified, uncomplicated; V89.2XXA Person injured in unspecified motor-vehicle accident, traffic, initial encounter; Z90.49 Acquired absence of other specified parts of digestive tract; Z96.643 Presence of artificial hip joint, bilateral
CPT/HCPCS: 99283

== ENCOUNTER 2018-09-04 10:07 | Emergency (ER) | payer MEDICARE, MEDICAID ==
[2018-09-04 10:24] VITALS: BP 167/88
[2018-09-04] MEDS ORDERED: KETOROLAC TROMETHAMINE 60 MG/2 ML SDV IM ONE (11:28)
--- NOTE | 2018-09-04 11:31 | ER Document Report ---
HPI - HPI Patient complains to provider of: x 3 days Severity: Moderate Pain Level: 3 Associated Symptoms: None Exacerbated by: Denies, Walking Relieved by: Other Notes: 47-year-old female presents with acute exacerbation of chronic back pain. 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 States she sometimes does get exacerbations of her chronic back pain. Denies any trauma to back. takes meloxicam daily without full relief. Denies fevers, chills, chest pain,palpitations, shortness of breath, dyspnea, nausea, vomiting, diarrhea, abdominal pain, hematuria,blurred vision, double vision, loss of vision, speech changes, LH, dizziness, syncope, headaches, wheezing, weakness, bowel or bladder dysfunction, saddle anesthesia, numbness or tingling in bilateral upper or lower extremities equally, muscle paralysis, weakness in bilateral upper or lower extremities equally or rash. Pain is 5 out of 10, worse with moving and point pressure. States pain is on right side and radiates down leg. Reports feels same as previous exacerbation of her chronic back pain. - CONSTITUTIONAL Constitutional: DENIES: Fever, Chills - REPRODUCTIVE Reproductive: DENIES: : - MUSCULOSKELETAL Musculoskeletal: REPORTS: Extremity pain - radiation down right leg Past Medical History - General Information source: Patient - Social History Smoking Status: Current Every Day Smoker Chew tobacco use (# tins/day): No Frequency of alcohol use: None Drug Abuse: None Family History: Hypertension Patient has suicidal ideation: No Patient has homicidal ideation: No - Past Medical History Cardiac Medical History: Reports: Hx Hypertension - stopped meds 2 years ago Denies: Hx Coronary Artery Disease Pulmonary Medical History: Reports: Hx Pneumonia Neurological Medical History: Reports: Hx Migraine Endocrine Medical History: Denies: Hx Diabetes Mellitus Type 1, Hx Diabetes Mellitus Type 2 Renal/ Medical History: Denies: Hx Peritoneal Dialysis Musculoskeletal Medical History: Reports Hx Arthritis - Rheumatoid Psychiatric Medical History: Reports: Hx Depression Past Surgical History: Reports: Hx Cholecystectomy, Hx Gynecologic Surgery, Hx Orthopedic Surgery - Left hip replacement twice, 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 IN LAST 30 DAYS: No Course - Re-evaluation Re-evalutation: 09/04/18 12:10 right low back pain without any signs of spinal cord compression, cauda equina syndrome , infection, aneurysm or any other serious etiology patient is neurologically intact. Given extremely low risk of these diagnoses further testing and evaluation of these possibilities do not appear to be indicated at this time the patient has been instructed to return if the symptoms worsen or change in anyway. I have reevaluated this patient multiple times and no significant life threatening changes, no signs of toxicity, sepsis or peritonitis are noted. The patient and I have discussed the diagnosis and risks , and we agree with discharging home and close follow-up. We also discussed returning to the Emergency Department immediately if new or worsening symptoms occur with the understanding that symptoms and presentations can change. At this time will discharge with return precautions and follow-up recommendations. Verbal discharge instructions given a the bedside and opportunity for questions given. We have discussed the symptoms which are most concerning (e.g. , saddle anesthesia, urinary or bowel incontinence or retention, changing or worsening pain) that necessitate immediate return. Medication warnings reviewed. All questions and concerns answered by this provider. Patient is in agreement with this plan and has verbalized understanding of return precautions and the need for primary care follow-up in the next 24-72 hours. Patient verbalized understanding of plan of care and agree with plan of care. - Vital Signs Vital signs: Temp Pulse Resp BP Pulse Ox 98.3 F 82 18 167/88 H 100 09/04/18 10:23 09/04/18 10:23 09/04/18 10:23 09/04/18 10:23 09/04/18 10:23 PHYSICAL EXAMINATION: GENERAL: Well-appearing, well-nourished and in no acute distress. HEAD: Atraumatic, normocephalic. EYES: Pupils equal round and reactive to light, extraocular movements intact, conjunctiva are normal. ENT: Nares patent, oropharynx clear without exudates. Moist mucous membranes. NECK: Normal range of motion, supple without lymphadenopathy LUNGS: Breath sounds clear to auscultation bilaterally and equal. No wheezes rales or rhonchi. HEART: Regular rate and rhythm without murmurs ABDOMEN: Soft, nontender, nondistended abdomen. No guarding, no rebound. No masses appreciated. Female : deferred Musculoskeletal: Normal range of motion, no pitting or edema. No cyanosis.Pain with flexion and extension at 30 degrees, positive straight leg test negative. Normal hip rotation. DTR +2 in BLE equally. Strength 5 out of 5 both distally and proximally to bilateral lower extremities normal motor and sensory function in BLE equally. Distal pulses + 2 BLE equally. Noted paraspinal tenderness near L2 and L3 on right. No spinal tenderness. No CVA tenderness bilaterally. Femoral pulses + 2 bilaterally and equally. No abrasions, scars, lacerations, ecchymosis of any recent trauma. normal gait. NEUROLOGICAL: Cranial nerves grossly intact. Normal speech, normal gait. Normal sensory, motor exams PSYCH: Normal mood, normal affect. SKIN: Warm, Dry, normal turgor, no rashes or lesions noted. Discharge - Discharge Clinical Impression: Sciatica, right side Condition: Stable Disposition: HOME, SELF-CARE Instructions: Low Back Pain ([facility]), Muscle Strain ([facility]), Pain Medication Injection ([facility]), Warm Packs ([facility]) Additional Instructions: Sciatica Your symptoms suggest "sciatica." The pain of sciatica typically radiates down the leg. Numbness in the foot or calf may also occur. Sciatica is caused by irritation of the sciatic nerve or its branches. The irritation can be due to a herniated disk in the spine, swelling and inflammation in the muscles surrounding the sciatic nerve, or direct injury of the nerve itself. Most cases of sciatica will resolve with medical treatment. Bed rest is usually recommended initially. Surgery is only necessary when the condition will not improve with rest and antiinflammatory medication. Muscle relaxers are often given if muscle soreness is present. A CAT scan of the back may be performed if a herniated disk is suspected. Re-examination is necessary if you develop increasing numbness, localized weakness in the foot or ankle, or if the pain does not respond to rest. Return immediately for any new or worsening symptoms. Follow up with primary care provider, call tomorrow to make followup appointment. Prescriptions: Methocarbamol [Robaxin 500 mg Tablet] 500 mg PO QID PRN #15 tablet PRN Reason: Prednisone [Deltasone 20 mg Tablet] 3 tab PO DAILY 5 Days #15 tablet Forms: Return to Work Referrals: EVANGELIST GOODE MD [Primary Care Provider] - Follow up in 3-5 days FABIOLA SMALL MD [ACTIVE STAFF] - Follow up in 3-5 days
== END 2018-09-04 11:44 | disposition home or self-care (01) ==
LOC: ER 10:07
DX: M54.41 Lumbago with sciatica, right side (principal); G89.29 Other chronic pain; M54.9 Dorsalgia, unspecified; F17.200 Nicotine dependence, unspecified, uncomplicated; I10 Essential (primary) hypertension; Z90.49 Acquired absence of other specified parts of digestive tract; Z96.643 Presence of artificial hip joint, bilateral
CPT/HCPCS: 99283; 96372; J1885

== ENCOUNTER 2019-01-13 19:53 | Emergency (ER) | payer MEDICARE, MEDICAID ==
[2019-01-13] MEDS ORDERED: METOCLOPRAMIDE HCL INJ/PF 10 MG/2 ML SDV IV ONE (20:34)
[2019-01-13] MEDS ORDERED: KETOROLAC TROMETHAMINE INJ/PF 30 MG/1 ML SDV IV ONE (20:34)
[2019-01-13] MEDS ORDERED: LISINOPRIL 10 MG TABLET PO ONE (21:04)
[2019-01-13] MEDS ORDERED: AMLODIPINE BESYLATE 10 MG TABLET PO ONE (21:04)
--- NOTE | 2019-01-13 21:04 | ER Document Report ---
ED General - General Chief Complaint: Headache Stated Complaint: HEADACHE Time Seen by Provider: 01/13/19 20:33 Primary Care Provider: EVANGELIST GOODE MD [Primary Care Provider] - Follow up tomorrow Notes: Patient is a 48-year old female with past medical history of essential hypertension, presents complaining of a headache that started last evening and has been progressively worsening since onset. Patient describes the headache as being mostly located over the right side of her face and right temporal parietal scalp region. Describes this as being a dull, throbbing, constant pain. Worsened by lights, sounds. Associated with nausea but no vomiting. Denies any focal weakness, numbness, fever, neck pain or confusion. Has a history of similar headaches in the past but not to this degree of intensity. The patient denies that at any point the headache was abrupt in onset. No exertional component to the headache. No head trauma. She has tried ibuprofen with minimal to no relief of the headache. TRAVEL OUTSIDE OF THE [place] IN LAST 30 DAYS: No - Related Data Allergies/Adverse Reactions: codeine [Codeine] Allergy (Verified 01/13/19 20:06) Penicillins Allergy (Verified 01/13/19 20:06) Sulfa (Sulfonamide Antibiotics) Allergy (Verified 01/13/19 20:06) Past Medical History - General Information source: Patient - Social History Smoking Status: Current Every Day Smoker Chew tobacco use (# tins/day): No Frequency of alcohol use: None Drug Abuse: None Lives with: Family Family History: Hypertension Patient has suicidal ideation: No Patient has homicidal ideation: No - Past Medical History Cardiac Medical History: Reports: Hx Hypertension - stopped meds 2 years ago Denies: Hx Coronary Artery Disease Pulmonary Medical History: Reports: Hx Pneumonia Neurological Medical History: Reports: Hx Migraine Endocrine Medical History: Denies: Hx Diabetes Mellitus Type 1, Hx Diabetes Mellitus Type 2 Renal/ Medical History: Denies: Hx Peritoneal Dialysis Musculoskeletal Medical History: Reports Hx Arthritis - Rheumatoid Psychiatric Medical History: Reports: Hx Depression Past Surgical History: Reports: Hx Cholecystectomy, Hx Gynecologic Surgery, Hx Orthopedic Surgery - Left hip replacement twice, 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 HENT: Negative for sore throat. Eyes: Negative for visual changes. Cardiovascular: Negative for chest pain. Respiratory: Negative for shortness of breath. Gastrointestinal: Negative for abdominal pain, positive for nausea Genitourinary: Negative for dysuria. Musculoskeletal: Negative for back pain. Skin: Negative for rash. Neurological: Positive for headache 10 point ROS negative except as marked above and in HPI. Physical Exam - Vital signs Vitals: Temp Pulse Resp BP Pulse Ox 98.2 F 75 18 200/99 H 98 01/13/19 20:11 01/13/19 20:11 01/13/19 20:11 01/13/19 20:11 01/13/19 20:11 Interpretation: Hypertensive Notes: PHYSICAL EXAMINATION: GENERAL: Well-appearing, well-nourished and in no acute distress. HEAD: Atraumatic, normocephalic. EYES: Pupils equal round and reactive to light, extraocular movements intact, sclera anicteric, conjunctiva are normal. ENT: nares patent, oropharynx clear without exudates. Moist mucous membranes. NECK: Normal range of motion, supple without lymphadenopathy LUNGS: Breath sounds clear to auscultation bilaterally and equal. No wheezes rales or rhonchi. HEART: Regular rate and rhythm without murmurs ABDOMEN: Soft, nontender, normoactive bowel sounds. No guarding, no rebound. No masses appreciated. EXTREMITIES: Normal range of motion, no pitting or edema. No cyanosis. NEUROLOGICAL: Face symmetric. Tongue protrudes midline. Extraocular motions intact. Pupils are 2 mm and equally reactive. Normal speech, normal gait. 5 out of 5 strength in both the distal and proximal upper and lower extremities bilaterally. Sensation is grossly intact throughout. Finger to nose testing normal. Pronator drift normal. PSYCH: Normal mood, normal affect. SKIN: Warm, Dry, normal turgor, no rashes or lesions noted. Course - Re-evaluation Re-evalutation: 01/13/19 21:04 Presentation of a headache that appears to be most consistent with tension versus migrainous type headache. Headache was not maximal in onset, patient has no focal neurologic deficits, no nuchal rigidity, vital signs within normal limits, no papilledema, and patient is overall well in appearance. Based on clinical history and examination I do not suspect an acute subarachnoid hemorrhage, dural venous sinus thrombosis, acute meningitis, or intercranial mass. Given my low clinical suspicion for any acute life-threatening etiology, I do not feel advanced neuro imaging or laboratory testing is indicated at this time. Will proceed with headache cocktail and reassess. 01/13/19 21:52 Patient has had complete resolution of her headache after receiving metoclopramide. Given patient's elevated blood pressure which is chronic in nature, I have increased her lisinopril from 5-20 mg and have added amlodipine 5 mg daily. She has been given a dose of these medications here in the emergency department and has been instructed to follow-up regarding her significant hypertension with her primary care physician. At this time will discharge with return precautions and follow-up recommendations. Verbal discharge instructions given a the bedside and opportunity for questions given. Medication warnings reviewed. Patient is in agreement with this plan and has verbalized understanding of return precautions and the need for primary care follow-up in the next 24-72 hours. - Vital Signs Vital signs: Temp Pulse Resp BP Pulse Ox 98.5 F 75 16 195/110 H 100 01/13/19 22:40 01/13/19 20:11 01/13/19 22:40 01/13/19 22:40 01/13/19 22:40 Discharge - Discharge Clinical Impression: Essential hypertension Headache Qualifiers: Headache type: unspecified Headache chronicity pattern: acute headache Intractability: not intractable Qualified Code(s): R51 - Headache Condition: Good Disposition: HOME, SELF-CARE Additional Instructions: You have been seen in the Emergency Department (ED) for a headache. Please use Tylenol (acetaminophen) or Motrin (ibuprofen) as needed for symptoms, but only as written on the box. As we have discussed, please follow up with your primary care doctor as soon as possible regarding today's ED visit and your headache symptoms. Call your doctor or return to the ED if you have a worsening headache, sudden and severe headache, confusion, slurred speech, facial droop, weakness or numbness in any arm or leg, extreme fatigue, or other symptoms that concern you. You were seen today for blood pressure that was high. This is a long-term risk factor for multiple medical problems including heart attack and stroke. However, the blood pressure in of itself will not cause you to have an acute stroke or heart attack over the course of just several days or weeks. You need to have a gradual reduction of your blood pressure back to normal levels over the next several months in conjunction with your primary care physician. Return if you develop headache, weakness, numbness, chest pain, pass out, or have any other symptoms that are concerning to you. Prescriptions: Amlodipine Besylate [Norvasc 5 mg Tablet] 5 mg PO DAILY #30 tablet Lisinopril 20 mg PO DAILY #30 tablet Referrals: EVANGELIST GOODE MD [Primary Care Provider] - Follow up tomorrow
[2019-01-13 22:46] VITALS: BP 195/110
== END 2019-01-13 22:46 | disposition home or self-care (01) ==
LOC: ER 19:53
DX: R51 Headache (principal); R11.0 Nausea; I10 Essential (primary) hypertension; Z88.6 Allergy status to analgesic agent; Z88.2 Allergy status to sulfonamides; Z88.0 Allergy status to penicillin; Z90.49 Acquired absence of other specified parts of digestive tract; Z96.642 Presence of left artificial hip joint
CPT/HCPCS: 99283; 96374; 96375; J1885; J2765; A9270 ×2

== ENCOUNTER 2019-09-04 21:15 | Emergency (ER) | payer MEDICAID, MEDICARE ==
--- NOTE | 2019-09-04 21:47 | ER Document Report ---
ED Medical Screen (RME) - General Chief Complaint: Nose Bleed Stated Complaint: NOSE BLEED Time Seen by Provider: 09/04/19 21:39 Primary Care Provider: EVANGELIST GOODE MD [Primary Care Provider] - Follow up as needed Mode of Arrival: Ambulatory Information source: Patient Notes: 48-year-old female presents to ED from bloody nose for the last 2 hours. She states she has had a sinus congestion runny nose and started with the bleeding about 2-hour goes. She states she has had bloody noses in the past. She states her house is dry at this time. She states her medical history is high blood pressure and lupus. I have greeted and performed a rapid initial assessment of this patient. A comprehensive ED assessment and evaluation of the patient, analysis of test results and completion of medical decision making process will be conducted by an additional ED providers. TRAVEL OUTSIDE OF THE [place] IN LAST 30 DAYS: No - Related Data Allergies/Adverse Reactions: codeine [Codeine] Allergy (Verified 01/13/19 20:06) Penicillins Allergy (Verified 01/13/19 20:06) Sulfa (Sulfonamide Antibiotics) Allergy (Verified 01/13/19 20:06) Past Medical History - Past Medical History Cardiac Medical History: Reports: Hx Hypertension - stopped meds 2 years ago Denies: Hx Coronary Artery Disease Pulmonary Medical History: Reports: Hx Pneumonia Neurological Medical History: Reports: Hx Migraine Endocrine Medical History: Denies: Hx Diabetes Mellitus Type 1, Hx Diabetes Mellitus Type 2 Renal/ Medical History: Denies: Hx Peritoneal Dialysis Musculoskeltal Medical History: Reports Hx Arthritis - Rheumatoid Psychiatric Medical History: Reports: Hx Depression Past Surgical History: Reports: Hx Cholecystectomy, Hx Gynecologic Surgery, Hx Orthopedic Surgery - Left hip replacement twice, 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
[2019-09-04] MEDS ORDERED: OXYMETAZOLINE HCL 0.05% NASAL SPRAY 15 ML BOTTLE NASL ONE (22:39)
[2019-09-04] MEDS ORDERED: SILVER NITRATE APPLICATOR 1 APPLIC STICK..EA. 10/PACKAGE TOP ONE (22:41)
[2019-09-04] MEDS ORDERED: TRANEXAMIC ACID INJ/PF 1,000 MG/10 ML SDV TOP SCH (22:45)
[2019-09-04] MEDS ORDERED: OXYCODONE-ACETAMINOPHEN 5-325 MG TABLET PO ONE (23:48)
[2019-09-05] MEDS ORDERED: HYDROCODONE/ACETAMINOPHEN 5-325 MG (6 TAB/ER DISP) PO PRN (01:03)
[2019-09-05 01:16] VITALS: BP 195/105
--- NOTE | 2019-09-07 14:24 | ER Document Report ---
Entered by ABENA ORNELAS SCRIBE 09/04/19 [id number] Acting as scribe for:SATISH CHAPA MD ED ENT - General Chief Complaint: Nose Bleed Stated Complaint: NOSE BLEED Time Seen by Provider: 09/04/19 21:39 Primary Care Provider: RIK NOE MD [ACTIVE STAFF] - Follow up as needed (Please call the office on Saturday for first available appointment. I would like you to be seen on Saturday of next week. If it is pushed back any later than Saturday start to take antibiotics provided to you on Saturday and continue to take as directed until seen by ENT specialist) Mode of Arrival: Ambulatory Information source: Patient Notes: 48-year-old female who presents to the emergency department today with complaints of a nosebleed. Patient has frequent nosebleeds with her last one being x2 days ago. Patient states the nosebleed x2 days ago stopped after about an hour with pressure and her packing it herself. Patient states today she went to blow her nose and while blowing it the bleeding began Patient denies the usage of any blood thinning medications. TRAVEL OUTSIDE OF THE [place] IN LAST 30 DAYS: No - Related Data Allergies/Adverse Reactions: codeine [Codeine] Allergy (Verified 01/13/19 20:06) Penicillins Allergy (Verified 01/13/19 20:06) Sulfa (Sulfonamide Antibiotics) Allergy (Verified 01/13/19 20:06) Home Medications: lisinopril. plaquenill Past Medical History - General Information source: Patient - Social History Smoking Status: Current Every Day Smoker Cigarette use (# per day): Yes Chew tobacco use (# tins/day): No Frequency of alcohol use: None Drug Abuse: None Family History: Hypertension Patient has suicidal ideation: No Patient has homicidal ideation: No - Past Medical History Cardiac Medical History: Reports: Hx Hypertension - stopped meds 2 years ago Pulmonary Medical History: Reports: Hx Pneumonia Neurological Medical History: Reports: Hx Migraine Musculoskeletal Medical History: Reports Hx Arthritis - Rheumatoid Psychiatric Medical History: Reports: Hx Depression Past Surgical History: Reports: Hx Cholecystectomy, Hx Gynecologic Surgery, Hx Orthopedic Surgery - Left hip replacement twice, 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., Hx Tonsillectomy - Immunizations Immunizations up to date: No Hx Diphtheria, Pertussis, Tetanus Vaccination: Yes - unknown Review of Systems - Review of Systems Constitutional: No symptoms reported EENT: See HPI, Other - nose bleed Cardiovascular: No symptoms reported Respiratory: No symptoms reported Gastrointestinal: No symptoms reported Genitourinary: No symptoms reported Female Genitourinary: No symptoms reported Musculoskeletal: No symptoms reported Skin: No symptoms reported Hematologic/Lymphatic: No symptoms reported Neurological/Psychological: No symptoms reported -: Yes All other systems reviewed and negative Physical Exam - Vital signs Vitals: Temp Pulse BP Pulse Ox 98.3 F 102 H 172/98 H 100 09/04/19 21:38 09/04/19 21:38 09/04/19 21:38 09/04/19 21:38 - Notes Notes: Physical Exam: General: Alert, appears well. HEENT: Normocephalic. Atraumatic. PERRL. Extraocular movements intact. Oropharynx clear. Dried red blood in the posterior oropharynx and on tongue. No active bleeding. Patient currently has packing in bilateral nares. Patient states she does not think it is bleeding currently. Neck: Supple. Non-tender. Respiratory: No respiratory distress. Clear and equal breath sounds bilaterally. Cardiovascular: Regular rate and rhythm. Abdominal: Normal Inspection. Non-tender. No distension. Normal Bowel Sounds. Back: No gross abnormalities. Extremities: Moves all four extremities. Upper extremities: Normal inspection. Normal ROM. Lower extremities: Normal inspection. No edema. Normal ROM. Neurological: Normal cognition. AAOx4. Normal speech. Psychological: Normal affect. Normal Mood. Skin: Warm. Dry. Normal color. Course - Re-evaluation Re-evalutation: 09/05/19 00:55 4 x 4's were soaked with 500 mg each of TXA after 4 squirts of Afrin were placed in each nares. Hemostasis was achieved until 4 x 4's were pulled out of nares. Patient had mild amount of bleeding out of right nares and moderate amount of bleeding out of right nares after 4 x 4's were pulled. At that point, anterior nasal packing was placed into left nares hemostasis achieved. 2 silver nitrate sticks were used to fine anterior bleeders in the left nares with hemostasis achieved. 09/05/19 00:57 Patient was provided referral to , ENT, to be seen Saturday of next week for evalation. Pt was provided scription of Keflex to start taking on Saturday if her appointment is pushed back any later than that date. - Vital Signs Vital signs: Temp Pulse Resp BP Pulse Ox 98.3 F 102 H 172/98 H 100 09/04/19 21:38 09/04/19 21:38 09/04/19 21:38 09/04/19 21:38 Discharge - Discharge Clinical Impression: Epistaxis Condition: Good Disposition: HOME, SELF-CARE Prescriptions: Cephalexin Monohydrate [Keflex 500 mg Capsule] 500 mg PO Q6H 5 Days capsule Referrals: RIK NOE MD [ACTIVE STAFF] - Follow up as needed (Please call the office on Saturday for first available appointment. I would like you to be seen on Saturday of next week. If it is pushed back any later than Saturday start to take antibiotics provided to you on Saturday and continue to take as directed until seen by ENT specialist) I personally performed the services described in the documentation, reviewed and edited the documentation which was dictated to the scribe in my presence, and it accurately records my words and actions.
== END 2019-09-05 01:16 | disposition home or self-care (01) ==
LOC: ER 21:15
PROC: 093K7ZZ Control Bleeding in Nasal Mucosa and Soft Tissue, Via Natural or Artificial Opening (ICD-10-PCS; principal; 2019-09-04)
DX: R04.0 Epistaxis (principal); Z79.899 Other long term (current) drug therapy; F17.210 Nicotine dependence, cigarettes, uncomplicated; I10 Essential (primary) hypertension
CPT/HCPCS: 99283; 30901; J3490 ×2

== ENCOUNTER 2019-11-16 17:01 | Emergency (ER) | payer BC ==
--- NOTE | 2019-11-16 17:16 | ER Document Report ---
ED Medical Screen (RME) - General Chief Complaint: Fall Injury Stated Complaint: FALL/BACK,RIGHT HIP PAIN Time Seen by Provider: 11/16/19 17:10 Primary Care Provider: EVANGELIST GOODE MD [Primary Care Provider] - Follow up as needed TRAVEL OUTSIDE OF THE [place] IN LAST 30 DAYS: No - HPI Notes: 11/16/19 17:14 Patient is a 48-year-old female with a history of hip replacement as well as sciatica who presents complaining of acute on chronic right low back pain and right hip pain status post fall this morning. Patient states that she slipped going to her house twisted and fell on her right side. She denied her head or lose conscious. Patient states that pain starts in her back and does radiate down into her anterior thigh. Patient states that she does have an abscess to her left axilla that is starting to drain. Patient states that her family doctor did start on clindamycin over the past day, but it has not been cut open and does not feel that it is improving at this time. No fever. No trouble urinating. No saddle anesthesia. I have treated and performed a rapid initial assessment of this patient. A comprehensive ED assessment and evaluation of the patient, analysis of test results and completion of medical decision making process will be conducted by additional ED providers. PHYSICAL EXAMINATION: GENERAL: Well-appearing, well-nourished and in no acute distress. A&Ox4. Answers questions appropriately. Back: There is tenderness to the right L paraspinal area as well as the right hip/buttock to palpation. SLR negative. Left axilla: There is a fluctuant abscess to the area that is also tender and has scant purulent discharge noted. - Related Data Allergies/Adverse Reactions: codeine [Codeine] Allergy (Verified 01/13/19 20:06) Penicillins Allergy (Verified 01/13/19 20:06) Sulfa (Sulfonamide Antibiotics) Allergy (Verified 01/13/19 20:06) Past Medical History - Past Medical History Cardiac Medical History: Reports: Hx Hypertension - stopped meds 2 years ago Denies: Hx Coronary Artery Disease Pulmonary Medical History: Reports: Hx Pneumonia Neurological Medical History: Reports: Hx Migraine Endocrine Medical History: Denies: Hx Diabetes Mellitus Type 1, Hx Diabetes Mellitus Type 2 Renal/ Medical History: Denies: Hx Peritoneal Dialysis Musculoskeltal Medical History: Reports Hx Arthritis - Rheumatoid Psychiatric Medical History: Reports: Hx Depression Past Surgical History: Reports: Hx Cholecystectomy, Hx Gynecologic Surgery, Hx Orthopedic Surgery - Left hip replacement twice, 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
--- NOTE | 2019-11-16 17:46 | RADIOLOGY REPORT (SQ) ---
EXAM DESCRIPTION: L SPINE WHOLE COMPLETED DATE/TIME: 11/16/2019 5:33 pm REASON FOR STUDY: pain s/p fall rt COMPARISON: Lumbar spine films 08/09/2015 NUMBER OF VIEWS: Five views including obliques. TECHNIQUE: AP, lateral, oblique, and sacral radiographic images acquired of the lumbar spine. LIMITATIONS: None. FINDINGS: MINERALIZATION: Normal. SEGMENTATION: Normal. No transitional anatomy. ALIGNMENT: Grade 1 anterolisthesis L4 over L5 related to advanced facet arthropathy VERTEBRAE: Maintained height. No fracture or worrisome bone lesion. DISCS: Disc space loss of height at L4-5 POSTERIOR ELEMENTS: Advanced facet arthropathy at L4-5, moderate facet arthropathy at L5-S1 HARDWARE: Clips right upper quadrant post cholecystectomy. Right hip replacement PARASPINAL SOFT TISSUES: Normal. PELVIS: SI joints intact. OTHER: No other significant finding. IMPRESSION: No acute findings. Degenerative grade 1 anterolisthesis of L4 over L5 TECHNICAL DOCUMENTATION: JOB ID: [id number] [employer]- All Rights Reserved Reading location - IP/workstation name: [email or web address]
--- NOTE | 2019-11-16 17:47 | RADIOLOGY REPORT (SQ) ---
EXAM DESCRIPTION: PELVIS AP COMPLETED DATE/TIME: 11/16/2019 5:33 pm REASON FOR STUDY: pain s/p fall rt COMPARISON: Lumbar spine films same date NUMBER OF VIEWS: One view TECHNIQUE: AP Pelvis LIMITATIONS: None. FINDINGS: MINERALIZATION: Normal. HIPS: Bilateral hip replacements. No lucency around the hardware worrisome for loosening. PELVIS AND SACRUM: No acute fracture or dislocation. No worrisome bone lesions. PUBIS AND ISCHIUM: No acute fracture. LOWER LUMBAR SPINE: Lower lumbar facet arthropathy SOFT TISSUES: No findings. OTHER: No other significant finding. IMPRESSION: No acute findings COMMENT: Pelvic fractures are often occult on plain radiographs. If strong clinical suspicion for f racture, recommend CT or MR. TECHNICAL DOCUMENTATION: JOB ID: [id number] [employer]- All Rights Reserved Reading location - IP/workstation name: [email or web address]
[2019-11-16] MEDS ORDERED: KETOROLAC TROMETHAMINE 60 MG/2 ML SDV IM ONE (18:57)
[2019-11-16] MEDS ORDERED: DEXAMETHASONE SOD PHOS INJ 10 MG/1 ML VIAL IM ONE (18:57)
--- NOTE | 2019-11-16 19:00 | ER Document Report ---
ED Fall - General Chief Complaint: Back Injury Stated Complaint: FALL/BACK,RIGHT HIP PAIN Time Seen by Provider: 11/16/19 17:10 Primary Care Provider: EVANGELIST GOODE MD [Primary Care Provider] - Follow up as needed Mode of Arrival: Ambulatory Information source: Patient Notes: This 48-year-old woman presents to the emergency department with a history of fall which occurred at her home this morning. She states that she was getting off work, stumbled and fell. She was carrying a book bag which pulled to her right at the time she was doing okay and so went home and went to bed. Later she awoke with back pain which radiates onto the right lumbar region and into the buttock and right thigh. She has a history of sciatica in the past and she has had hip replacement surgery x3. She denies any other associated injuries. TRAVEL OUTSIDE OF THE [place] IN LAST 30 DAYS: No - Related data Allergies/Adverse Reactions: codeine [Codeine] Allergy (Verified 01/13/19 20:06) Penicillins Allergy (Verified 01/13/19 20:06) Sulfa (Sulfonamide Antibiotics) Allergy (Verified 01/13/19 20:06) Past Medical History - Social History Smoking Status: Current Every Day Smoker Family History: Hypertension Patient has suicidal ideation: No Patient has homicidal ideation: No - Past Medical History Cardiac Medical History: Reports: Hx Hypertension - stopped meds 2 years ago Denies: Hx Coronary Artery Disease Pulmonary Medical History: Reports: Hx Pneumonia Neurological Medical History: Reports: Hx Migraine Endocrine Medical History: Denies: Hx Diabetes Mellitus Type 1, Hx Diabetes Mellitus Type 2 Renal/ Medical History: Denies: Hx Peritoneal Dialysis Musculoskeletal Medical History: Reports Hx Arthritis - Rheumatoid Psychiatric Medical History: Reports: Hx Depression Past Surgical History: Reports: Hx Cholecystectomy, Hx Gynecologic Surgery, Hx Orthopedic Surgery - Left hip replacement twice, 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 HENT: Negative for sore throat. Eyes: Negative for visual changes. Cardiovascular: Negative for chest pain. Respiratory: Negative for shortness of breath. Gastrointestinal: Negative for abdominal pain, vomiting or diarrhea. Genitourinary: Negative for dysuria. Musculoskeletal: + Back pain, + right hip pain. Skin: Negative for rash. Neurological: Negative for headaches, weakness or numbness. 10 point ROS negative except as marked above and in HPI. Physical Exam - Vital signs Vitals: Temp Pulse Resp BP Pulse Ox 98.3 F 87 20 100/65 98 11/16/19 17:06 11/16/19 17:06 11/16/19 17:11/16/19 17:11/16/19 17:06 - Notes Notes: PHYSICAL EXAMINATION: Physical Exam: General: Well-nourished well-developed female in no acute distress HEENT: NC/AT, pupils equal round and reactive to light, MM moist,nares clear, Neck: supple, no adenopathy, no masses. Lungs: clear, no wheezing, no rales no rhonchi CVS: Regular rate and rhythm no murmur gallop or rub Abdomen: Soft active nontender, no masses, no hepatosplenomegaly Back: Tenderness in the right paraspinous muscle group lumbar region, tenderness in the upper right buttock region Ext: No edema clubbing or cyanosis. Neuro: Alert and responsive, moving all 4 extremities on command, cranial nerves intact. Skin: Intact no open lesions, no rash PSYCH: Normal mood, normal affect. Course - Re-evaluation Re-evalutation: 11/16/19 19:00 I have reviewed the x-rays, no fracture and no dislocations are noted on the pelvic x-ray, patient has bilateral hip replacement surgery and the hardware appears to be stable. Lumbar x-ray reveals no fracture or dislocation she has an anteriolisthesis L4-L5. I have reviewed the findings with the patient and explained to her that we will treat her symptomatically with anti- inflammatories, short course of steroids and a muscle relaxant. She is in agreement with that plan. Have also given her a note excusing her from the workplace which is very physical until Saturday. The patient is in agreement with this plan and will follow-up with her primary care doctor as needed. - Vital Signs Vital signs: Temp Pulse Resp BP Pulse Ox 98.3 F 87 20 100/65 98 11/16/19 17:06 11/16/19 17:11/16/19 17:11/16/19 17:11/16/19 17:06 - Diagnostic Test Radiology reviewed: Image reviewed, Reports reviewed - Pelvis x-ray: No obvious fracture, no disruption of her bilateral hip replacements Lumbar x-ray: No acute fracture, anterolisthesis L4-L5 Discharge - Discharge Clinical Impression: Sciatica Acute myofascial strain of lumbar region Qualifiers: Encounter type: initial encounter Qualified Code(s): S39.012A - Strain of muscle, fascia and tendon of lower back, initial encounter Condition: Good Disposition: HOME, SELF-CARE Instructions: Ice Packs ([facility]), Pain Medication Injection ([facility]), Low Back Pain ([facility]), Sciatica ([facility]) Additional Instructions: You were diagnosed with injury to the lower back and associated sciatica. Medications are prescribed a muscle relaxant, anti-inflammatory, and a steroid for treatment. Using a cold compress to the area may be useful and stretching exercises once the pain has decreased. Please follow-up with your doctor as needed or if your symptoms are increasing or other concerns you may return to the emergency department. Forms: Return to Work Referrals: EVANGELIST GOODE MD [Primary Care Provider] - Follow up as needed
[2019-11-16 19:32] VITALS: BP 91/59
[2019-11-16] MEDS ORDERED: LIDOCAINE 1% INJ-PF (10 MG/ML) 30 ML SDV INJ ONE (19:51)
== END 2019-11-16 21:11 | disposition home or self-care (01) ==
LOC: ER 17:01
DX: S39.012A Strain of muscle, fascia and tendon of lower back, initial encounter (principal); M54.30 Sciatica, unspecified side; W01.0XXA Fall on same level from slipping, tripping and stumbling without subsequent striking against object, initial encounter; Z96.643 Presence of artificial hip joint, bilateral; Z88.6 Allergy status to analgesic agent; Z88.2 Allergy status to sulfonamides; Z88.0 Allergy status to penicillin
CPT/HCPCS: 99283; 96372; 72110; 72170; J1885; J1100; J3490

== ENCOUNTER → 2019-11-27 | Outpatient (CLI) | payer BC ==
--- NOTE | 2019-11-30 13:01 | WOMENS IMAGING REPORT ---
EXAM DESCRIPTION: 3D SCREENING MAMMO BILAT COMPLETED DATE/TIME: 11/27/2019 2:13 pm REASON FOR STUDY: Z12.31 SCREENING MAMMO Z12.31 ENCNTR SCREEN MAMMOGRAM FOR MALIGNANT NEOPLASM OF B RE COMPARISON: None. EXAM PARAMETERS: Views: Standard craniocaudal and mediolateral oblique views of each breast recorded using digital acquisition and breast tomosynthesis. Read with the assistance of CAD. .[facility] Imaging - R2 [employer]ova Version 2.1 LIMITATIONS: None. FINDINGS: No suspicious masses, suspicious calcifications or architectural distortion. No areas of c oncern. IMPRESSION: NEGATIVE MAMMOGRAM. BIRADS 1. BREAST DENSITY: b. There are scattered areas of fibroglandular density. BIRAD: ASSESSMENT: 1 NEGATIVE RECOMMENDATION: ROUTINE SCREENING COMMENT: The patient has been notified of the results by letter per MQSA requirements. Additional no tification policies are in place for contacting patient with suspicious or incomplete findings. Quality ID #[id number]: [employer] recommends an annual screening mammogram for women aged 40 years or over. This facility utilizes a reminder system to ensure that all patients receive reminder letters, and/or direct phone calls for appointments. This includes reminders for routine scr eening mammograms, diagnostic mammograms, or other Breast Imaging Interventions when appropriate. Th is patient will be placed in the appropriate reminder system. TECHNICAL DOCUMENTATION: FINDING NUMBER: (1) ASSESSMENT: (1) JOB ID: [id number] [employer]- All Rights Reserved Reading location - IP/workstation name: [email or web address]
== END ==
LOC: WI 13:45
PROVIDERS: ATTEND Internal Medicine
DX: Z12.31 Encounter for screening mammogram for malignant neoplasm of breast (principal)
CPT/HCPCS: 77063; 77067

== ENCOUNTER 2019-12-21 13:36 | Emergency (ER) | payer BC ==
--- NOTE | 2019-12-21 14:31 | ER Document Report ---
ED Medical Screen (RME) - General Chief Complaint: Chest Pain Stated Complaint: CHEST PAIN Time Seen by Provider: 12/21/19 14:26 Primary Care Provider: EVANGELIST GOODE MD [Primary Care Provider] - Follow up as needed TRAVEL OUTSIDE OF THE [place] IN LAST 30 DAYS: No - HPI Notes: 12/21/19 14:28 Patient is a 49-year-old female with a history of lupus who presents complaining of substernal chest pain that began 2 days ago. Patient states that she has developed an occasional dry cough last night. No fever. Denies any prolonged immobilization, distance travel, recent surgery/trauma, personal cancer history, hormone use, or previous DVT/PE. Denies SANTAMARIA, fever, neck pain, URI, n/v/d, Abd pain, dysuria, back pain, or rash. I have treated and performed a rapid initial assessment of this patient. A comprehensive ED assessment and evaluation of the patient, analysis of test results and completion of medical decision making process will be conducted by additional ED providers. PHYSICAL EXAMINATION: GENERAL: Well-appearing, well-nourished and in no acute distress. A&Ox4. Answers questions appropriately. LUNGS: Breath sounds clear to auscultation bilaterally and equal. No wheezes rales or rhonchi. HEART: Regular rate and rhythm without murmurs, rubs, gallops. Extremities: No cyanosis, clubbing, or edema b/l. Lele negative bilaterally. No lower extremity asymmetry. NEUROLOGICAL: Normal speech, normal gait. PSYCH: Normal mood, normal affect. - Related Data Allergies/Adverse Reactions: codeine [Codeine] Allergy (Verified 12/21/19 14:25) Penicillins Allergy (Verified 12/21/19 14:25) Sulfa (Sulfonamide Antibiotics) Allergy (Verified 12/21/19 14:25) Past Medical History - Past Medical History Cardiac Medical History: Reports: Hx Hypertension - stopped meds 2 years ago Denies: Hx Coronary Artery Disease Pulmonary Medical History: Reports: Hx Pneumonia Neurological Medical History: Reports: Hx Migraine Endocrine Medical History: Denies: Hx Diabetes Mellitus Type 1, Hx Diabetes Mellitus Type 2 Renal/ Medical History: Denies: Hx Peritoneal Dialysis Musculoskeltal Medical History: Reports Hx Arthritis - Rheumatoid Psychiatric Medical History: Reports: Hx Depression Past Surgical History: Reports: Hx Cholecystectomy, Hx Gynecologic Surgery, Hx Orthopedic Surgery - Left hip replacement twice, 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
--- NOTE | 2019-12-21 15:31 | RADIOLOGY REPORT (SQ) ---
EXAM DESCRIPTION: CHEST 2 VIEWS COMPLETED DATE/TIME: 12/21/2019 3:14 pm REASON FOR STUDY: CP COMPARISON: PA and lateral views of the chest from 11/23/2017. EXAM PARAMETERS: NUMBER OF VIEWS: Two views. TECHNIQUE: PA and lateral views of the chest were obtained.. RADIATION DOSE: NA LIMITATIONS: none FINDINGS: LUNGS AND PLEURA: No consolidation, pleural effusion or pneumothorax. MEDIASTINUM AND HILAR STRUCTURES: No mediastinal or hilar contour abnormality. HEART AND VASCULAR STRUCTURES: The cardiac silhouette and pulmonary vasculature are within normal armijo its. BONES: No acute findings. HARDWARE: Cholecystectomy clips. OTHER: No other finding. IMPRESSION: No acute cardiopulmonary process. TECHNICAL DOCUMENTATION: JOB ID: [id number] 2010 [employer]- All Rights Reserved Reading location - IP/workstation name: [email or web address]
[2019-12-21 16:27] LABS: ALBUMIN 4.2 g/dL (3.5-5.0); ALKALINE PHOSPHATASE 48 U/L (38-126); ANION GAP 9 (5-19); ASPARTATE AMINO TRANSFERASE 33 U/L (14-36); BILIRUBIN,DIRECT 0.4 mg/dL (0.0-0.4); BILIRUBIN,TOTAL 0.4 mg/dL (0.2-1.3); BLOOD UREA NITROGEN 5 mg/dL (7-20); CALCIUM 9.4 mg/dL (8.4-10.2); CARBON DIOXIDE 27 mmol/L (22-30); CHLORIDE 105 mmol/L (98-107); GLUCOSE 72 mg/dL (75-110); TOTAL PROTEIN 7.7 g/dL (6.3-8.2)
[2019-12-21 16:30] LABS: ABSOLUTE EOSINOPHILS # (AUTO) 0.1 10^3/uL (0.0-0.6); ABSOLUTE LYMPHOCYTES (AUTO) 2.7 10^3/uL (0.5-4.7); ABSOLUTE MONOCYTES (AUTO) 0.6 10^3/uL (0.1-1.4); BASOPHILS % (AUTO) 0.3 % (0-2); EOSINOPHILS % (AUTO) 1.5 % (0-6); HEMATOCRIT 31.8 % (36.0-47.0); HEMOGLOBIN 10.8 g/dL (12.0-15.5); LYMPHOCYTES % (AUTO) 36.8 % (13-45); MEAN CORPUSCULAR HEMOGLOBIN 26.8 pg (27.0-33.4); MEAN CORPUSCULAR HGB CONC 33.9 g/dL (32.0-36.0); MEAN CORPUSCULAR VOLUME 79 fl (80-97); MONOCYTES % (AUTO) 8.2 % (3-13); RED BLOOD COUNT 4.02 10^6/uL (3.72-5.28); RED CELL DISTRIBUTION WIDTH 16.1 % (11.5-14.0); SEGMENTED NEUTROPHILS % (AUTO) 53.2 % (42-78); TOTAL CELLS COUNTED % (AUTO) 100 %; WHITE BLOOD COUNT 7.4 10^3/uL (4.0-10.5)
[2019-12-21 16:31] LABS: PLATELET COUNT 162 10^3/uL (150-450)
--- NOTE | 2019-12-21 18:10 | EKG REPORT ---
SEVERITY:- NORMAL ECG - SINUS RHYTHM : Confirmed by: Sparkle Palomares MD 21-Dec-2019 18:09:30
[2019-12-21] MEDS ORDERED: NORMAL SALINE 1000 ML 1,000 ML IV ONE (19:40)
[2019-12-21] MEDS ORDERED: KETOROLAC TROMETHAMINE INJ/PF 30 MG/1 ML SDV IV ONE (19:40)
--- NOTE | 2019-12-21 21:07 | ER Document Report ---
ED General - General Chief Complaint: Chest Pain Stated Complaint: CHEST PAIN Time Seen by Provider: 12/21/19 14:26 Primary Care Provider: EVANGELIST GOODE MD [Primary Care Provider] - Follow up as needed Mode of Arrival: Ambulatory Information source: Patient TRAVEL OUTSIDE OF THE [place] IN LAST 30 DAYS: No - HPI Notes: Patient presents with chest pain and dry cough. She states she has had this for approximately 2 days. The chest pain is in the center of her chest and radiates to her back. It is intermittent. Nothing makes it better or worse. Is mild to moderate intensity. She also states that she has a chronic history of sciatica in her right leg has been having some increased abnormal sensations. No vomiting or diarrhea. No fevers. - Related Data Allergies/Adverse Reactions: codeine [Codeine] Allergy (Verified 12/21/19 14:25) Penicillins Allergy (Verified 12/21/19 14:25) Sulfa (Sulfonamide Antibiotics) Allergy (Verified 12/21/19 14:25) Past Medical History - General Information source: Patient - Social History Smoking Status: Current Every Day Smoker Frequency of alcohol use: None Drug Abuse: None Family History: Hypertension Patient has suicidal ideation: No Patient has homicidal ideation: No - Past Medical History Cardiac Medical History: Reports: Hx Hypertension - stopped meds 2 years ago Denies: Hx Coronary Artery Disease Pulmonary Medical History: Reports: Hx Pneumonia Neurological Medical History: Reports: Hx Migraine Endocrine Medical History: Denies: Hx Diabetes Mellitus Type 1, Hx Diabetes Mellitus Type 2 Renal/ Medical History: Denies: Hx Peritoneal Dialysis Musculoskeletal Medical History: Reports Hx Arthritis - Rheumatoid Psychiatric Medical History: Reports: Hx Depression Past Surgical History: Reports: Hx Cholecystectomy, Hx Gynecologic Surgery, Hx Orthopedic Surgery - Left hip replacement twice, 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 denies: Palpitations Respiratory: Cough. denies: Short of breath -: Yes All other systems reviewed and negative Physical Exam - Vital signs Vitals: Temp Pulse Resp BP Pulse Ox 98.9 F 91 16 125/71 99 12/21/19 14:25 12/21/19 14:25 12/21/19 14:25 12/21/19 14:25 12/21/19 14:25 Interpretation: Normal - General General appearance: Appears well, Alert - HEENT Head: Normocephalic, Atraumatic Eyes: Normal Pupils: PERRL - Respiratory Respiratory status: No respiratory distress Chest status: Nontender Breath sounds: Normal Chest palpation: Normal - Cardiovascular Rhythm: Regular Heart sounds: Normal auscultation Murmur: No - Abdominal Inspection: Normal Distension: No distension Bowel sounds: Normal Tenderness: Nontender Organomegaly: No organomegaly - Back Back: Normal, Nontender - Extremities General upper extremity: Normal inspection, Nontender, Normal color, Normal ROM, Normal temperature General lower extremity: Normal inspection, Nontender, Normal color, Normal ROM, Normal temperature, Normal weight bearing. No: Lele's sign - Neurological Neuro grossly intact: Yes Cognition: Normal Orientation: AAOx4 [place] Coma Scale Eye Opening: Spontaneous [place] Coma Scale Verbal: Oriented [place] Coma Scale Motor: Obeys Commands Baltazar Coma Scale Total: 15 Speech: Normal Motor strength normal: LUE, RUE, LLE, RLE Sensory: Normal - Psychological Associated symptoms: Normal affect, Normal mood - Skin Skin Temperature: Warm Skin Moisture: Dry Skin Color: Normal Course - Re-evaluation Re-evalutation: 12/21/19 21:04 Patient presents with substernal chest pain. Her exam and work were not consistent with aortic disease. There is no evidence of cardiac pathology. She does not have any evidence of pneumonia. She may possibly have a viral bronchitis or viral syndrome. Patient has a PERC score of 0. Patient also has some right leg paresthesias consistent with her chronic sciatica. She will be treated with NSAIDs and steroids. - Vital Signs Vital signs: Temp Pulse Resp BP Pulse Ox 98.9 F 91 14 115/82 97 12/21/19 14:25 12/21/19 14:25 12/21/19 20:00 12/21/19 20:00 12/21/19 20:00 - Laboratory Result Diagrams: 12/21/19 15:38 12/21/19 15:38 Laboratory results interpreted by me: 12/21/19 12/21/19 15:38 15:38 Hgb 10.8 L Hct 31.8 L MCV 79 L MCH 26.8 L RDW 16.1 H BUN 5 L Glucose 72 L - Diagnostic Test Radiology reviewed: Image reviewed, Reports reviewed - EKG Interpretation by Me EKG shows normal: Sinus rhythm Rate: Normal - 89 Rhythm: NSR [place]/QRS: No: Right axis deviation, Left axis deviation Discharge - Discharge Clinical Impression: Right sided sciatica, Viral syndrome Condition: Stable Disposition: HOME, SELF-CARE Instructions: Viral Syndrome ([facility]), Chest Pain of Unclear Cause ([facility]) Additional Instructions: Please call your primary care doctor first thing in the morning to arrange follow-up Prescriptions: Prednisone [Deltasone 20 mg Tablet] 3 tab PO DAILY 5 Days tablet Naproxen 500 mg PO BID PRN 5 Days #15 tablet PRN Reason: Forms: Return to Work Referrals: EVANGELIST GOODE MD [Primary Care Provider] - Follow up tomorrow
[2019-12-21 21:40] VITALS: BP 111/71
== END 2019-12-21 21:39 | disposition home or self-care (01) ==
LOC: ER 13:36
DX: R07.9 Chest pain, unspecified (principal)
CPT/HCPCS: 93005; 99285; 96361; 96374; 36415; 85025; 80053; 84484; 71046; 93010; J1885; J7030

== ENCOUNTER → 2020-01-29 | Outpatient (CLI) | payer BC ==
--- NOTE | 2020-01-29 13:36 | RADIOLOGY REPORT (SQ) ---
EXAM DESCRIPTION: MRI LUMBAR SPINE WITHOUT IMAGES COMPLETED DATE/TIME: 01/29/2020 12:51 pm REASON FOR STUDY: LUMBAR RADICULOPATHY (M54.16) M54.16 RADICULOPATHY, LUMBAR REGION COMPARISON: 11/16/2019 radiograph TECHNIQUE: Sagittal and Axial imaging includes T1, T2, STIR and gradient echo sequences. Coronal T2/ HASTE imaging. LIMITATIONS: None. FINDINGS: VISUALIZED UPPER ABDOMEN: Limited evaluation. No acute or suspicious findings suggested. SEGMENTATION: No transitional anatomy. The lowest well-developed disc space is labeled L5-S1. ALIGNMENT: Grade 1 anterolisthesis of L4 on L5, stable. VERTEBRAE: Intact. BONE MARROW: Heterogeneous marrow signal throughout without definitive marrow replacing process. Chr onic endplate change at T12 and L1. DISC SIGNAL: Disc desiccation height loss at L4-5. POSTERIOR ELEMENTS: Generally intact. No pars defect evident. HARDWARE: None in the spine. CORD AND CONUS: Normal in size and signal intensity. Conus medullaris terminates at L1. SOFT TISSUES: No aortic aneurysm seen. No bulky retroperitoneal adenopathy or mass. No paraspinal mas s or fluid. L1-L2: No significant spinal stenosis or exit foraminal stenosis. L2-L3: No significant spinal stenosis or exit foraminal stenosis. L3-L4: Tiny circumferential disc bulge without significant spinal canal stenosis. Mild neural forami nal narrowing secondary to disc bulge, left greater than right. L4-L5: Grade 1 anterolisthesis of L4 on L5. There is disc desiccation and height loss with broad-bas ed posterior disc bulge resulting in qpux-nh-xuskerzo canal stenosis. There is narrowing of the late ral recesses with contact of the traversing nerve roots. There is moderate bilateral neural foramina l narrowing secondary to disc and facet disease. L5-S1: No significant spinal stenosis or exit foraminal stenosis. LOWER THORACIC: Incompletely imaged. No stenosis seen. SACRUM: Visualized upper sacrum intact. OTHER: Left renal cyst. IMPRESSION: 1. No evidence of acute bony abnormality of the lumbar spine. 2. There is unchanged grade 1 anterolisthesis of L4 on L5. Disc desiccation and height loss with br oad posterior disc bulge resulting in [id number] canal stenosis and narrowing of the lateral re cesses with contact of the traversing nerve roots. There is moderate bilateral neural foraminal narr owing secondary to disc and facet disease at that level. 3. Mild additional level specific findings as above. TECHNICAL DOCUMENTATION: JOB ID: [id number] 2010 [employer]- All Rights Reserved Reading location - IP/workstation name: [email or web address]
== END ==
LOC: RAD 12:06
PROVIDERS: ATTEND Internal Medicine
DX: M54.16 Radiculopathy, lumbar region (principal); N28.1 Cyst of kidney, acquired
CPT/HCPCS: 72148